=== PATIENT | male | born 1960 | race Caucasian/White ===

== ENCOUNTER 2024-06-12 18:12 | Emergency (ER) | payer BC, SELFPAY ==
--- OUTSIDE RECORDS SUMMARY | 2024-06-12 18:15 | XMS_ITS | Encounter Summary ---
Author Organization [facility] Address [address] [place] [address] Care Team Providers Care Automation Design Engineer Name Role Phone Lula Ruiz M.D. Primary Care Provider + Reason for Visit * Reason Comments HERNIA Encounter Details Date Type Department Care Team ([facility] st Contact Info) Description 06/08/2024 2:34 PM ACCOUNTING PROFESSIONAL - 06/08/2024 11:59 PM ACCOUNTING PROFESSIONAL Emergency [facility] [address] [place] [id number] Hernia Inguinal (Primary Dx) Discharge Disposition: Home or Self Care Social History Tobacco Use Types Packs/Day Years Used Date Smoking Tobacco: Every Day Cigarettes 0.8 25 Passive Smoke Exposure: Current Smokeless Tobacco: Never Alcohol Use Standard Drinks/Week Comments Yes 30 (1 standard drink = 0.6 oz pu re alcohol) Daily caffeine [facility] Utilities Answer Date Recorded In the past 12 months has [facility] [employer], oil, or water [employer] threatened to shut off services in your home? No 07/22/2023 Humiliation, Afraid, Rape, and Kick questionnair e Answer Date Recorded Within the last year, have y ou been afraid of your partner or ex-partner? No 07/13/2022 Within the last year, have y ou been humiliated or emotionally abused in other ways by your partner or ex-partner? No Within the last year, have y ou been kicked, hit, slapped, or otherwise physically hurt by your partner or ex-partner? No 07/13/2022 Within the last year, have y ou been raped or forced to have any kind of sexual activity by your partner or ex-partner? No 07/13/2022 Social Connection and Isolation Panel [NHANES] A nswer Date Recorded In a typical week, how many times do you talk on the phone with family, friends, or neighbors? Once a week 07/13/19 How often do you get togethe r with friends or relatives? Once a week 07/13/2022 How often do you attend chur or caodaism services? Never 07/13/2022 Do you belong to any clubs o r organizations such as taoist groups, unions, fraternal or athletic groups, or school groups? No 07/13/2022 How often do you attend meet ings of the clubs or organizations you belong to? Never 07/13/2022 Are you , , di vorced, , never , or living with a partner? Living with partner 07/13/2022 AUDIT-C Answer Date Recorded Q1: How often do you have a drink containing alc ohol? 2-4 times a month 07/13/2022 Q2: How many drinks containi ng alcohol do you have on a typical day when you are drinking? 1 or 2 07/13/2022 Q3: How often do you have si x or more drinks on one occasion? Never 07/13/2022 Overall Financial Resource Strain (CARDIA) Answe r Date Recorded How hard is it for you to pa y for the very basics like food, housing, medical care, and heating? Not hard at all 07/13/2022 PHQ-2 Answer Date Recorded PHQ-2 Score 2 05/25/2024 [facility] - Occupational Stress Questionnaire Answer Date Recorded Do you feel stress - tense, restless, nervous, or anxious, or unable to sleep at night because your mind is troubled all the time - these days? Only a little 07/13/2022 Exercise Vital Sign Answer Date Recorde d On average, how many days pe r week do you engage in moderate to strenuous exercise (like a brisk walk)? 0 days 07/22/2023 On average, how many minutes do you engage in exercise at this level? 0 min 07/22/2023 Hunger Vital Sign Answer Date Recorded Within the past 12 months, y ou worried that your food would run out before you got the money to buy more. Never true 07/22/19 24 Within the past 12 months, t he food you bought just didn't last and you didn't have money to get more. Never true 07/22/2023 PRAPARE - Transportation Answer Date Re corded In the past 12 months, has l ack of transportation kept you from medical appointments or from getting medications? No 09/2023 In the past 12 months, has l ack of transportation kept you from meetings, work, or from getting things needed for daily living? No 07/22/2023 Depression Answer Date Recor ded PHQ-9 Total Score (max 27) 9 07/18 Nutrition Answer Date Recorded On average, how many serving s of fruits and vegetables do you eat per day (serving size is equal to 1 cup or approximately the size of a tennis ball)? 0-2 07/22/2023 Dental Answer Date Recorded Dental: Regular Dentist Yes 07/22/19 Employment Answer Date Recorded Employment status Employed but not working due t o illness or injury 07/22/2023 Housing Stability Answer Date Recorded What is your living situation today? I have a [facility] place to live 07/22/2023 Education Answer Date Recorded What is the highest level of school you have completed or the highest degree you have received? 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 allopurinoL (Zyloprim) 100 mg tabletIndication s:Gout TAKE 1 TABLET(100 MG) BY MOUTH DAILY 90 tablet 3 04/29/2024 colchicine (Colcrys) 0.6 mg tabletIndication s:Pain Thumb Right Take 2 tablets (1.2 mg) once, then in 1 hour take 1 tablet (0.6 mg). 3 tablet 05/04/2024 indapamide (LozoL) 2.5 mg tablet TAKE 1 TABLET(2.5 MG) BY MOUTH DAILY 90 tablet 04/01/2024 indomethacin (Indocin) 50 mg capsuleIndicatio ns:Pain Thumb Right TAKE 1 CAPSULE(50 MG) BY MOUTH TWICE DAILY WITH MEALS 60 capsule 06/03/2024 lisinopriL (PRINIVIL,ZESTRI L) 20 mg tablet TAKE 1 TABLET(20 MG) BY MOUTH DAILY 90 tablet 3 10/21/2023 nicotine (Nicoderm CQ) 14 mg/24 hr patchIndications :Abuse Tobacco Smoking Place 1 patch on the skin daily. Apply 28 mg (1 x 21 mg patch and 1 x 7 mg patch) daily for 4-6 weeks, then taper in 7-14 mg steps every 2-6 weeks until off. Pharmacy - Place on file 14 patch 5 03/23/2024 nicotine (Nicoderm CQ) 21 mg/24 hr patchIndications :Abuse Tobacco Smoking Place 1 patch on the skin daily. Apply 28 mg (1 x 21 mg patch and 1 x 7 mg patch) daily for 4-6 weeks, then taper in 7-14 mg steps every 2-6 weeks until off. 14 patch 5 03/23/2024 nicotine (Nicoderm CQ) 7 mg/24 hr patchIndications :Abuse Tobacco Smoking Place 1 patch on the skin daily. Apply 28 mg (1 x 21 mg patch and 1 x 7 mg patch) daily for 4-6 weeks, then taper in 7-14 mg steps every 2-6 weeks until off. 14 patch 5 03/23/2024 NIFEdipine (ADALAT CC) 30 mg ER tablet Take 1 tablet (30 mg total) by mouth daily. 90 tablet 3 07/24/2023 rosuvastatin (Crestor) 10 mg tablet Take 1 tablet (10 mg total) by mouth at bedtime. 90 tablet 3 03/02/2024 tamsulosin (Flomax) 0.4 mg 24 hr capsule TAKE 1 CAPSULE(0.4 MG) BY MOUTH TWICE DAILY 180 capsule 3 06/12/2024 tamsulosin (Flomax) 0.4 mg 24 hr capsule Take 1 capsule (0.4 mg total) by mouth 2 (two) times a day. 60 capsule 11 06/08/2024 06/12/2024 documented as of this encounter Plan of Treatment Upcoming Encounters Date Type Department Care Team (Late st Contact Info) Description 06/14/2024 9:30 AM ACCOUNTING PROFESSIONAL Comprehensive Visit Department of Orthopedic Surgery in [place], [place] [address] [place] [address] Jake Rahman M.B.B.S. [address] [place] [address] 06/21/2024 9:15 AM ACCOUNTING PROFESSIONAL Procedure visit Department of Urology in [place], [place] [address], [place] [address] Jack Galvez M.D. [address] [place] [address] documented as of this encounter Procedures Procedure Name Priority Date/Time Associated Diagnosis Comments DX CHEST AP OR PA AND LATERAL 2 VIEWS RAD - Semiurgent (Fast; most ED patients; some inpatients) 06/08/2024 5:[address] ABDOMEN PELVIS WITH IV CONTRAST RAD - Semiurgent (Fast; most ED patients; some inpatients) 06/08/2024 5:23 PM ACCOUNTING PROFESSIONAL documented in this encounter Results * DX Chest AP or PA and Lateral 2 Views (06/08/2024 5:24 PM ACCOUNTING PROFESSIONAL) Anatomical Region Laterality Modality Chest, Thoracic RST LOS, Tho racic ARZ LOS, Thoracic FLA LOS N/A Digital Radiography Impressions 06/08/2024 5:49 PM ACCOUNTING PROFESSIONAL Comparison 03/13/2023. Normal heart size and cardiomediastinal silhouette. No focal consolidation, pleural effusions, or appreciable pneumothorax. Small nodular opacity within the right mid lung, unchanged since 06/05/2021 and may represent nipple shadow versus a small pulmonary nodule (likely benign given stability over time). Narrative 06/08/2024 5:49 PM ACCOUNTING PROFESSIONAL EXAM: DX CHEST AP OR PA AND LATERAL 2 VIEWS Procedure Note Andrew Clay M.D. - 06/08/2024 EXAM: DX CHEST AP OR PA AND LATERAL 2 VIEWS IMPRESSION: Comparison 03/13/2023. Normal heart size and cardiomediastinal silhouette. No focalconsolidation, pleural effusions, or appreciable pneumothorax. Smallnodular opacity within the right mid lung, unchanged since 06/05/2021 andmay represent nipple shadow versus a small pulmonary nodule (likely benign given stability over time). us Radha River C.N.P. IMG DIAGNOSTIC IMAGI NG PROCEDURES Final Result * CT Abdomen Pelvis with IV Contrast (06/08/2024 5:23 PM ACCOUNTING PROFESSIONAL) Anatomical Region Laterality Modality Abdomen, Pelvis, Abdominal R ST LOS, Abdominal ARZ LOS, Abdominal FLA LOS N/A Computed Tomography 06/08/2024 5:21 PM ACCOUNTING PROFESSIONAL Impressions 06/08/2024 5:47 PM ACCOUNTING PROFESSIONAL 1. No ventral abdominal wall or significant inguinal hernias. 2. Mild nonspecific urinary bladder wall thickening versus underdistention, potentially on the basis of chronic outlet obstruction given prostatomegaly measuring 5.4 cm transverse. 3. Possible mild nonspecific enteritis. Narrative 06/08/2024 5:47 PM ACCOUNTING PROFESSIONAL EXAM: CT ABDOMEN PELVIS WITH IV CONTRAST COMPARISON: 06/24/2022, 05/03/2022, 02/20/2022 CT abdomen/pelvis FINDINGS: LUNG BASES: Unremarkable. LIVER, GALLBLADDER, BILIARY TREE: Redemonstrated are innumerable small hepatic hypodensities, likely cysts and/or hemangiomas. Wedge-shaped area of hyperenhancement within the right hepatic lobe, likely perfusional. Gallbladder is unremarkable. No intrahepatic or extra hepatic biliary ductal dilation. SPLEEN: Unremarkable. PANCREAS: Unremarkable. ADRENAL GLANDS: Unremarkable. KIDNEYS, URETERS, BLADDER: Multiple small bilateral renal hypodensities the largest of which are likely cysts while others are too small to further characterize. No hydronephrosis or urolithiasis. Mild nonspecific urinary bladder wall thickening versus underdistention, potentially on the basis of chronic outlet obstruction given prostatomegaly measuring 5.4 cm transverse. PELVIC CONTENTS: No significant inguinal hernia. GI TRACT: No bowel obstruction. Surgical changes right hemicolectomy. Fluid within nondilated loops of small bowel with a few areas of mild wall thickening versus underdistention, correlate for mild nonspecific enteritis. MESENTERY, RETROPERITONEUM: No pathologically enlarged abdominopelvic lymph nodes. No ascites. VASCULAR: ASVD of the nonaneurysmal abdominal aorta with patent proximal major visceral branches. Portal venous system is patent. BODY WALL SOFT TISSUES: No ventral abdominal wall hernias. BONES: No acute or aggressive appearing osseous abnormalities. Procedure Note Andrew Clay M.D. - 06/08/2024 EXAM: CT ABDOMEN PELVIS WITH IV CONTRAST COMPARISON: 06/24/2022, 05/03/2022, 02/20/2022 CT abdomen/pelvis FINDINGS: LUNG BASES: Unremarkable. LIVER, GALLBLADDER, BILIARY TREE: Redemonstrated are innumerable smallhepatic hypodensities, likely cysts and/or hemangiomas. Wedge-shaped areaof hyperenhancement within the right hepatic lobe, likely perfusional.Gallbladder is unremarkable. No intrahepatic or extra hepatic biliary ductal dilation. SPLEEN: Unremarkable. PANCREAS: Unremarkable. ADRENAL GLANDS: Unremarkable. KIDNEYS, URETERS, BLADDER: Multiple small bilateral renal hypodensitiesthe largest of which are likely cysts while others are too small tofurther characterize. No hydronephrosis or urolithiasis. Mild nonspecificurinary bladder wall thickening versus underdistention, potentially on the basis of chronic outlet obstructiongiven prostatomegaly measuring 5.4 cm transverse. PELVIC CONTENTS: No significant inguinal hernia. GI TRACT: No bowel obstruction. Surgical changes right hemicolectomy.Fluid within nondilated loops of small bowel with a few areas of mild wallthickening versus underdistention, correlate for mild nonspecificenteritis. MESENTERY, RETROPERITONEUM: No pathologically enlarged abdominopelviclymph nodes. No ascites. VASCULAR: ASVD of the nonaneurysmal abdominal aorta with patent proximalmajor visceral branches. Portal venous system is patent. BODY WALL SOFT TISSUES: No ventral abdominal wall hernias. BONES: No acute or aggressive appearing osseous abnormalities. IMPRESSION: 1. No ventral abdominal wall or significant inguinal hernias. 2. Mild nonspecific urinary bladder wall thickening versusunderdistention, potentially on the basis of chronic outlet obstructiongiven prostatomegaly measuring 5.4 cm transverse. 3. Possible mild nonspecific enteritis. Radha River C.N.P. IMCindy CT PROCEDURES Fi nal Result documented in this encounter Visit Diagnoses Diagnosis Hernia Inguinal- Primary documented in this encounter Administered Medications Inactive Administered Medications - up to 3 most recent administrations Medication Order MAR Action Action Date Dose Rate Site iohexoL 300 mg iodine/mL solution 150 mL (Omnipaque) 150 mL, intravenous, Once in imaging, contrast, Starting on Fri06/08/24 at 1720, For 1 dose, If administered oral then dilute in 900 mL water Given 06/08/2024 5:14 PM ACCOUNTING PROFESSIONAL 100 mL Right Upper Arm sodium chloride 0.9 % flush 100 mL 100 mL, intravenous, Once, On Fri06/08/24 at 1730, For 1 dose Given 06/08/2024 5:14 PM ACCOUNTING PROFESSIONAL 75 mL Right Upper Arm sodium chloride 0.9 % injection 10 mL 10 mL, intravenous, As needed, line care, Starting on Fri06/08/24 at 1721 Given 06/08/2024 5:10 PM ACCOUNTING PROFESSIONAL 10 mL Right Upper Arm documented in this encounter Active and Recently Administered Medications Times are shown in ACCOUNTING PROFESSIONAL. Scheduled Medication Order 06/06/2024 06/07/2024 06/08/2024 sodium chloride 0.9 % flush 100 mL (COMPLETED) 100 mL, intravenous, Once, On Fri06/08/24 at 1730, For 1 dose 171 (Given - Provid er: Kalpana Simpson(R)(CT), R.T.(R)) PRN Medication Order 06/06/2024 06/07/2024 06/08/2024 iohexoL 300 mg iodine/mL solution 150 mL (Omnipaque) (COMPLETED) 150 mL, intravenous, Once in imaging, contrast, Starting on Fri06/08/24 at 1720, For 1 dose, If administered oral then dilute in 900 mL water 171 (Given - Provid er: Valdez SimpsonTTrent(R)(CT), R.T.(R)) sodium chloride 0.9 % injection 10 mL (CANCELED) 10 mL, intravenous, As needed, line care, Starting on Fri06/08/24 at 1721 1710 (Given - Provid er: Kalpana Simpson(R)(CT), Kalpana(R)) documented in this encounter Additional Health Concerns Assessment Noted Time PHQ-9 Depression Total Score: 9 07/19/19 23 11:57 AM ACCOUNTING PROFESSIONAL documented as of this encounter Care Teams Automation Design Engineer Relationship Specialty Start Date End Date Lula Ruiz M.D. [address] [phone] PCP - General 10/31/23 documented as of this encounter
--- OUTSIDE RECORDS SUMMARY | 2024-06-12 18:15 | XMS_ITS ---
Author Organization [facility] Address [address] [place] [id number] Care Team Providers Care Mailroom Supervisor Name Role Phone Lula Ruiz M.D. Primary Care Provider + Active Problems * This document contains information received from the source organization and may not represent a complete record from that organization. Problem Noted Date Diagnosed Date Primary Osteoarthritis Wrist Left 06/17/2023 Tumor Warthin's 08/20/2022 Overview (08/20/2022): Added automatically from request for surgery [id number] Pain Foot Right 02/22/2022 Gout 02/22/2022 Assessment & Plan (03/23/2024 4:25 PM DOPE POURER): Uric acid slightly above goal, however he has not had any gout flares since starting medication. Therefore decided not to increase his allopurinol today. Continue on 100 mg daily. 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 Blood pressure overall is well controlled. Continue on lisinopril 20 mg daily and Lozol 2.5 mg daily. Hyperlipidemia Assessment & Plan (03/23/2024 4:26 PM DOPE POURER): Cholesterol levels well controlled. LDL at 79. Continue on rosuvastatin 10 mg daily. Chronic Obstructive Pulmonary Disease Abuse Tobacco Smoking Assessment & Plan (03/23/2024 4:28 PM DOPE POURER): Patient would like to try the nicotine patches again. Will send prescriptions for him to slowly taper due to long smoking history. Current Treatment and Therapy Plans No current plan information found. Past Treatment and Therapy Plans No past plan information found. Lifetime Dose Tracking * Chemical Lifetime Dose Automatic Entry Manual Entr y Radiation 29.79 mGy 29.79 mGy 0 mGy Fluoro Time 1.004 minutes 1.004 minutes 0 minutes Resolved Problems Problem Noted Date Diagnosed Date Resolved Date Follow Up Examination Postoperative Visit 09/17/2022 03/06/2023 Callus Fenton 07/19/2021 08/21/2022 Need Vaccine Immunization Pneumococcal 07/19/2021 03/18/2022 Peritonitis Unspecified 06/22/2020 1005/2021 Sepsis 06/13/2020 03/18/2022 Pain Postoperative 06/02/2020 Preoperative Exam 05/31/2020 03/18/2022 Malignant Neoplasm Of Colon 05/30/2020 07/03/2020 Overview (05/30/2020): Added automatically from request for surgery [id number]
--- OUTSIDE RECORDS SUMMARY | 2024-06-12 18:15 | XMS_ITS | Clinical Summary ---
[facility] Address [address] [place] [address] Care Team Providers Care Barrel Washer Name Role Phone Lula Ruiz M.D. Primary Care Provider + Source Comments Patient records contain information from all sites at [facility]. For routine questions regarding patient records, call [phone] during business hours, M-F 8:00 AM - 5:00 PM Central Time. Record requests for emergency care only can be directed to [phone] at any time.[facility] Allergies No known active allergies Medications * This document contains information received from the source organization and may not represent a complete record from that organization. acetaminophen (TYLENOL) 500 mg tablet Take 500 mg by mouth every 6 (six) hours as needed for pain. Active NIFEdipine (ADALAT CC) 30 mg ER tablet Take 1 tablet (30 mg total) by mouth daily. 90 tablet 3 07/24/19 24 Active lisinopriL (PRINIVIL,ZEST RIL) 20 mg tablet TAKE 1 TABLET(20 MG) BY MOUTH DAILY 90 tablet 3 10/21/19 24 Active rosuvastatin (Crestor) 10 mg tablet Take 1 tablet (10 mg total) by mouth at bedtime. 90 tablet 3 03/02/20 24 Active nicotine (Nicoderm CQ) 7 mg/24 hr patchIndicatio ns:Abuse Tobacco Smoking Place 1 patch on the skin daily. Apply 28 mg (1 x 21 mg patch and 1 x 7 mg patch) daily for 4-6 weeks, then taper in 7-14 mg steps every 2-6 weeks until off. 14 patch 5 03/23/20 24 Active nicotine (Nicoderm CQ) 14 mg/24 hr patchIndicatio ns:Abuse Tobacco Smoking Place 1 patch on the skin daily. Apply 28 mg (1 x 21 mg patch and 1 x 7 mg patch) daily for 4-6 weeks, then taper in 7-14 mg steps every 2-6 weeks until off. Pharmacy - Place on file 14 patch 5 03/23/20 24 Active nicotine (Nicoderm CQ) 21 mg/24 hr patchIndicatio ns:Abuse Tobacco Smoking Place 1 patch on the skin daily. Apply 28 mg (1 x 21 mg patch and 1 x 7 mg patch) daily for 4-6 weeks, then taper in 7-14 mg steps every 2-6 weeks until off. 14 patch 5 03/23/20 24 Active indapamide (LozoL) 2.5 mg tablet TAKE 1 TABLET(2.5 MG) BY MOUTH DAILY 90 tablet 04/01/20 24 Active allopurinoL (Zyloprim) 100 mg tabletIndicati ons:Gout TAKE 1 TABLET(100 MG) BY MOUTH DAILY 90 tablet 3 04/29/20 24 Active colchicine (Colcrys) 0.6 mg tabletIndicati ons:Pain Thumb Right Take 2 tablets (1.2 mg) once, then in 1 hour take 1 tablet (0.6 mg). 3 tablet 05/04/20 24 Active indomethacin (Indocin) 50 mg capsuleIndicat ions:Pain Thumb Right TAKE 1 CAPSULE(50 MG) BY MOUTH TWICE DAILY WITH MEALS 60 capsule 06/03/19 25 Active tamsulosin (Flomax) 0.4 mg 24 hr capsule TAKE 1 CAPSULE(0.4 MG) BY MOUTH TWICE DAILY 180 capsule 3 06/12/19 25 Active gabapentin (Neurontin) 300 mg capsuleIndicat ions:Pain Thumb Right Take 1 capsule (300 mg total) by mouth 2 (two) times a day. 90 capsule 1 03/23/20 24 025 Discontinued(Ex ternal Provider Cancel) diclofenac sodium (Voltaren) 75 mg EC tabletIndicati ons:Pain Thumb Right TAKE 1 TABLET(75 MG) BY MOUTH TWICE DAILY NEEDED FOR PAIN 180 tablet 04/06/20 24 025 Discontinued(Al ternate therapy) indomethacin (Indocin) 50 mg capsuleIndicat ions:Pain Thumb Right Take 1 capsule (50 mg total) by mouth 2 (two) times a day with meals. 60 capsule 05/04/20 24 025 Discontinued naproxen (Naprosyn) 500 mg tabletIndicati ons:Pain Thumb Right TAKE 1 TABLET(500 MG) BY MOUTH TWICE DAILY WITH MEALS 60 tablet 05/13/20 24 025 Discontinued(Ex ternal Provider Cancel) tamsulosin (Flomax) 0.4 mg 24 hr capsule Take 1 capsule (0.4 mg total) by mouth daily. 90 capsule 3 05/31/19 25 025 Discontinued(Do se adjustment) tamsulosin (Flomax) 0.4 mg 24 hr capsule Take 1 capsule (0.4 mg total) by mouth 2 (two) times a day. 180 capsule 05/31/19 25 025 Discontinued(Re order) tamsulosin (Flomax) 0.4 mg 24 hr capsule Take 1 capsule (0.4 mg total) by mouth 2 (two) times a day. 60 capsule 11 06/08/19 25 025 Discontinued Active Problems Problem Noted Date Diagnosed Date Primary Osteoarthritis Wrist Left 06/17/2023 Tumor Warthin's 08/20/2022 Overview (08/20/2022): Added automatically from request for surgery [id number] Pain Foot Right 02/22/2022 Gout 02/22/2022 Assessment & Plan (03/23/2024 4:25 PM COMMUNITY DEVELOPMENT OFFICER): Uric acid slightly above goal, however he [...] 02/02/2019 Assessment & Plan (03/23/2024 4:29 PM COMMUNITY DEVELOPMENT OFFICER): Reviewed labs today. Blood pressure overall is well controlled. Continue on lisinopril 20 mg daily and Lozol 2.5 mg daily. Hyperlipidemia Assessment & Plan (03/23/2024 4:26 PM COMMUNITY DEVELOPMENT OFFICER): Cholesterol levels well controlled. LDL at 79. Continue on rosuvastatin 10 mg daily. Chronic Obstructive Pulmonary Disease Abuse Tobacco Smoking Assessment & Plan (03/23/2024 4:28 PM COMMUNITY DEVELOPMENT OFFICER): Patient would like to try the nicotine patches again. Will send prescriptions for him to slowly taper due to long smoking history. Resolved Problems Problem Noted Date Diagnosed Date Resolved Date Follow Up Examination Postoperative Visit 09/17/2022 03/06/2023 Callus Stamping Ground 07/19/2021 08/21/2022 Need Vaccine Immunization Pneumococcal 07/19/2021 03/18/2022 Peritonitis Unspecified 06/22/202002/18 Sepsis 06/13/2020 03/18/2022 Pain Postoperative 06/02/2020 Preoperative Exam 05/31/2020 03/18/2022 Malignant Neoplasm Of Colon 05/30/2020 07/03/2020 Overview (05/30/2020): Added automatically from request for surgery [id number] Encounters Date Type Department Care Team Description 06/09/2024 Clinical Communication Department of Family Medicine, [facility], in [place], [place] [address] [place] [phone] Cristel Price 06/08/2024 2:34 PM COMMUNITY DEVELOPMENT OFFICER - 06/08/2024 11:59 PM COMMUNITY DEVELOPMENT OFFICER Emergency [facility] [address] [place] [phone] Hernia Inguinal (Primary Dx) Discharge Disposition: Home or Self Care 06/08/2024 Refill Department of Family Medicine, [facility], in [address] [address] Lula Ruiz M.D. Med Refill 06/03/2024 Refill Department of [facility], [facility], in [address] [address] Celeste Romero APRN, C.N.P., D.N.P. Med Refill 06/01/2024 Refill Department of [facility], [facility], in [address] [address] Lula Ruiz M.D. Med Refill 05/31/2024 9:30 AM COMMUNITY DEVELOPMENT OFFICER Office Visit Department of [facility], [facility], in [address] [address] Trish Cardoso APRN, C.N.P. Preoperative Exam (Primary Dx) 05/31/2024 8:45 AM COMMUNITY DEVELOPMENT OFFICER Office Visit Department of Urology in [address] [address] Jack Galvez M.D. 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 Med Refill 04/28/2024 Refill Department of Family Medicine, [facility], in [address] [address] Dottie Pavon M.D. Med Refill 04/13/2024 4:19 PM COMMUNITY DEVELOPMENT OFFICER - 04/13/2024 11:59 PM COMMUNITY DEVELOPMENT OFFICER Hospital Encounter Department of Radiology in [address] [address] Celeste Romero APRN C.N.PTrent, D.N.P. Pain Thumb Right Discharge Disposition: Home or Self Care 04/07/2024 Refill Department of Family Medicine, [facility], in [address] [address] Lula Ruiz M.D. Med Refill 04/06/2024 Refill Department of Family Medicine, [facility], in [address] [address] Celeste Romero APRN C.N.P., D.N.P. Med Refill 03/31/2024 Refill Department of Family Medicine, [facility], in [address] [place] [address] Dottie Pavon M.D. Med Refill 03/24/2024 Refill Department of Family Medicine, [facility], in [address] [address] Lula Ruiz M.D. Med Refill 03/23/2024 3:30 PM COMMUNITY DEVELOPMENT OFFICER Comprehensive Visit Department of Family Medicine, [facility], in [address] [address] Celeste Romero APRN, C.N.P., D.N.P. Pain Thumb Right (Primary Dx); Gout; Abuse Tobacco Smoking; Malnutrition Severe Protein-Calorie (HCC); Hyperlipidemia; Hypertension Essential Primary 03/21/2024 12:47 PM COMMUNITY DEVELOPMENT OFFICER - 03/21/2024 11:59 PM COMMUNITY DEVELOPMENT OFFICER Hospital Encounter Department of Laboratory Medicine in [place], [place] [address] [place] [address] Lula Ruiz M.D. Hypertension Essential Primary; Malnutrition Severe Protein-Calorie (HCC); Gout; Hyperlipidemia; Screening Examination Diabetes Mellitus Discharge Disposition: Home or Self Care from Last 3 Months Immunizations Immunization Administration Dates Next Due RZV (SHINGRIX) 04/09/2020,01/06/2020 SARS-COV-2 (COVID-19) - MODERNA(Discontinued) 04/11/2021,08/28/2020,07/27/2020 Td, (Adult) Unspecified 10/29/2014 influenza vaccine quad (FLUZ ONE/FLUARIX) (6 months and older)(PF) 04/11/2021,06/02/2020 Family History Medical History Relation Name Comments No Known Problems Brother No Known Problems Father Lung cancer Maternal Grandfather Ed mikeaes Hypertension Mother Kayleen Simmons No Known Problems Sister 1 Breast cancer Sister 2 Kinjal Johnson Relation Name Status Comments Brother Alive Father Alive Maternal Grandfather Ed yahraes Alive Mother Kayleen Simmons Alive Sister 1 Alive Sister 2 Kinjal Johnson Alive Social History Tobacco Use Types Packs/Day Years Used Date Smoking Tobacco: Every Day Cigarettes 0.8 25 Passive Smoke Exposure: Current Smokeless Tobacco: Never Tobacco Cessation:Ready to Q uit: Not Asked; Counseling Given: Not Answered Alcohol Use Standard Drinks/Week Comments Yes 30 (1 standard drink = 0.6 oz pu re alcohol) Daily caffeine [facility] Utilities Answer Date Recorded In the past 12 months has [facility] [employer], or water [employer] threatened to shut off services in your [...] 07/13/2022 How often do you attend chur ch or cheondoism services? Never 07/13/2022 Do you belong to any clubs o r organizations such as mormonism groups, unions, fraternal or athletic groups, or [...] Answer Date Recorded PHQ-2 Score 2 05/25/2024 [facility] - Occupational [...] money to buy more. Never true 07/22/19 Within the past 12 months, t he [...] your living situation today? [facility] a [facility] live 07/22/2023 Education Answer [...] file Not on file Not on file Last Filed Vital Signs Vital Sign Reading Time Taken Comments Blood Pressure 102/65 05/31/2024 9:07 AM COMMUNITY DEVELOPMENT OFFICER Pulse 80 05/31/2024 9:07 AM COMMUNITY DEVELOPMENT OFFICER Temperature 37.3 C (99.1 F) 05/31/2024 9:07 AM COMMUNITY DEVELOPMENT OFFICER Respiratory Rate 26 05/24/2023 10:46 PM COMMUNITY DEVELOPMENT OFFICER Oxygen Saturation 100% 05/25/2023 12:15 AM COMMUNITY DEVELOPMENT OFFICER Inhaled Oxygen Concentration - - Weight 65.6 kg (144 lb 10 oz) 05/31/2024 9:07 AM COMMUNITY DEVELOPMENT OFFICER Height 177 cm (5' 9.69) 05/31/2024 9:07 AM COMMUNITY DEVELOPMENT OFFICER Body Mass Index 20.94 05/31/2024 9:07 AM COMMUNITY DEVELOPMENT OFFICER Plan of Treatment Upcoming Encounters Date Type Department Care Team (Late st Contact Info) Description 06/14/2024 9:30 AM COMMUNITY DEVELOPMENT OFFICER Comprehensive Visit Department of Orthopedic Surgery in [place], [place] [address] [place] [address] Jake Rahman M.B.B.S. [address] [place] [address] 06/21/2024 9:15 AM COMMUNITY DEVELOPMENT OFFICER Procedure visit Department of Urology in [place], [place] [address] [address] Jack Galvez M.D. [address], [place] [address] Health Maintenance Due Date Last Done Comments CT Colonography 1960 Cologuard 1960 Pneumococcal vaccine (50+ years) (1 of 2 - PCV) 1979 DTaP,Tdap,and Td Vaccines (1 - Tdap) 10/30/2014 10/29/2014 RSV vaccine - (32-36 weeks) or 60+ years (1 - Risk 60-74 years 1-dose series) 2020 COVID-19 Vaccine ( - 2023- season) 2024 04/11/2021, 08/28/2020, 07/27/2020 Influenza Vaccine (#1) 2024 04/11/2021, 2020 Visit: Chronic Disease, age 18+ 03/23/2025 03/23/2024, 03/20/2022 Colonoscopy 03/26/2025 03/26/2022, 11/0 12/2021, 01/20/2019, Additional history exists Colorectal Cancer Surveillance 03/26/2025 Office Visit for Blood Pressure Check / Re-check 05/31/2025 05/31/2024 Creatinine Level (Kidney Function Test) 06/08/2025 06/08/2024, 03/21/2024, 06/09/2023, Additional history exists Potassium Level 06/08/2025 06/08/2024, 07/2023, 06/09/2023, Additional history exists Sodium Level 06/08/2025 06/08/2024, 07/2023, 06/09/2023, Additional history exists Fasting Glucose for Diabetes Screening 06/08/2027 06/08/2024, 03/21/2024, 03/21/2024, Additional history exists Lipid (Cholesterol) Screening 03/21/2029 03/21/2024, 03/13/2023, 03/20/2022, Additional history exists Hepatitis C Screening Completed 12/31/2018 Zoster Vaccines Completed 04/09/2020, 01/06/2020 Depression Screening (Annual PHQ-2) Completed 05/31/2024, 05/25/2024 IPV Vaccines Aged Out No longer eligi ble based on patient's age to complete this topic Medical Devices Implanted Type Area Horse Identifier Device Identifier Shelf Expiration Date Model / Serial / Lot Clp [facility] - [id number] Implanted:Qty : 1 on 08/29/2022 by Ángel Pack M.D. at [facility] Hardware e.g. pins/screws/ rods Left: Neck Ethicon [id number] / / Mitchell [employer]hn Seprafilm 5x6 - [id number] Implanted:Qty : 1 on 06/01/2020 by Narayan Phan M.D. at [facility] Mesh or Patch Right: Abdomen Lewis 10/21/2022 [id number] / / [id number] Mitchell [employer] Seprafilm 5x6 - [id number] Implanted:Qty : 1 on 06/04/2020 by Estelle Berger M.D. at [facility] Mesh or Patch Lewis 11/01/2022 [id number] / / [id number] Procedures Procedure Name Priority Date/Time Associated Diagnosis Comments DX CHEST AP OR PA AND LATERAL 2 VIEWS RAD - Semiurgent (Fast; most ED patients; some inpatients) 06/08/2024 5:24 PM COMMUNITY DEVELOPMENT OFFICER CT ABDOMEN PELVIS WITH IV CONTRAST RAD - Semiurgent (Fast; most ED patients; some inpatients) 06/08/2024 5:23 PM COMMUNITY DEVELOPMENT OFFICER DX THUMB RIGHT RAD - Routine (most inpatients and all outpatients) 04/13/2024 4:41 PM COMMUNITY DEVELOPMENT OFFICER Pain Thumb Right HEMOGLOBIN A1C, B Routine 03/21/2024 12:58 PM COMMUNITY DEVELOPMENT OFFICER Screening Examination Diabetes Mellitus LIPID PANEL, S Routine 03/21/2024 12:58 PM COMMUNITY DEVELOPMENT OFFICER Hyperlipidemia URIC ACID, S/P Routine 03/21/2024 12:58 PM COMMUNITY DEVELOPMENT OFFICER Gout COMPREHENSIVE METABOLIC PANEL, S/P Routine 03/21/2024 12:58 PM COMMUNITY DEVELOPMENT OFFICER Hypertension Essential Primary Malnutrition Severe Protein-Calorie (HCC) COLONOSCOPY Routine 03/26/2022 8:31 AM COMMUNITY DEVELOPMENT OFFICER Blood In Stool HCV AB SCRN W/REFLEX TO HCV PCR, S Routine 12/31/2018 5:21 PM CDT Screening Test Laboratory from Last 3 Months or Most Recently Relevant to Health Maintenance Results * DX Chest AP or PA and Lateral 2 Views (06/08/2024 5:24 PM COMMUNITY DEVELOPMENT OFFICER) Anatomical Region Laterality Modality Chest, Thoracic RST LOS, Tho racic ARZ LOS, Thoracic FLA LOS N/A Digital Radiography Impressions 06/08/2024 5:49 PM COMMUNITY DEVELOPMENT OFFICER Comparison 03/13/2023. Normal heart size and cardiomediastinal silhouette. No focal consolidation, pleural effusions, or appreciable pneumothorax. Small nodular opacity within the right mid lung, unchanged since 06/05/2021 and may represent nipple shadow versus a small pulmonary nodule (likely benign given stability over time). Narrative 06/08/2024 5:49 PM COMMUNITY DEVELOPMENT OFFICER EXAM: DX CHEST AP OR PA AND [...] given stability over time). us Radha River C.N.PTrent IMG DIAGNOSTIC IMAGI NG PROCEDURES Final Result * CT Abdomen Pelvis with IV Contrast (06/08/2024 5:23 PM COMMUNITY DEVELOPMENT OFFICER) Anatomical Region Laterality Modality Abdomen, Pelvis, Abdominal R ST LOS, Abdominal ARZ LOS, Abdominal FLA LOS N/A Computed Tomography 06/08/2024 5:21 PM COMMUNITY DEVELOPMENT OFFICER Impressions 06/08/2024 5:47 PM COMMUNITY DEVELOPMENT OFFICER 1. No ventral abdominal wall or significant inguinal hernias. 2. Mild nonspecific urinary bladder wall thickening versus underdistention, potentially on the basis of chronic outlet obstruction given prostatomegaly measuring 5.4 cm transverse. 3. Possible mild nonspecific enteritis. Narrative 06/08/2024 5:47 PM COMMUNITY DEVELOPMENT OFFICER EXAM: CT ABDOMEN PELVIS WITH IV CONTRAST [...] Possible mild nonspecific enteritis. Radha River C.N.P. IMG CT PROCEDURES Fi nal Result * DX Thumb Right (04/13/2024 4:41 PM COMMUNITY DEVELOPMENT OFFICER) Anatomical Region Laterality Modality Upper Extremity, Fingers, Mu sculoskeletal RST LOS, Musculoskeletal ARZ LOS, Muskuloskeletal FLA LOS Right Digit al Radiography Impressions 04/13/2024 4:58 PM COMMUNITY DEVELOPMENT OFFICER Right thumb: Moderate chronic degenerative changes of the first CMC joint. Mild degenerative changes in the IP joint. Negative for acute fracture or dislocation. No cortical erosions. No radiopaque foreign bodies. Comparison, 03/13/2023. Narrative 04/13/2024 4:58 PM COMMUNITY DEVELOPMENT OFFICER EXAM: DX THUMB RIGHT Procedure Note Arslan Orozco M.B., Larry, MTed. - 04/13/2024 EXAM: DX THUMB RIGHT IMPRESSION: Right thumb: Moderate chronic degenerative changes of the first CMC joint.Mild degenerative changes in the IP joint. Negative for acute fracture ordislocation. No cortical erosions. No radiopaque foreign bodies.Comparison, 03/13/2023. Celetse Romero APRN, C.N.P., D.N.P. IMG DIAGNO STIC IMAGING PROCEDURES Final Result * Lipid Panel (03/21/2024 12:58 PM COMMUNITY DEVELOPMENT OFFICER) Pathologist [facility] Triglycerides 102 mg/dL 03/22/2024 8:39 AM COMMUNITY DEVELOPMENT OFFICER OWAT Comment: ----REFERENCE VALUE---- Normal: <150 mg/dL Borderline High: 150-199 mg/dL High: 200-499 mg/dL Very High: > or =500 mg/dL Cholesterol, Total 155 mg/dL 2023 8:39 AM COMMUNITY DEVELOPMENT OFFICER OWAT Comment: ----REFERENCE VALUE---- Desirable: < 200 mg/dL Borderline High: 200 - 239 mg/dL High: > or = 240 mg/dL Cholesterol, LDL, Calculated 79 mg/dL 03/22/2024 8:39 AM COMMUNITY DEVELOPMENT OFFICER OWAT Comment: ----REFERENCE VALUE---- Desirable: <100 mg/dL Above Desirable: 100-129 mg/dL Borderline High: 130-159 mg/dL High: 160-189 mg/dL Very High: >=190 mg/dL ----ADDITIONAL INFORMATION---- LDL cholesterol calculated using the Schmidt/NIH equation. Cholesterol, HDL 57 >=40 mg/dL 03/22/20 8:39 AM COMMUNITY DEVELOPMENT OFFICER OWAT Cholesterol, Non-HDL, Calculated 98 mg/dL 03/22/2024 8:39 AM COMMUNITY DEVELOPMENT OFFICER OWAT Comment: ----REFERENCE VALUE---- Desirable: <130 mg/dL Above Desirable: 130-159 mg/dL Borderline High: 160-189 mg/dL High: 190-219 mg/dL Very High: > or =220 mg/dL Fasting (8 HR or more) Yes 03/21/2024 12:58 PM COMMUNITY DEVELOPMENT OFFICER OWAT Blood (Blood, Venous) 03/21/2024 12:58 PM COMMUNITY DEVELOPMENT OFFICER 03/21/2024 1:29 PM COMMUNITY DEVELOPMENT OFFICER us Lula Ruiz M.D. LAB BLOOD ADD-ON Final R esult Performing Organization Address City/[facility]/ZIP Co de Phone Number [facility] [address] [place] [phone], [facility] [place] [address] [place] [phone] * Uric Acid (03/21/2024 12:58 PM COMMUNITY DEVELOPMENT OFFICER) Uric Acid, P 6.1 3.7 - 8.0 mg/dL 03/21/2024 7:25 PM COMMUNITY DEVELOPMENT OFFICER AUST Blood (Blood, Venous) 03/21/2024 12:58 PM COMMUNITY DEVELOPMENT OFFICER 03/21/2024 7:12 PM COMMUNITY DEVELOPMENT OFFICER us Lula Ruiz M.D. LAB BLOOD ADD-ON Final R esult [facility] [address] [place] [address], [facility] [address] [place] [address] * Hemoglobin A1c (03/21/2024 12:58 PM COMMUNITY DEVELOPMENT OFFICER) Hemoglobin A1c, B 5.5 4.2 - 5.6 % 03/22/2024 8:43 AM COMMUNITY DEVELOPMENT OFFICER OWAT Blood (Blood, Venous) 03/21/2024 12:58 PM COMMUNITY DEVELOPMENT OFFICER 03/21/2024 1:29 PM COMMUNITY DEVELOPMENT OFFICER us Lula Ruiz M.D. LAB BLOOD ADD-ON Final R esult [facility] [address] [place] [address], [facility] [place] [address] [place] [address] * (ABNORMAL) Comprehensive Metabolic Panel (03/21/2024 12:58 PM COMMUNITY DEVELOPMENT OFFICER) Potassium, P 3.9 3.6 - 5.2 mmol/L 03/22/2024 8:39 AM COMMUNITY DEVELOPMENT OFFICER OWAT Sodium, P 137 135 - 145 mmol/L 03/22/2024 8:39 AM COMMUNITY DEVELOPMENT OFFICER OWAT Chloride, P 96(L) 98 - 107 mmol/L 03/22/2024 8:39 AM COMMUNITY DEVELOPMENT OFFICER OWAT Bicarbonate, P 28 22 - 29 mmol/L 03/22/2024 8:39 AM COMMUNITY DEVELOPMENT OFFICER OWAT Anion Gap, P 13 7 - 15 03/22/2024 8:39 AM COMMUNITY DEVELOPMENT OFFICER OWAT BUN (Blood Urea Nitrogen), P 11 8 - 24 mg/dL 03/22/2024 8:39 AM COMMUNITY DEVELOPMENT OFFICER OWAT Creatinine 0.83 0.74 - 1.35 mg/dL 03/22/2024 8:39 AM COMMUNITY DEVELOPMENT OFFICER OWAT Estimated GFR (eGFR) >90 >=60 mL/min/BS A 03/22/2024 8:39 AM COMMUNITY DEVELOPMENT OFFICER OWAT Comment: Estimated GFR calculated using the 2020 CKD_EPI creatinine equation. Calcium, Total, P 9.6 8.8 - 10.2 mg/dL 03/22/2024 8:39 AM COMMUNITY DEVELOPMENT OFFICER OWAT Glucose, P 89 70 - 140 mg/dL 03/22/2024 8:39 AM COMMUNITY DEVELOPMENT OFFICER [employer]AT Protein, Total, P 7.5 6.3 - 7.9 g/dL 03/22/2024 8:39 AM COMMUNITY DEVELOPMENT OFFICER OWAT Albumin, P 4.7 3.5 - 5.0 g/dL 03/22/2024 8:39 AM COMMUNITY DEVELOPMENT OFFICER OWAT Aspartate Aminotransferase (AST), P 28 8 - 48 U/L 03/22/2024 8:39 AM COMMUNITY DEVELOPMENT OFFICER OWAT Alkaline Phosphatase, P 118 40 - 129 U/L 03/22/2024 8:39 AM COMMUNITY DEVELOPMENT OFFICER OWAT Alanine Aminotransferase (ALT), P 22 7 - 55 U/L 03/22/2024 8:39 AM COMMUNITY DEVELOPMENT OFFICER OWAT Bilirubin, Total, P 0.4 0.0 - 1.2 mg/dL 03/22/2024 8:39 AM COMMUNITY DEVELOPMENT OFFICER OWAT Blood (Blood, Venous) 03/21/2024 12:58 PM COMMUNITY DEVELOPMENT OFFICER 03/21/2024 1:29 PM COMMUNITY DEVELOPMENT OFFICER us Lula Ruiz M.D. LAB BLOOD ADD-ON Final R esult [facility] [address] [place] [address], [place] [facility] [place] [address] [place] [address] * HCV Ab Scrn w/Reflex to HCV PCR, Serum (12/31/2018 5:21 PM CDT) HCV Ab Screen, S Negative Negative 01/01/2019 8:23 AM CDT Comment:[id number] rat io is <1.00. Blood (Blood, Venous) 12/31/2018 5:21 PM CDT 01/01/2019 7:00 AM CDT us Luke Baca M.D. LAB MICROBIOLOGY - BLOOD ORDERA BLES Final Result [facility] [address] [place] [address] from Last 3 Months or Most Recently Relevant to Health Maintenance Insurance [employer] [place] [address] [id number] Advance Directives For more information, please contact: [phone] * Full Code (Latest Code Status on File) Date Activated Date Inactivated Comments 08/29/2022 12:09 PM 08/29/2022 5:58 PM Question Answer Comments Full Code: Not Discussed Due to: Patient not available * Full Code Date Activated Date Inactivated Comments 06/01/2020 12:52 PM 06/19/2020 11:06 PM Question Answer Comments Full Code: Discussed * Full Code Date Activated Date Inactivated Comments 06/01/2020 6:22 AM 06/01/2020 12:52 PM Question Answer Comments Full Code: Discussed Care Teams Barrel Washer Relationship Specialty Start Date End Date Lula Ruiz M.D. [address] [place] [phone] PCP - General 10/31/23
--- OUTSIDE RECORDS SUMMARY | 2024-06-12 18:15 | XMS_ITS | Referral Summary ---
Author Organization [facility] Address [address] [place] [address] Care Team Providers Care Cattle Rancher Name Role Phone Lula Ruiz M.D. Primary Care Provider + Source Comments Patient records contain information from all sites at [facility]. For routine questions regarding patient records, call [phone] during business hours, M-F 8:00 AM - 5:00 PM Central Time. Record requests for emergency care only can be directed to [phone] at any time.[facility] Encounters Date Type Department Care Team Description 06/09/2024 Clinical Communication Department of Family Medicine, [facility], in [place], [place] [address] [phone] Cristel Price 06/08/2024 Refill Department of Family Medicine, [facility], in [place], [place] [address] [phone] Lula Ruiz M.D. Med Refill 06/08/2024 2:34 PM SLITTER CREASER SLOTTER OPERATOR - 06/08/2024 11:59 PM SLITTER CREASER SLOTTER OPERATOR Emergency [facility] [address] [place] [phone] Hernia Inguinal (Primary Dx) Discharge Disposition: Home or Self Care 06/03/2024 Refill Department of Family Medicine, [facility], in [place], [place] [address] [phone] Celeste Romero APRN C.N.P., D.N.P. Med Refill 06/01/2024 Refill Department of Family Medicine, [facility], in [address] [phone] Lula Ruiz M.D. Med Refill 05/31/2024 8:45 AM SLITTER CREASER SLOTTER OPERATOR Office Visit Department of Urology in [address] [phone] Jack Galvez M.D. 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 Preoperative Exam (Primary Dx) 05/11/2024 Refill Department of Family Medicine, [facility], in [address] [phone] Celeste Romero APRN C.N.P., D.N.P. Med Refill 04/28/2024 Refill Department of Family [facility], [facility], in [address] [phone] Dottie Pavon M.D. Med Refill 04/13/2024 4:19 PM SLITTER CREASER SLOTTER OPERATOR - 04/13/2024 11:59 PM SLITTER CREASER SLOTTER OPERATOR Hospital Encounter Department of Radiology in [address] [phone] Celeste Romero APRN, C.N.P., D.N.P. Pain Thumb Right Discharge Disposition: Home or Self Care 04/07/2024 Refill Department of Family Medicine, [facility], in [address] [phone] Lula Ruiz M.D. Med Refill 04/06/2024 Refill Department of Family Medicine, [facility], in [address] [phone] Celeste Romero APRN C.N.PTrent, D.N.P. Med Refill 03/31/2024 Refill Department of Family Medicine, [facility], in [address] [phone] Dottie Pavon M.D. Med Refill 03/24/2024 Refill Department of Family [facility], [facility], in [address] [phone] Lula Ruiz M.D. Med Refill 03/23/2024 3:30 PM SLITTER CREASER SLOTTER OPERATOR Comprehensive Visit Department of [facility], [facility], in [address] [phone] Celeste Romero APRN, C.N.P., D.N.P. Pain Thumb Right (Primary Dx); Gout; Abuse Tobacco Smoking; Malnutrition Severe Protein-Calorie (HCC); Hyperlipidemia; Hypertension Essential Primary 03/21/2024 12:47 PM SLITTER CREASER SLOTTER OPERATOR - 03/21/2024 11:59 PM SLITTER CREASER SLOTTER OPERATOR Hospital Encounter Department of Laboratory Medicine in [address] [phone] Lula Ruiz M.D. Hypertension Essential Primary; Malnutrition Severe Protein-Calorie (HCC); Gout; Hyperlipidemia; Screening Examination Diabetes Mellitus Discharge Disposition: Home or Self Care from Last 3 Months Allergies No known active allergies Medications * [...] by mouth daily. 90 capsule 3 05/31/19 025 Discontinued(Do se adjustment) tamsulosin (Flomax) 0.4 [...] (08/20/2022): Added automatically from request for surgery [id number] Pain Foot Right 02/22/2022 Gout 02/22/2022 Assessment & Plan (03/23/2024 4:25 PM SLITTER CREASER SLOTTER OPERATOR): Uric acid slightly above goal, however he [...] 02/02/2019 Assessment & Plan (03/23/2024 4:29 PM SLITTER CREASER SLOTTER OPERATOR): Reviewed labs today. Blood pressure overall is well controlled. Continue on lisinopril 20 mg daily and Lozol 2.5 mg daily. Hyperlipidemia Assessment & Plan (03/23/2024 4:26 PM SLITTER CREASER SLOTTER OPERATOR): Cholesterol levels well controlled. LDL at 79. Continue on rosuvastatin 10 mg daily. Chronic Obstructive Pulmonary Disease Abuse Tobacco Smoking Assessment & Plan (03/23/2024 4:28 PM SLITTER CREASER SLOTTER OPERATOR): Patient would like to try the nicotine patches again. Will send prescriptions for him to slowly taper due to long smoking history. Resolved Problems Problem Noted Date Diagnosed Date Resolved Date Follow Up Examination Postoperative Visit 09/17/2022 03/06/2023 Callus [place] 07/19/2021 08/21/2022 Need Vaccine Immunization Pneumococcal 07/19/2021 03/18/2022 Peritonitis Unspecified 06/22/2020 103 05/2021 Sepsis 06/13/2020 03/18/2022 Pain Postoperative 06/02/2020 3 Preoperative Exam 05/31/2020 03/18/2022 Malignant Neoplasm Of Colon 05/30/2020 07/03/2020 Overview (05/30/2020): Added automatically from request for surgery [id number] Immunizations Immunization Administration Dates Next Due RZV (SHINGRIX) 04/09/2020,01/06/2020 SARS-COV-2 (COVID-19) - MODERNA(Discontinued) 04/11/2021,08/28/2020,07/27/2020 Td, (Adult) Unspecified 10/29/2014 influenza vaccine quad (FLUZ ONE/FLUARIX) (6 months and older)(PF) 04/11/2021,06/02/2020 Social History Tobacco Use Types Packs/Day Years Used Date Smoking Tobacco: Every Day Cigarettes 0.8 25 Passive Smoke Exposure: Current Smokeless Tobacco: Never Tobacco Cessation:Ready to Q uit: Not Asked; Counseling Given: Not Answered Alcohol Use Standard Drinks/Week Comments Yes 30 (1 standard drink = 0.6 oz pu re alcohol) Daily caffeine [employer] Utilities Answer Date Recorded In the past 12 months has e [employer], gas, oil, or water [employer] threatened to shut off services in your [...] friends, or neighbors? Once a week 07/13/19 23 How often do you get togethe r with friends or relatives? Once a week 07/13/2022 How often do you attend chur ch or rastafari services? Never 07/13/2022 Do you belong to any clubs o r organizations such as quaker groups, unions, fraternal or athletic groups, or [...] Answer Date Recorded PHQ-2 Score 2 05/25/2024 [facility] of Occupat ional [facility] - Occupational Stress Questionnaire Answer Date Recorded [...] your living situation today? I have a [facility] place to live 07/22/2023 Education Answer [...] Comments Blood Pressure 102/65 05/31/2024 9:07 AM SLITTER CREASER SLOTTER OPERATOR Pulse 80 05/31/2024 9:07 AM SLITTER CREASER SLOTTER OPERATOR Temperature 37.3 C (99.1 F) 05/31/2024 9:07 AM SLITTER CREASER SLOTTER OPERATOR Respiratory Rate 26 05/24/2023 10:46 PM SLITTER CREASER SLOTTER OPERATOR Oxygen Saturation 100% 05/25/2023 12:15 AM SLITTER CREASER SLOTTER OPERATOR Inhaled Oxygen Concentration - - Weight 65.6 kg (144 lb 10 oz) 05/31/2024 9:07 AM SLITTER CREASER SLOTTER OPERATOR Height 177 cm (5' 9.69) 05/31/2024 9:07 AM SLITTER CREASER SLOTTER OPERATOR Body Mass Index 20.94 05/31/2024 9:07 AM SLITTER CREASER SLOTTER OPERATOR Plan of Treatment Upcoming Encounters Date Type Department Care Team (Late st Contact Info) Description 06/14/2024 9:30 AM SLITTER CREASER SLOTTER OPERATOR Comprehensive Visit Department of Orthopedic Surgery in [place], [place] [address] [place] [phone] Jake Rahman M.B.BTrentS. [address] [place] [phone] 06/21/2024 9:15 AM SLITTER CREASER SLOTTER OPERATOR Procedure visit Department of Urology in [place], [place] [address] [place] [address] Jack Galvez M.D. [address] [place] [phone] Medical Devices Implanted Type Area Airborne And Air Delivery Specialist Device Identifier Shelf Expiration Date Model / Serial / Lot Aug Lgs Intnl 9.0 - [id number] Implanted:Qty : 1 on 08/29/2022 by Ángel Pack M.D. at [facility] Hardware e.g. pins/screws/ rods Left: Neck Ethicon [id number] / / Mitchell [employer]hn Seprafilm 5x6 - [id number] Implanted:Qty : 1 on 06/01/2020 by Narayan Phan M.D. at [facility] Mesh or Patch Right: Abdomen Lewis 10/21/2022 [id number] / / [id number] Mitchell [employer] Seprafilm 5x6 - [id number] Implanted:Qty : 1 on 06/04/2020 by Estelle Berger M.D. at [facility] Mesh or Patch Lewis 11/01/2022 [id number] / / [id number] Procedures Procedure Name Priority Date/Time Associated Diagnosis Comments DX CHEST AP OR PA AND LATERAL 2 VIEWS RAD - Semiurgent (Fast; most ED patients; some inpatients) 06/08/2024 5:24 PM SLITTER CREASER SLOTTER OPERATOR CT ABDOMEN PELVIS WITH IV CONTRAST RAD - Semiurgent (Fast; most ED patients; some inpatients) 06/08/2024 5:23 PM SLITTER CREASER SLOTTER OPERATOR DX THUMB RIGHT RAD - Routine (most inpatients and all outpatients) 04/13/2024 4:41 PM SLITTER CREASER SLOTTER OPERATOR Pain Thumb Right HEMOGLOBIN A1C, B Routine 03/21/2024 12:58 PM SLITTER CREASER SLOTTER OPERATOR Screening Examination Diabetes Mellitus LIPID PANEL, S Routine 03/21/2024 12:58 PM SLITTER CREASER SLOTTER OPERATOR Hyperlipidemia URIC ACID, S/P Routine 03/21/2024 12:58 PM SLITTER CREASER SLOTTER OPERATOR Gout COMPREHENSIVE METABOLIC PANEL, S/P Routine 03/21/2024 12:58 PM SLITTER CREASER SLOTTER OPERATOR Hypertension Essential Primary Malnutrition Severe Protein-Calorie (HCC) COLONOSCOPY Routine 03/26/2022 8:31 AM SLITTER CREASER SLOTTER OPERATOR Blood In Stool HCV AB SCRN W/REFLEX TO HCV PCR, S Routine 12/31/2018 5:21 PM CDT Screening Test Laboratory from Last 3 Months or Most Recently Relevant to Health Maintenance Results * DX Chest AP or PA and Lateral 2 Views (06/08/2024 5:24 PM SLITTER CREASER SLOTTER OPERATOR) Anatomical Region Laterality Modality Chest, Thoracic RST LOS, Tho racic ARZ LOS, Thoracic FLA LOS N/A Digital Radiography Impressions 06/08/2024 5:49 PM SLITTER CREASER SLOTTER OPERATOR Comparison 03/13/2023. Normal heart size and cardiomediastinal silhouette. No focal consolidation, pleural effusions, or appreciable pneumothorax. Small nodular opacity within the right mid lung, unchanged since 06/05/2021 and may represent nipple shadow versus a small pulmonary nodule (likely benign given stability over time). Narrative 06/08/2024 5:49 PM SLITTER CREASER SLOTTER OPERATOR EXAM: DX CHEST AP OR PA AND [...] nodule (likely benign given stability over time). Radha River C.N.P. IMG DIAGNOSTIC IMAGI NG PROCEDURES Final Result * CT Abdomen Pelvis with IV Contrast (06/08/2024 5:23 PM SLITTER CREASER SLOTTER OPERATOR) Anatomical Region Laterality Modality Abdomen, Pelvis, Abdominal R ST LOS, Abdominal ARZ LOS, Abdominal FLA LOS N/A Computed Tomography 06/08/2024 5:21 PM SLITTER CREASER SLOTTER OPERATOR Impressions 06/08/2024 5:47 PM SLITTER CREASER SLOTTER OPERATOR 1. No ventral abdominal wall or significant inguinal hernias. 2. Mild nonspecific urinary bladder wall thickening versus underdistention, potentially on the basis of chronic outlet obstruction given prostatomegaly measuring 5.4 cm transverse. 3. Possible mild nonspecific enteritis. Narrative 06/08/2024 5:47 PM SLITTER CREASER SLOTTER OPERATOR EXAM: CT ABDOMEN PELVIS WITH IV CONTRAST [...] cm transverse. 3. Possible mild nonspecific enteritis. us Radha River C.NErnesto IMG CT PROCEDURES Fi nal Result * DX Thumb Right (04/13/2024 4:41 PM SLITTER CREASER SLOTTER OPERATOR) Anatomical Region Laterality Modality Upper Extremity, Fingers, Mu sculoskeletal RST LOS, Musculoskeletal ARZ LOS, Muskuloskeletal FLA LOS Right Digit al Radiography Impressions 04/13/2024 4:58 PM SLITTER CREASER SLOTTER OPERATOR Right thumb: Moderate chronic degenerative changes of the first CMC joint. Mild degenerative changes in the IP joint. Negative for acute fracture or dislocation. No cortical erosions. No radiopaque foreign bodies. Comparison, 03/13/2023. Narrative 04/13/2024 4:58 PM SLITTER CREASER SLOTTER OPERATOR EXAM: DX THUMB RIGHT Procedure Note Arslan Orozco M.B., Larry, MTed. - 04/13/2024 EXAM: DX THUMB RIGHT IMPRESSION: Right thumb: Moderate chronic degenerative changes of the first CMC joint.Mild degenerative changes in the IP joint. Negative for acute fracture ordislocation. No cortical erosions. No radiopaque foreign bodies.Comparison, 03/13/2023. Celsete Romero APRN, C.N.P., D.N.P. IMG DIAGNO STIC IMAGING PROCEDURES Final Result * Lipid Panel (03/21/2024 12:58 PM SLITTER CREASER SLOTTER OPERATOR) Triglycerides 102 mg/dL 03/22/2024 8:39 AM SLITTER CREASER SLOTTER OPERATOR OWAT Comment: ----REFERENCE VALUE---- Normal: <150 mg/dL Borderline High: 150-199 mg/dL High: 200-499 mg/dL Very High: > or =500 mg/dL Cholesterol, Total 155 mg/dL 2023 8:39 AM SLITTER CREASER SLOTTER OPERATOR OWAT Comment: ----REFERENCE VALUE---- Desirable: < 200 mg/dL Borderline High: 200 - 239 mg/dL High: > or = 240 mg/dL Cholesterol, LDL, Calculated 79 mg/dL 03/22/2024 8:39 AM SLITTER CREASER SLOTTER OPERATOR OWAT Comment: ----REFERENCE VALUE---- Desirable: <100 mg/dL Above Desirable: 100-129 mg/dL Borderline High: 130-159 mg/dL High: 160-189 mg/dL Very High: >=190 mg/dL ----ADDITIONAL INFORMATION---- LDL cholesterol calculated using the Schmidt/NIH equation. Cholesterol, HDL 57 >=40 mg/dL 03/22/20 8:39 AM SLITTER CREASER SLOTTER OPERATOR OWAT Cholesterol, Non-HDL, Calculated 98 mg/dL 03/22/2024 8:39 AM SLITTER CREASER SLOTTER OPERATOR OWAT Comment: ----REFERENCE VALUE---- Desirable: <130 mg/dL Above Desirable: 130-159 mg/dL Borderline High: 160-189 mg/dL High: 190-219 mg/dL Very High: > or =220 mg/dL Fasting (8 HR or more) Yes 03/21/2024 12:58 PM SLITTER CREASER SLOTTER OPERATOR OWAT Blood (Blood, Venous) 03/21/2024 12:58 PM SLITTER CREASER SLOTTER OPERATOR 03/21/2024 1:29 PM SLITTER CREASER SLOTTER OPERATOR us Lula Ruiz M.D. LAB BLOOD ADD-ON Final R esult Performing Organization Address City/[facility]/ZIP Co de Phone Number [facility] [address] [place] [address], [place] OWAT [facility] in [place] [address] [place] [address] * Uric Acid (03/21/2024 12:58 PM SLITTER CREASER SLOTTER OPERATOR) Pathologist [facility] Uric Acid, P 6.1 3.7 - 8.0 mg/dL 03/21/2024 7:25 PM SLITTER CREASER SLOTTER OPERATOR AUST Blood (Blood, Venous) 03/21/2024 12:58 PM SLITTER CREASER SLOTTER OPERATOR 03/21/2024 7:12 PM SLITTER CREASER SLOTTER OPERATOR us Lula Ruiz M.D. LAB BLOOD ADD-ON Final R esult [facility] [address] [place] [address], [place] AUST [facility] - [facility] [address] [place] [address] * Hemoglobin A1c (03/21/2024 12:58 PM SLITTER CREASER SLOTTER OPERATOR) Pathologist [facility] Hemoglobin A1c, B 5.5 4.2 - 5.6 % 03/22/2024 8:43 AM SLITTER CREASER SLOTTER OPERATOR OWAT Blood (Blood, Venous) 03/21/2024 12:58 PM SLITTER CREASER SLOTTER OPERATOR 03/21/2024 1:29 PM SLITTER CREASER SLOTTER OPERATOR us Lula Ruiz M.D. LAB BLOOD ADD-ON Final R esult [facility] [address] [place] [address], [place] OWAT [facility] [place] [address] [place] [address] * (ABNORMAL) Comprehensive Metabolic Panel (03/21/2024 12:58 PM SLITTER CREASER SLOTTER OPERATOR) Potassium, P 3.9 3.6 - 5.2 mmol/L 03/22/2024 8:39 AM SLITTER CREASER SLOTTER OPERATOR OWAT Sodium, P 137 135 - 145 mmol/L 03/22/2024 8:39 AM SLITTER CREASER SLOTTER OPERATOR OWAT Chloride, P 96(L) 98 - 107 mmol/L 03/22/2024 8:39 AM SLITTER CREASER SLOTTER OPERATOR OWAT Bicarbonate, P 28 22 - 29 mmol/L 03/22/2024 8:39 AM SLITTER CREASER SLOTTER OPERATOR OWAT Anion Gap, P 13 7 - 15 03/22/2024 8:39 AM SLITTER CREASER SLOTTER OPERATOR OWAT BUN (Blood Urea Nitrogen), P 11 8 - 24 mg/dL 03/22/2024 8:39 AM SLITTER CREASER SLOTTER OPERATOR OWAT Creatinine 0.83 0.74 - 1.35 mg/dL 03/22/2024 8:39 AM SLITTER CREASER SLOTTER OPERATOR OWAT Estimated GFR (eGFR) >90 >=60 mL/min/BS A 03/22/2024 8:39 AM SLITTER CREASER SLOTTER OPERATOR OWAT Comment: Estimated GFR calculated using the 2020 CKD_EPI creatinine equation. Calcium, Total, P 9.6 8.8 - 10.2 mg/dL 03/22/2024 8:39 AM SLITTER CREASER SLOTTER OPERATOR OWAT Glucose, P 89 70 - 140 mg/dL 03/22/2024 8:39 AM SLITTER CREASER SLOTTER OPERATOR OWAT Protein, Total, P 7.5 6.3 - 7.9 g/dL 03/22/2024 8:39 AM SLITTER CREASER SLOTTER OPERATOR OWAT Albumin, P 4.7 3.5 - 5.0 g/dL 03/22/2024 8:39 AM SLITTER CREASER SLOTTER OPERATOR OWAT Aspartate Aminotransferase (AST), P 28 8 - 48 U/L 03/22/2024 8:39 AM SLITTER CREASER SLOTTER OPERATOR OWAT Alkaline Phosphatase, P 118 40 - 129 U/L 03/22/2024 8:39 AM SLITTER CREASER SLOTTER OPERATOR OWAT Alanine Aminotransferase (ALT), P 22 7 - 55 U/L 03/22/2024 8:39 AM SLITTER CREASER SLOTTER OPERATOR OWAT Bilirubin, Total, P 0.4 0.0 - 1.2 mg/dL 03/22/2024 8:39 AM SLITTER CREASER SLOTTER OPERATOR OWAT Blood (Blood, Venous) 03/21/2024 12:58 PM SLITTER CREASER SLOTTER OPERATOR 03/21/2024 1:29 PM SLITTER CREASER SLOTTER OPERATOR us Lula Ruiz M.D. LAB BLOOD ADD-ON Final R esult Performing Organization Address City/[facility]/ZIP Co de Phone Number [facility] [address] [place] [address], [facility] OWAT [facility] [place] [address] [place] [address] * HCV Ab Scrn w/Reflex to HCV PCR, Serum (12/31/2018 5:21 PM CDT) HCV Ab Screen, S Negative Negative 01/01/2019 8:23 AM CDT Comment:Egimwu-bi-tvverm rat io is <1.00. Blood (Blood, Venous) 12/31/2018 5:21 PM CDT 01/01/2019 7:00 AM CDT us Luke Baca M.D. LAB MICROBIOLOGY - BLOOD ORDERA BLES Final Result [facility] [address] [place] [address] from Last 3 Months or Most Recently Relevant to Health Maintenance Insurance [facility] BLUE SHIELD Advance Directives For more information, please contact: [phone] * Full Code (Latest Code Status on [...] Answer Comments Full Code: Discussed Care Teams Cattle Rancher Relationship Specialty Start Date End Date Lula Ruiz M.D. [address] [place] [phone] PCP - General 10/31/23
--- OUTSIDE RECORDS SUMMARY | 2024-06-12 18:15 | XMS_ITS | Encounter Summary ---
Author Organization [facility] Address [address] [place] [address] Care Team Providers Care Information Systems Director Name Role Phone Lula Ruiz M.D. Primary Care Provider + Encounter Details Date Type Department Care Team (Late st Contact Info) Description 06/09/2024 Clinical Communication Department of Family Medicine, [facility], in [place], [place] [address] [place] [phone] Cristel Price Social History Tobacco Use Types Packs/Day Years Used Date Smoking Tobacco: Every Day Cigarettes 0.8 25 Passive Smoke Exposure: Current Smokeless Tobacco: Never Alcohol Use Standard Drinks/Week Comments Yes 30 (1 standard drink = 0.6 oz pu re alcohol) Daily caffeine [facility] Utilities Answer Date Recorded In the past 12 months has [facility] [employer], [employer], oil, or water [employer] threatened to shut off services in your [...] often do you attend chur ch or yarsanism services? Never 07/13/2022 Do you belong to any clubs o r organizations such as oriental orthodox groups, unions, fraternal or athletic groups, or [...] Answer Date Recorded PHQ-2 Score 2 05/25/2024 [facility] of Occupat ional Health - Occupational Stress [...] your living situation today? I have a [facility] place to live 07/22/2023 Education Answer Date [...] on file documented as of this encounter Plan of Treatment Upcoming Encounters Date Type Department Care Team (Late st Contact Info) Description 06/14/2024 9:30 AM STATION CLEANING PORTER Comprehensive Visit Department of Orthopedic Surgery in [place], [place] [address] [place] [address] Jake Rahman M.B.B.S. [address] [place] [address] 06/21/2024 9:15 AM STATION CLEANING PORTER Procedure visit Department of Urology in [place], [place] [address] [place] [phone] Jack Galvez M.D. [address] [place] [address] documented as of this encounter Visit Diagnoses Not on filedocumented in this encounter Additional Health Concerns Assessment Noted Time PHQ-9 Depression Total Score: 9 07/19/19 23 11:57 AM STATION CLEANING PORTER documented as of this encounter Care Teams Information Systems Director Relationship Specialty Start Date End Date Lula Ruiz M.D. [address] [phone] PCP - General 10/31/23 documented as of this encounter
--- OUTSIDE RECORDS SUMMARY | 2024-06-12 18:15 | XMS_ITS | Encounter Summary ---
Author Organization [facility] Address [address] [place] [address] Care Team Providers Care Director [employer] Name Role Phone Lula Ruiz M.D. Primary Care Provider + Reason for Visit * Reason Comments Med Refill Encounter Details Date Type Department Care Team (Late st Contact Info) Description 06/08/2024 Refill Department of Family Medicine, [facility], in [place], [place] [address] [place] [phone] Lula Ruiz M.D. [address] [place] [phone] Med Refill Social History Tobacco Use Types Packs/Day Years Used Date Smoking Tobacco: Every Day Cigarettes 0.8 25 Passive Smoke Exposure: Current Smokeless Tobacco: Never Alcohol Use Standard Drinks/Week Comments Yes 30 (1 standard drink = 0.6 oz pu re alcohol) Daily caffeine [facility] Utilities Answer Date Recorded In the past 12 months has [facility] [employer], gas, oil, or water [employer] threatened to shut off services in your [...] often do you attend chur ch or spiritism services? Never 07/13/2022 Do you belong to any clubs o r organizations such as protestant groups, unions, fraternal or athletic groups, or [...] Answer Date Recorded PHQ-2 Score 2 05/25/2024 [facility] - Occupational Stress Questionnaire Answer Date [...] your living situation today? I have a [facility] place to live 07/22/2023 Education Answer Date [...] st Contact Info) Description 06/14/2024 9:30 AM CUSHION ASSEMBLER Comprehensive Visit Department of Orthopedic Surgery in [place], [place] [address] [place] [address] Jake Rahman M.B.B.S. [address] [place] [address] 06/21/2024 9:15 AM CUSHION ASSEMBLER Procedure visit Department of Urology in [place], [place] [address] [place] [phone] Jack Galvez M.D. [address] [place] [phone] documented as of this encounter Visit Diagnoses Not on filedocumented in this encounter Additional Health Concerns Assessment Noted Time PHQ-9 Depression Total Score: 9 07/19/19 23 11:57 AM CUSHION ASSEMBLER documented as of this encounter Care Teams Director [employer] Relationship Specialty Start Date End Date Lula Ruiz M.D. [address] [phone] PCP - General 10/31/23 documented as of this encounter
--- OUTSIDE RECORDS SUMMARY | 2024-06-12 18:15 | XMS_ITS ---
Author Organization [facility] Address [address] [place] [address] Care Team Providers Care Strap Cutting Machine Operator Name Role Phone Unavailable Unavailable Unavailable Surgery Details Not on file Complications Check Surgery Details section. Procedure Estimated Blood Loss Check Surgery Details section. Procedure Findings Check Surgery Details section. Procedure Specimens Taken Check Surgery Details section.
--- OUTSIDE RECORDS SUMMARY | 2024-06-12 18:15 | XMS_ITS | Clinical Summary ---
Author Organization [employer] [facility] Address [place], [place] [address] Care Team Providers Care Candy Waffle Assembler Name Role Phone Pcp, No Primary Care Provider Unavailabl e Allergies No known active allergies Medications lisinopril (PRINIVIL; ZESTRIL) 20 mg tablet Take 20 mg by mouth once daily. In the AM Active amLODIPine (NORVASC) 5 mg tablet Take 5 mg by mouth once daily. Active Multivits,Ca,Mine lymf-Kztl-LK 9 mg iron-400 mcg tablet Take 1 tablet by mouth. 1 Active albuterol HFA (PRO-AIR; VENTOLIN; PROVENTIL) 90 mcg/actuation inhalerIndication s:Chronic obstructive pulmonary disease, unspecified COPD type (HC) Inhale 2 Puffs by mouth 4 times daily if needed. 1 Each 1 Active acetaminophen (TYLENOL EXTRA STRGTH) 500 mg tablet Take 500 mg by mouth every 6 hours if needed. Active allopurinoL (ZYLOPRIM) 100 mg tablet Take 100 mg by mouth once daily. 3 Active atorvastatin (LIPITOR) 10 mg tablet Take 10 mg by mouth at bedtime. 4 Active diclofenac topical (VOLTAREN) 1 % gel Apply 2 g topically to affected area(s) 3 times daily if needed. 2 Active indapamide (LOZOL) 2.5 mg tablet Take 2.5 mg by mouth once daily. 3 Active nicotine 21 mg/24 hr (NICODERM; HABITROL) 21 mg/24 hr patch Apply 1 Patch on dry, clean, hairless skin. 2 Active ibuprofen (ADVIL; MOTRIN) 600 mg tabletIndications :CMC DJD(carpometacarp al degenerative joint disease), localized primary, left Take 1 Tablet (600 mg) by mouth every 6 hours if needed for Pain. Maximum of 3200 mg in 24 hours. 30 Tablet 4 Active Active Problems Problem Noted Date Diagnosed Date CMC DJD(carpometacarpal dege nerative joint disease), localized primary, left 06/17/2023 Diverticulitis of colon with perforation 021 Pulmonary emphysema 05/26/2020 Essential hypertension 05/26/2020 Person under investigation for COVID-19 05/26/19 21 History of colon polyps 05/26/2020 Overview (05/26/2020): Colonoscopy Jan 2019 Abnormal laboratory test 05/26/2020 Overview (05/26/2020): Elevated D Dimer Essential hypertension 02/02/2019 Encounters Date Type Department Care Team Description 06/11/2024 Travel 06/08/2024 3:22 PM OFFICE SUPPORT CLERK - 06/08/2024 6:[address] [facility] Emergency [facility] [address] [place] [address] Radha River, KIERA Inguinal hernia without obstruction or gangrene, recurrence not specified, unspecified laterality (Primary Dx); Cough, unspecified type Discharge Disposition: Home Self Care 06/08/2024 Travel from Last 3 Months Family History Medical History Relation Name Comments Good Health Brother Hypertension Father Hypertension Mother Good Health Sister Relation Name Status Comments Brother Father Mother Sister Social History Tobacco Use Types Packs/Day Years Used Date Smoking Tobacco: Every Day Cigarettes Smokeless Tobacco: Never Tobacco Cessation:Ready to Q uit: No; Counseling Given: Yes Comments:started at age 17 yrs Alcohol Use Standard Drinks/Week Comments Yes 4 (1 standard drink = 0.6 oz pur e alcohol) Sex and Gender Information Value Date Recorded Sex Assigned at Not on file Legal Sex Male 11:53 AM CDT Gender Identity Not on file Sexual Orientation Not on file Obstetrics History Last Filed Vital Signs Vital Sign Reading Time Taken Comments Blood Pressure 128/65 06/08/2024 3:15 PM OFFICE SUPPORT CLERK Pulse 64 06/08/2024 3:15 PM OFFICE SUPPORT CLERK Temperature 36.5 C (97.7 F) 06/08/2024 3:15 PM OFFICE SUPPORT CLERK Respiratory Rate 18 06/08/2024 3:15 PM OFFICE SUPPORT CLERK Oxygen Saturation 100% 06/08/2024 3:15 PM OFFICE SUPPORT CLERK Inhaled Oxygen Concentration - - Weight 64.9 kg (143 lb) 06/08/2024 3:11 PM OFFICE SUPPORT CLERK Height 175.3 cm (5' 9) 06/08/2024 3:11 PM OFFICE SUPPORT CLERK Body Mass Index 21.12 06/08/2024 3:11 PM OFFICE SUPPORT CLERK Plan of Treatment Upcoming Encounters Date Type Department Care Team (Late st Contact Info) Description 06/15/2024 9:30 AM OFFICE SUPPORT CLERK Office Visit [address] [phone] Maurisio Conner MD [address] [place], [place] [phone] Health Maintenance Due Date Last Done Comments Tdap 1971 Depression screening for age 12+ 1972 HIV for age 15-65 1975 BMI (ht and wt on same day) for age 18+ 1978 Hepatitis C screening for age 18-79 1978 Tetanus booster 1980 Lipids for age 45-75 2005 Pneumococcal series for age 50+ (1 of 1 - PCV) 2010 Zoster (shingles) series for age 50+ (1 of 2) 2010 COVID-19 vaccine series (2023- season) 2024 04/11/2021, 08/28/2020, 07/27/2020 Influenza for age 50-64 01/18/2024 Colonoscopy through age 75 01/20/2029 01/20/2019 RSV vaccine for adults or pr egnancy (1 - 1-dose 75+ series) 2035 Medical Devices Implanted Type Area Obstetric Assistant Device Identifier Shelf Expiration Date Model / Serial / Lot Ancr Sut Mini Tightrope Kit - [id number] Implanted:Qty: 1 on 06/19/2023 by Celio Alanis MD at [facility] Left: Wrist [employer] 03/18/2028 [id number] / / [id number] Procedures Procedure Name Priority Date/Time Associated Diagnosis Comments XR CHEST 2 VIEWS PA AND LATERAL STAT 06/08/2024 5:29 PM OFF[address] SU[address] CL[address] CT ABDOMEN PELVIS W STAT 06/08/2024 5 :24 PM OFFICE SUPPORT CLERK UA W/ SEDIMENT EXAM REFLEXED PER CRITERIA STAT 06/08/2024 4:38 PM OFFICE SUPPORT CLERK CBC WITH AUTO DIFFERENTIAL STAT 06/08/2024 4:18 PM OFFICE SUPPORT CLERK C-REACTIVE PROTEIN STAT 06/08/2024 4: 18 PM OFFICE SUPPORT CLERK BASIC METABOLIC PANEL STAT 06/08/2024 4:18 PM OFFICE SUPPORT CLERK CBC WITH AUTO DIFFERENTIAL STAT 06/08/2024 4:18 PM OFFICE SUPPORT CLERK LACTATE VENOUS STAT 06/08/2024 4:18 PM OFFICE SUPPORT CLERK COLONOSCOPY 01/20/2019 8:17 AM CDT from Last 3 Months or Most Recently Relevant to Health Maintenance Results * XR CHEST 2 VIEWS PA AND LATERAL (06/08/2024 5:29 PM OFFICE SUPPORT CLERK) Anatomical Region Laterality Modality CHEST, THORAX, Lung, HEART Digit al Radiography Radha River NP GENERAL IMAGING Fin al Result * CT Abdomen Pelvis w IV (Oral Contrast YES) (06/08/2024 5:24 PM OFFICE SUPPORT CLERK) Anatomical Region Laterality Modality Abdomen, Pelvis, AORTA, LIVER, SPLEEN Computed Tomography us Radha River BIGHT MAKER CT Fin al Result * UA W/ SEDIMENT EXAM REFLEXED PER CRITERIA (06/08/2024 4:38 PM OFFICE SUPPORT CLERK) COLOR Yellow Yellow Color 06/08/2024 4:[address] [facility] CLARITY Clear Clear Clarity 06/08/2024 4:[address] [facility] SPECIFIC GRAVITY,URINE 1.010 1.010, 1.015, 1.020, 1.025 06/08/2024 4:[address] [facility] PH,URINE 7.0 6.0, 7.0, 8.0, 5.5, 6.5, 7.5, 8.5 06/08/2024 4:[address] [facility] UROBILINOGEN,Q UALITATIVE Normal Normal EU/dl 06/08/2024 4:[address] [facility] PROTEIN, URINE Negative Negative mg/dL 06/08/2024 4:[address] [facility] GLUCOSE, URINE Negative Negative mg/dL 06/08/2024 4:[address] [facility] KETONES,URINE Negative Negative mg/dL 06/08/2024 4:[address] [facility] BILIRUBIN,URIN E Negative Negative 06/08/2024 4:[address] [facility] OCCULT BLOOD,URINE Negative Negative 06/08/2024 4:[address] [facility] NITRITE Negative Negative 06/08/2024 4:[address] [facility] LEUKOCYTE ESTERASE Negative Negative 06/08/2024 4:[address] [facility] Urine URINE SPECIMEN / Unknown Non-Blood / Unknown 06/08/2024 4:38 PM OFFICE SUPPORT CLERK 06/08/2024 4:[address] [facility] us Radha River BIGHT MAKER URINE Fin al Result [facility] [address] [phone] * CBC WITH AUTO DIFFERENTIAL (06/08/2024 4:[address] [facility]) WHITE BLOOD COUNT 9.5 4.5 - 11.0 thou/cu mm 06/08/2024 4:[address] [facility] RED BLOOD COUNT 4.40 4.30 - 5.90 mil/cu mm 06/08/2024 4:[address] [facility] HEMOGLOBIN 13.7 13.5 - 17.5 g/dL 06/08/2024 4:[address] [facility] HEMATOCRIT 40.3 37.0 - 53.0 % 06/08/2024 4:[address] [facility] MCV 92 80 - 100 fL 06/08/2024 4:[address] [facility] MCH 31.1 26.0 - 34.0 pg 06/08/2024 4:[address] [facility] MCHC 34.0 32.0 - 36.0 g/dL 06/08/2024 4:[address] [facility] RDW 14.4 11.5 - 15.5 % 06/08/2024 4:[address] [facility] PLATELET COUNT 319 140 - 440 thou/cu mm 06/08/2024 4:[address] [facility] MPV 9.2 6.5 - 11.0 fL 06/08/2024 4:[address] [facility] % NEUT 71.5 % 06/08/2024 4:[address] [facility] % LYMPH 18.6 % 06/08/2024 4:[address] [facility] % MONO 7.5 % 06/08/2024 4:[address] [facility] % EOS 2.1 % 06/08/2024 4:[address] [facility] % BASO 0.3 % 06/08/2024 4:[address] [facility] ABSOLUTE NEUTROPHILS 6.8 1.7 - 7.0 thou/cu mm 06/08/2024 4:[address] [facility] ABSOLUTE LYMPHOCYTES 1.8 0.9 - 2.9 thou/cu mm 06/08/2024 4:[address] [facility] ABSOLUTE MONOCYTES 0.7 <0.9 thou/cu mm 06/08/2024 4:[address] [facility] ABSOLUTE EOSINOPHILS 0.2 <0.5 thou/cu mm 06/08/2024 4:[address] [facility] ABSOLUTE BASOPHILS 0.0 <0.3 thou/cu mm 06/08/2024 4:24 PM OFFICE SUPPORT CLERK [facility] Blood BLOOD SPECIMEN / Unknown IV Start / Unknown 06/08/2024 4:18 PM OFFICE SUPPORT CLERK 06/08/2024 4:19 PM OFFICE SUPPORT CLERK us Radha River BIGHT MAKER HEMATOLOGY Fin al Result Performing Organization Address [facility] Co de Phone Number [facility] [address] [phone] * LACTATE VENOUS (06/08/2024 4:18 PM OFFICE SUPPORT CLERK) LACTATE,VENOUS 1.1 0.5 - 2.0 mmol/L 06/08/2024 4:42 PM OFFICE SUPPORT CLERK [facility] Blood BLOOD SPECIMEN / Unknown IV Start / Unknown 06/08/2024 4:18 PM OFFICE SUPPORT CLERK 06/08/2024 4:19 PM OFFICE SUPPORT CLERK us Radha River NP CHEMISTRY Fin al Result Performing Organization Address [facility] Co de Phone Number [facility] [address] [phone] * (ABNORMAL) C-REACTIVE PROTEIN (06/08/2024 4:18 PM OFFICE SUPPORT CLERK) C-REACTIVE PROTEIN 1.6(H) <0.5 mg/dL 06/08/2024 4:43 PM OFFICE SUPPORT CLERK [facility] Blood BLOOD SPECIMEN / Unknown IV Start / Unknown 06/08/2024 4:18 PM OFFICE SUPPORT CLERK 06/08/2024 4:19 PM OFFICE SUPPORT CLERK us Radha River NP CHEMISTRY Fin al Result Performing Organization Address [facility] Co de Phone Number [facility] [address] [phone] * (ABNORMAL) BASIC METABOLIC PANEL (06/08/2024 4:18 PM OFFICE SUPPORT CLERK) SODIUM 137 136 - 145 mmol/L 06/08/2024 4:43 PM OFFICE SUPPORT CLERK [facility] POTASSIUM 4.0 3.5 - 5.1 mmol/L 06/08/2024 4:[address] [facility] CHLORIDE 97(L) 98 - 107 mmol/L 06/08/2024 4:[address] [facility] CO2,TOTAL 29 22 - 29 mmol/L 06/08/2024 4:[address] [facility] ANION GAP 11 5 - 18 06/08/2024 4:[address] [facility] GLUCOSE 90 70 - 99 mg/dL 06/08/2024 4:[address] [facility] CALCIUM 9.2 8.8 - 10.4 mg/dL 06/08/2024 4:[address] [facility] Comment: Reference ranges for this test were updated on 03/23/2024 to reflect our healthy population more accurately. Reference range changes are not retroactively applied to results, but previous results using the same methodology can be interpreted in the context of the new reference range. BUN 8 8 - 23 mg/dL 06/08/2024 4:[address] [facility] CREATININE 0.76 0.70 - 1.20 mg/dL 06/08/2024 4:[address] [facility] BUN/CREAT RATIO 11 10 - 20 4:[address] [facility] eGFR >90 >90 mL/min/1.7 3m2 06/08/2024 4:[address] [facility] Comment:As of 2021, eG FR is calculated by the CKD-EPI creatinine equation without race adjustment. eGFR can be influenced by muscle mass, exercise, and diet. The reported eGFR is an estimation only and is only applicable if the renal function is stable. Blood BLOOD SPECIMEN / Unknown IV Start / Unknown 06/08/2024 4:18 PM OFFICE SUPPORT CLERK 06/08/2024 4:[address] [facility] us Radha River BIGHT MAKER CHEMISTRY Fin al Result [facility] [address] [phone] * COLONOSCOPY (01/20/2019 8:17 AM CDT) 01/20/2019 8:17 AM CDT Narrative Transcriptions Alejo Prado MD - 01/20/2019 9:12 AM CDT Patient Name: Vahid Young Procedure Date: 01/20/2019 Gender: Male Date of : 1960 Admit Type: Ambulatory Procedure: Colonoscopy Proceduralist: [facility], Trevon Wilcox, Medical Student (Dredge Pump Operator) Referring MD: Luke Baca Indications/Pre-Op Diagnosis: Weight loss Medications: Propofol per Anesthesia Procedure Description: The procedure, indications, potential complications, (bleeding, perforation, infection, adverse medication reaction, missed lesionsor polyps) and alternatives available were explained to the patient, who appeared to understand and indicated this. Opportunity for questionswas provided and informed consent obtained. The colonoscope was passed through the anus and advanced to theterminal ileum, with identification of the appendiceal orifice and IC valve.The colonoscopy was performed without difficulty. The patient toleratedthe procedure well. The quality of the bowel preparation was evaluatedusing the BBPS ([place] Bowel Preparation Scale) with scores of: Right Colon= 3, Transverse Colon = 3 and Left Colon = 3 (entire mucosa seen wellwith no residual staining, small fragments of stool or opaque liquid). The total BBPS score equals 9. Complications: No immediate complications. Estimated Blood Loss & Specimen: Estimated blood loss: none. Specimen collected: Yes and sent to Laboratory Findings: The perianal and digital rectal examinations were normal. A 12 mm polyp was found in the cecum. The polyp was sessile. Thepolyp was removed with a cold snare. Resection and retrieval were complete.To prevent bleeding post-intervention, one hemostatic clip wassuccessfully placed. A medium polyp was found in the entire colon. The polyp was sessile.The polyp was removed with a cold snare. Resection and retrieval were complete. A few sessile polyps were found in the entire colon. The polyps were small in size. These polyps were removed with a cold biopsy forceps. Resection and retrieval were complete. The terminal ileum appeared normal. Impressions/Post-Op Diagnosis: - One 12 mm polyp in the cecum, removed with a cold snare. Resectedand retrieved. Clip was placed. - One medium polyp in the entire colon, removed with a cold snare. Resected and retrieved. - A few small polyps in the entire colon, removed with a cold biopsy forceps. Resected and retrieved. - The examined portion of the ileum was normal. Recommendation: - Telephone my office for pathology results in 1 week. Moderate Sedation: Moderate (conscious) sedation was personally administered by an anesthesia professional. The following parameters were monitored:oxygen saturation, heart rate, blood pressure, and response to care. Melvin Prado, 01/20/2019 9:12:11 AM This report has been signed electronically. Note Initiated On: 01/20/2019 8:17 AM Procedure Code(s): --- Professional --- 23374, Colonoscopy, flexible; with removal of tumor(s), polyp(s), or other lesion(s) by snare technique 10628, 59, Colonoscopy, flexible; with biopsy, single or multiple CPT copyright 2018 [employer]. All rights reserved. The codes documented in this report are preliminary and upon cam maker reviewmay be revised to meet current compliance requirements. Alejo Prado MD PROCEDURE ORD Final Resul t from Last 3 Months or Most Recently Relevant to Health Maintenance Insurance [facility] Advance Directives * Full Code (Latest Code Status on File) Date Activated Date Inactivated Comments 06/19/2023 6:03 AM 06/19/2023 12:39 PM Question Answer Comments Code Status Discussion: Not Discussed * Full Code Date Activated Date Inactivated Comments 07/10/2020 8:44 AM 07/10/2020 8:28 PM Question Answer Comments Code Status Discussion: Not Discussed * Full Code Date Activated Date Inactivated Comments 05/26/2020 8:05 PM 05/28/2020 1:37 PM Question Answer Comments Code Status Discussion: Not Discussed * Full Code Date Activated Date Inactivated Comments 01/20/2019 6:45 AM 01/20/2019 12:14 PM Care Teams Candy Waffle Assembler Relationship Specialty Start Date End Date Pcp, No . PCP - General 06/08/24
--- OUTSIDE RECORDS SUMMARY | 2024-06-12 18:16 | XMS_ITS | Encounter Summary ---
Author Organization [facility] Address [address] [place] [id number] Care Team Providers Care Dental Prosthetist Name Role Phone Lula Ruiz M.D. Primary Care Provider + Reason for Visit * Reason Comments Med Refill Encounter Details Date Type Department Care Team (Late st Contact Info) Description 06/03/2024 Refill Department of Family Medicine, [facility], in [place], [place] [address] [phone] Celeste Romero APRN, C.N.P., D.N.P. [address] [phone] Med Refill Social History Tobacco Use Types Packs/Day Years Used Date Smoking Tobacco: Every Day Cigarettes 0.8 25 Passive Smoke Exposure: Current Smokeless Tobacco: Never Alcohol Use Standard Drinks/Week Comments Yes 2 (1 standard drink = 0.6 oz pur e alcohol) Daily caffeine [facility] Utilities Answer Date Recorded In the past 12 months has [employer], gas, oil, or water company threatened to shut off services in your [...] often do you attend chur ch or christian services? Never 07/13/2022 Do you belong to any clubs o r organizations such as yazdanism groups, unions, fraternal or athletic groups, or [...] Answer Date Recorded PHQ-2 Score 2 05/25/2024 [facility] [place] of Occupat ional Health - Occupational Stress [...] your living situation today? I have a [facility] place to live 07/22/2023 Education Answer [...] st Contact Info) Description 06/14/2024 9:30 AM GREENHOUSE SPECIALIST Comprehensive Visit Department of Orthopedic Surgery in [place], [place] [address] [place] [address] Jake Rahman M.B.BTrentS. [address] [place] [address] 06/21/2024 9:15 AM GREENHOUSE SPECIALIST Procedure visit Department of Urology in [place], [place] [address] [place] [phone] Jack Galvez M.D. [address] [place] [phone] documented as of this encounter Visit Diagnoses Diagnosis Pain Thumb Right documented in this encounter Additional Health Concerns Assessment Noted Time PHQ-9 Depression Total Score: 9 07/19/19 23 11:57 AM GREENHOUSE SPECIALIST documented as of this encounter Care Teams Dental Prosthetist Relationship Specialty Start Date End Date Lula Ruiz M.D. [address] [place] [phone] PCP - General 10/31/23 documented as of this encounter
--- OUTSIDE RECORDS SUMMARY | 2024-06-12 18:16 | XMS_ITS | Encounter Summary ---
Author Organization [facility] Address [address] [place] [address] Care Team Providers Care Horse Wrangler Name Role Phone Lula Ruiz M.D. Primary Care Provider + Reason for Visit * Reason Comments Pre-op Exam Eye surgery - left e ye 06/08, right 06/15 * Appointment Request (Routine) - Closed Specialty Diagnoses / Procedures Referred By Hina dillon Referred To Contact Family Medicine Referral ID Status Reason Start Date Expiration Date Visits Re quested Visits Authorized [id number] Closed 04/29/2024 04/29/2025 1 1 Encounter Details Date Type Department Care Team (Late st Contact Info) Description 05/31/2024 9:30 AM SAP HANA ARCHITECT Office Visit Department of Family Medicine, [facility], in [place], [place] [address] [phone] Trish Cardoso, ROSA, C.N.P. [address] [phone] Preoperative Exam (Primary Dx) Social History Tobacco Use Types Packs/Day Years Used Date Smoking Tobacco: Every Day Cigarettes 0.8 25 Passive Smoke Exposure: Current Smokeless Tobacco: Never Tobacco Cessation:Ready to Q uit: Not Asked; Counseling Given: Not Answered Alcohol Use Standard Drinks/Week Comments Yes 2 (1 standard drink = 0.6 oz pur e alcohol) Daily caffeine C Utilities Answer Date Recorded In the past 12 months has [employer], gas, oil, or water [employer] threatened to shut off services in your [...] often do you attend chur ch or hindu services? Never 07/13/2022 Do you belong to [...] Answer Date Recorded PHQ-2 Score 2 05/25/2024 [facility] - Occupational Stress [...] your living situation today? I have a [facility] place to live 07/22/2023 Education Answer [...] on file documented as of this encounter Last Filed Vital Signs Vital Sign Reading Time Taken Comments Blood Pressure 102/65 05/31/2024 9:07 AM SAP HANA ARCHITECT Pulse 80 05/31/2024 9:07 AM SAP HANA ARCHITECT Temperature 37.3 C (99.1 F) 05/31/2024 9:07 AM SAP HANA ARCHITECT Respiratory Rate - - Oxygen Saturation - - Inhaled Oxygen Concentration - - Weight 65.6 kg (144 lb 10 oz) 05/31/2024 9:07 AM SAP HANA ARCHITECT Height 177 cm (5' 9.69) 05/31/2024 9:07 AM SAP HANA ARCHITECT Body Mass Index 20.94 05/31/2024 9:07 AM SAP HANA ARCHITECT documented in this encounter H&P Notes * Trish Cardoso, ROSA, C.N.P. - 05/31/2024 9:30 AM CST SUBJECTIVE CHIEF COMPLAINT/REASON FOR CONSULT Chief Complaint Patient presents with Pre-op Exam Eye surgery - left eye 06/08, right 06/15 HISTORY OF PRESENT ILLNESS Vahid Young is a 64 y.o. male who presents today for a pre-operative consultation at the request [facility] who plans on performing Cataract surgery on the following date: 06/08/24 left eye and 06/15/[address] [facility]. Based on information from the patient, the surgery has minimal risk. Procedure is Low Risk (cardiac risk >1%): Superficial procedures, endoscopy, cataracts, breast surgery. RISK STRATIFICATION Functional Status: Functional Class I: Able to perform >7 METS. REVISED [HARRIS] CARDIAC RISK INDEX (RCRI): History of Ischemic Heart Disease: no (History of myocardial infarction, history of positive exercise test, current complaint of chest pain consistent with myocardial ischemia, use of nitrate therapy, or ECG with pathological Q waves). (Do not count prior coronary revascularization procedure unless one of the other criteria for ischemic heart disease is present). History of Heart Failure: no. (History of congestive heart failure, pulmonary edema, paroxysmal nocturnal dyspnea, bilateral rales, S3 gallop, or chest x-ray with pulmonary vascular redistribution). History of Cerebrovascular Disease (stroke or transient ischemic attack): no. Diabetes Requiring Perioperative Insulin Use: no. Chronic Kidney Disease (stage 3 or creatinine >2.0): no. High-risk Surgery Type: no. (e.g., suprainguinal vascular surgery, intraperitoneal surgery, or intrathoracic surgery). RCRI Score = 0. RCRI ESTIMATED RISK OF GIOVANI-OPERATIVE CARDIAC , NON-FATAL VA, OR NON-FATAL CARDIAC ARREST: 0 Predictors (0.4% risk of major cardiac event). MEMPHIS ABCDEFGHINO CHECKLIST: A (Allergies): no. B (Bleeding Tendency, personal or family): no. Recent Aspirin, Plavix or Warfarin Use: no. C (Cardiac History, Recent Corticosteroids, Cervical Spine Problems): no. D (Diabetes): no. E (Embolic/Stroke or Clotting History): no. F (Family History of Anesthesia Complications, personal or family): no. G (Glaucoma, GERD): no. H (Hepatitis or HIV Risk): no. I (Intubation Difficulties) Mallampati Score (seated, neck in neutral position, tongue fully protruded without phonation): I (soft palate, uvula, fauces, and tonsillar pillars visible). N (Pre-existing Neurologic Deficits): no. O (Obstructive Sleep Apnea): no. CARDIOVASCULAR HISTORY: Cardiovascular History: hypertension on treatment . Hyperlipidemia on treatment Stent in the Past 12 Months: no. History of Bacterial Endocarditis: no. History of Heart Valve Replacement: no. PULMONARY HISTORY: Pulmonary History: COPD - and Smoking history - current every day smoker 1/2 pack per day . Oxygen Use: no. OTHER HISTORY: Other Medical History: Gout, will hold colchicine and indomethacin prior to proceed . History of Joint Replacement: no. Needs Antibiotics Prior to Surgery or Dental Procedures: no. Recent Illnesses: no. Recent Antibiotic Use: no. History of MRSA Skin Infections: no. Smoker: yes. Alcohol Use: no. Illicit Drug Use: no. : no. Glasses/Contacts: yes. Hearing Aids: no. Dentures/Dental Issues: yes. REVIEW OF SYSTEMS A focused Review of Systems was performed with pertinent information listed in the History of Present Illness, all other negative. 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 Level With Radiculopathy Pain Hip Right Pain Foot Right Gout Tumor Warthin's Primary Osteoarthritis Wrist Left SURGICAL HISTORY Past Surgical History: Procedure Laterality Date APPENDECTOMY ESOPHAGOGASTRODUODENOSCOPY N/A 06/04/2020 Procedure: Esophagogastroduodenoscopy; Surgeon: Estelle Berger M.D.; Location: [facility] OR EXPLORATORY LAPAROTOMY N/A 06/04/2020 Procedure: EXPLORATORY LAPAROTOMY; Surgeon: Estelle Berger M.D.; Location: [facility] OR HAND-ASSISTED LAPAROSCOPIC EXTENDED COLECTOMY RIGHT WITH ANASTOMOSIS Right 06/01/2020 Procedure: HAND-ASSISTED LAPAROSCOPIC EXTENDED COLECTOMY RIGHT WITH ANASTOMOSIS.; Surgeon: Narayan Phan M.D.; Location: [facility] OR MONITORING FACIAL NERVE Left 08/29/2022 Procedure: MONITORING FACIAL NERVE.; Surgeon: Ángel aPck M.D.; Location: [facility] OR OTHER SURGICAL HISTORY PAROTIDECTOMY SUPERFICIAL Left 08/29/2022 Procedure: PAROTIDECTOMY SUPERFICIAL.; Surgeon: Ángel Pack M.D.; Location: [facility] OR RADICAL ORCHIECTOMY 07/10/2020 TONSILLECTOMY FAMILY HISTORY Family History Problem Relation Name Age of Onset Hypertension Mother No Known Problems Father No Known Problems Sister No Known Problems Brother SOCIAL HISTORY Social History Tobacco Use Smoking status: Every Day Current packs/day: 0.75 Average packs/day: 0.8 packs/day for 25.0 years (18.8 ttl pk-yrs) Types: Cigarettes Passive exposure: Current Smokeless tobacco: Never Vaping Use Vaping status: former use Devices: [employer] Substance Use Topics Alcohol use: Yes Alcohol/week: 2.0 standard drinks of alcohol Types: 2 Cans of beer per week Comment: Daily caffeine Drug use: Never CURRENT MEDICATIONS Current Outpatient Medications Medication Sig acetaminophen (TYLENOL) 500 mg tablet Take 500 mg by mouth every 6 (six) hours as needed for pain. allopurinoL (Zyloprim) 100 mg tablet TAKE 1 TABLET(100 MG) BY MOUTH DAILY colchicine (Colcrys) 0.6 mg tablet Take 2 tablets (1.2 mg) once, then in 1 hour take 1 tablet (0.6 mg). indapamide (LozoL) 2.5 mg tablet TAKE 1 TABLET(2.5 MG) BY MOUTH DAILY indomethacin (Indocin) 50 mg capsule Take 1 capsule (50 mg total) by mouth 2 (two) times a day withmeals. lisinopriL (PRINIVIL,ZESTRIL) 20 mg tablet TAKE 1 TABLET(20 MG) BY MOUTH DAILY nicotine (Nicoderm CQ) 14 mg/[address] 1 patch on the skin daily. Apply 28 mg (1 x 21 mg patch and 1 x 7 mg patch) daily for 4-6 weeks, then taper in 7- 14 mg steps every 2-6 weeks until off. Pharmacy - Place on file nicotine (Nicoderm CQ) 21 mg/[address] 1 patch on the skin daily. Apply 28 mg (1 x 21 mg patch and 1 x 7 mg patch) daily for 4-6 weeks, then taper in 7- 14 mg steps every 2-6 weeks until off. nicotine (Nicoderm CQ) 7 mg/[address] 1 patch on the skin daily. Apply 28 mg (1 x 21 mg patch and 1 x 7 mg patch) daily for 4-6 weeks, then taper in 7- 14 mg steps every 2-6 weeks until off. NIFEdipine (ADALAT CC) 30 mg ER tablet Take 1 tablet (30 mg total) by mouth daily. rosuvastatin (Crestor) 10 mg tablet Take 1 tablet (10 mg total) by mouth at bedtime. tamsulosin (Flomax) 0.4 mg 24 hr capsule Take 1 capsule (0.4 mg total) by mouth 2 (two) times a day. ALLERGIES/CONTRAINDICATIONS No Known Allergies OBJECTIVE VITAL SIGNS BP 102/65 (BP Location: Right arm, Patient Position: Sitting, Cuff Size: Regular) Pulse 80 Temp37.3 ??C (Temporal) Ht 177 cm Wt 65.6 kg BMI 20.94 kg/m?? PHYSICAL EXAMINATION Constitutional General: He is not in acute distress. Appearance: Normal appearance. He is well-groomed and normal weight. He is not ill-appearing. HENT Right Ear: Tympanic membrane, ear canal and external ear normal. Left Ear: Tympanic membrane, ear canal and external ear normal. Nose: Nose normal. Mouth/Throat: Mouth: Mucous membranes are moist. Pharynx: Oropharynx is clear. Eyes Conjunctiva/sclera: Conjunctivae normal. Pupils: Pupils are equal, round, and reactive to light. Neck Thyroid: No thyromegaly. Vascular: No carotid bruit. Trachea: Trachea normal. Cardiovascular Rate and Rhythm: Normal rate and regular rhythm. Pulses: Normal pulses. Heart sounds: Normal heart sounds, S1 normal and S2 normal. No murmur heard. No friction rub. No gallop. No S3 or S4 sounds. Pulmonary Effort: Pulmonary effort is normal. Breath sounds: Normal breath sounds. No decreased breath sounds, wheezing, rhonchi or rales. Abdominal General: Abdomen is flat. Bowel sounds are normal. Palpations: Abdomen is soft. There is no hepatomegaly, splenomegaly or mass. Tenderness: There is no abdominal tenderness. Musculoskeletal General: Normal range of motion. Cervical back: Normal range of motion and neck supple. No muscular tenderness. Right lower leg: No edema. Left lower leg: No edema. Lymphadenopathy Cervical: No cervical adenopathy. Skin General: Skin is warm and dry. Neurological General: No focal deficit present. Mental Status: He is alert and oriented to person, place, and time. Cranial Nerves: Cranial nerves 2-12 are intact. Motor: Motor function is intact. Psychiatric Attention and Perception: Attention normal. Mood and Affect: Mood and affect normal. Speech: Speech normal. Behavior: Behavior normal. Behavior is cooperative. Thought Content: Thought content normal. Cognition and Memory: Cognition normal. Judgment: Judgment normal. DIAGNOSTICS none indicated at this time. ASSESSMENT / PLAN 1. Preoperative Exam (Primary) PLAN: Patient medically acceptable for planned procedure - See RAHAT in HPI above. The patient is deemed to have a medically satisfactory risk profile for the planned surgical procedure, and of low risk of a giovani-operative cardiac event. Patient is capable of >4 METS activity without unusual dyspnea orchest pain, no additional cardiac testing is needed.. We reviewed medications to avoid taking priorto the procedure including avoiding aspirin, NSAIDs, and herbal medications for at least 1 week prior to surgery. The patient knows to be fasting after midnight the day of surgery. Further pre-operative and post-operative recommendations will be given prior to surgery by surgeon. Patient will followup as needed. PATIENT EDUCATION: Ready to learn, no apparent learning barriers were identified; learning preferences include listening. Explained diagnosis and treatment plan; patient expressed understanding of the content, discussed at length. All questions answered. Trish Cardoso APRN, C.N.P. HANA ARCHITECT documented in this encounter Plan of Treatment Upcoming Encounters Date Type Department Care Team (Late st Contact Info) Description 06/14/2024 9:30 AM SAP HANA ARCHITECT Comprehensive Visit Department of Orthopedic Surgery in [place], [place] [address] [place] [phone] Jake Rahman M.B.BTrentSTrent [address] [place] [phone] 06/21/2024 9:15 AM SAP HANA ARCHITECT Procedure visit Department of Urology in [place], [place] [address] [phone] Jack Galvez M.D. [address] [phone] documented as of this encounter Visit Diagnoses Diagnosis Preoperative Exam- Primary documented in this encounter Additional Health Concerns Assessment Noted Time PHQ-9 Depression Total Score: 9 07/19/19 23 11:57 AM SAP HANA ARCHITECT documented as of this encounter Care Teams Horse Wrangler Relationship Specialty Start Date End Date Lula Ruiz M.D. [address] [phone] PCP - General 10/31/23 documented as of this encounter
--- OUTSIDE RECORDS SUMMARY | 2024-06-12 18:16 | XMS_ITS | Encounter Summary ---
Author Organization [facility] Address [address] [place] [id number] Care Team Providers Care Info Print Press Operator Name Role Phone Lula Ruiz M.D. Primary Care Provider + Reason for Referral * Outpatient (Routine) - Authorized Specialty Diagnoses / Procedures Referred By Hina dillon Referred To Contact Diagnoses Benign Prostatic Hyperplasia Hypertrophy With Obstruction Procedures Cystoscopy (specific provider) Jack Galvez M.D. [address] [place] [phone] Phone: tel: fax: Jack Galvez M.D. [address] [place] [phone] Phone: tel: fax: Referral ID Status Reason Start Date Expiration Date V isits Requested Visits Authorized [id number] Authorized 05/31/2024 05/31/2025 1 1 DEPARTMENT HELPER Reason for Visit * Reason Comments Benign Prostatic Hypertrophy * Appointment Request (Routine) - Closed Specialty Diagnoses / Procedures Referred By Contac t Referred To Contact Urology Referral ID Status Reason Start Date Expiration Date Visits Re quested Visits Authorized [id number] Closed 05/24/2024 05/24/2025 1 1 Encounter Details Date Type Department Care Team (Late st Contact Info) Description 05/31/2024 8:45 AM TEST DEPARTMENT HELPER Office Visit Department of Urology in [place], [place] [address] [place] [phone] Jack Galvez M.D. [address] [place] [phone] Benign Prostatic Hyperplasia Hypertrophy With Obstruction (Primary Dx); Dysfunction Erectile Due To Other Diseases Social History Tobacco Use Types Packs/Day Years Used Date Smoking Tobacco: Every Day Cigarettes 0.8 25 Passive Smoke Exposure: Current Smokeless Tobacco: Never Tobacco Cessation:Ready to Q uit: No; Counseling Given: Not Answered Alcohol Use Standard Drinks/Week Comments Yes 2 (1 standard drink = 0.6 oz pur e alcohol) Daily caffeine [facility] Utilities Answer Date Recorded In the past 12 months has e [employer], gas, oil, or water [employer] threatened to shut off services in your [...] often do you attend chur ch or confucianism services? Never 07/13/2022 Do you belong to any clubs o r organizations such as bahai groups, unions, fraternal or athletic groups, or [...] Answer Date Recorded PHQ-2 Score 2 05/25/2024 [facility]ational Stress Questionnaire Answer Date [...] your living situation today? I have a [facility] place to live 07/22/2023 Education Answer Date [...] on file documented as of this encounter Progress Notes * Jack Galvez M.D. - 05/31/2024 8:45 AM CST SUBJECTIVE CHIEF COMPLAINT / REASON FOR VISIT Chief Complaint Patient presents with Benign Prostatic Hypertrophy HISTORY OF PRESENT ILLNESS Vahid Young is a 64 y.o. male who has a lower urinary tract symptoms. He had been on tamsulosin. For reasons that he is unclear about, the medication was discontinued, or simply fell off his list. Regardless he is not taking it anymore. He was doing better with Flomax. He was last seen almost threeyears ago, at which time he was to return for cystoscopy. The reason for that, as the Flomax was less than completely helpful. His symptoms are worse without the Flomax. He also complains about erectile dysfunction. I-PSS Urinary Symptoms Score: (Proxy-Rptd) 23 I-PSS Quality of Life Score: (Proxy-Rptd) 4 The following portions of the patient's history were reviewed and updated as appropriate: allergies, current medications, family history, medical history, social history, surgical history and problemlist. OBJECTIVE Electronic calibrated uroflow is performed. The patient voided 46 mL of urine in 9 seconds. Peak flow is 6 mL/sec with a mean flow of 5 mL/sec. The shape of the curve is round. Bladder scan postvoid residual is estimated to be 0 mL. 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 Refill Flomax. 0.4 mg twice daily. 2. Make arrangements for him to come back in the near future for cystoscopy. At that time we will do a cystoscopy after the uroflow. 3. At this point he is not ready to consider medical management of his erectile dysfunction, he will let us know. I did explain to him that he has multiple comorbidities that would predispose towardserectile dysfunction. This would include his tobacco use, hypertension, elevated cholesterol. Jack Galvez M.D. 05/31/24 8:59 AM TEST DEPARTMENT HELPER DEPARTMENT HELPER documented in this encounter Plan of Treatment Upcoming Encounters Date Type Department Care Team (Late st Contact Info) Description 06/14/2024 9:30 AM TEST DEPARTMENT HELPER Comprehensive Visit Department of Orthopedic Surgery in [place], [place] [address] [place] [phone] Jake Rahman M.B.BTrentS. [address] [place] [phone] 06/21/2024 9:15 AM TEST DEPARTMENT HELPER Procedure visit Department of Urology in [place], [place] [address] [phone] Jack Galvez M.D. [address] [place] [phone] documented as of this encounter Visit Diagnoses Diagnosis Benign Prostatic Hyperplasia Hypertrophy With Obstruction- Primary Dysfunction Erectile Due To Other Diseases documented in this encounter Additional Health Concerns Assessment Noted Time PHQ-9 Depression Total Score: 9 07/19/19 23 11:57 AM TEST DEPARTMENT HELPER documented as of this encounter Care Teams Info Print Press Operator Relationship Specialty Start Date End Date Lula Ruiz M.D. [address] [place] [phone] PCP - General 10/31/23 documented as of this encounter
--- OUTSIDE RECORDS SUMMARY | 2024-06-12 18:16 | XMS_ITS | Encounter Summary ---
Author Organization [facility] Address [address] [place] [address] Care Team Providers Care Solar Electric/Photovoltaic Installer Name Role Phone Lula Ruiz M.D. Primary Care Provider + Reason for Visit * Reason Comments Med Refill Encounter Details Date Type Department Care Team (Late st Contact Info) Description 04/28/2024 Refill Department of Family Medicine, [facility], in [place], [place] [address] [place] [phone] Dottie Pavon M.D. [address] [place] [phone] Med Refill Social History Tobacco Use Types Packs/Day Years Used Date Smoking Tobacco: Every Day Cigarettes 0.8 25 Passive Smoke Exposure: Current Smokeless Tobacco: Never Alcohol Use Standard Drinks/Week Comments Yes 2 (1 standard drink = 0.6 oz pur e alcohol) Daily caffeine [facility] Utilities Answer Date Recorded In the past 12 months has [employer], gas, oil, or water [employer] threatened to shut off services in your [...] often do you attend chur ch or islam services? Never 07/13/2022 Do you belong to any clubs o r organizations such as nondenominational groups, unions, fraternal or athletic groups, or [...] PHQ-2 Answer Date Recorded PHQ-2 Score 2 06/01/2023 [facility] - Occupational [...] your living situation today? I have a [facility] place to live 07/22/2023 Education Answer [...] st Contact Info) Description 06/14/2024 9:30 AM INTERNAL REVENUE AGENT Comprehensive Visit Department of Orthopedic Surgery in [place], [place] [address] [place] [phone] Jake Rahman M.B.B.S. [address] [place] [phone] 06/21/2024 9:15 AM INTERNAL REVENUE AGENT Procedure visit Department of Urology in [place], [place] [address] [phone] Jack Galvez M.D. [address] [phone] documented as of this encounter Visit Diagnoses Diagnosis Gout documented in this encounter Additional Health Concerns Assessment Noted Time PHQ-9 Depression Total Score: 9 07/19/19 23 11:57 AM INTERNAL REVENUE AGENT documented as of this encounter Care Teams Solar Electric/Photovoltaic Installer Relationship Specialty Start Date End Date Lula Ruiz M.D. [address] [phone] PCP - General 10/31/23 documented as of this encounter
--- OUTSIDE RECORDS SUMMARY | 2024-06-12 18:16 | XMS_ITS | Encounter Summary ---
Author Organization [facility] Address [address] [place] [address] Care Team Providers Care Field Representative Name Role Phone Lula Ruiz M.D. Primary Care Provider + Reason for Visit * Reason Onset Date Comments Med Refill 06/01/2024 Encounter Details Date Type Department Care Team (Late st Contact Info) Description 06/01/2024 Refill Department of Family Medicine, [facility], in [place], [place] [address] [address] Lula Ruiz M.D. [address] [address] Med Refill Social History Tobacco Use Types Packs/Day Years Used Date Smoking Tobacco: Every Day Cigarettes 0.8 25 Passive Smoke Exposure: Current Smokeless Tobacco: Never Tobacco Cessation:Ready to Q uit: Not Asked; Counseling Given: Not Answered Alcohol Use Standard Drinks/Week Comments Yes 30 (1 standard drink = 0.6 oz pu re alcohol) Daily caffeine [facility] Utilities Answer Date Recorded In the past 12 months has e [facility] [employer], gas, oil, or water [employer] threatened to shut off services in your [...] often do you attend chur ch or episcopalian services? Never 07/13/2022 Do you belong to any clubs o r organizations such as orthodoxy groups, unions, fraternal or athletic groups, or [...] Answer Date Recorded PHQ-2 Score 2 05/25/2024 [facility] [place] of Occupat ional Health - Occupational Stress [...] your living situation today? I have a [facility] place to live 07/22/2023 Education Answer [...] on file documented as of this encounter Miscellaneous Notes * Telephone Encounter - Licha Anna L.P.NTrent - 06/08/2024 3:49 PM NAILHEAD PUNCHER I called [facility] and they informed me that Vahid's insurance will cover tamsulosin 0.4 mgonce daily for a 30 day supply at a time, but they will not cover it for a 90 day supply. HEAD PUNCHER * Telephone Encounter - Lula Ruiz M.D. 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 It looks like there were two prescriptions sent by Dr. Galvez on the same day for different doses. This one was denied, but we need to see if the other went through. Please find out. HEAD PUNCHER * Telephone Encounter - Jade Moreland - 06/01/2024 11:19 AM CST Images from the original note were not included. Needs Review: Med Refill Team is unable to forward request to provider. Drug Change Request Primary Provider: Lula Ruiz M.D. HEAD PUNCHER documented in this encounter Plan of Treatment Upcoming Encounters Date Type Department Care Team (Late st Contact Info) Description 06/14/2024 9:30 AM NAILHEAD PUNCHER Comprehensive Visit Department of Orthopedic Surgery in [place], [place] [address] [place] [address] Jake Rahman M.B.B.S. [address] [place] [address] 06/21/2024 9:15 AM NAILHEAD PUNCHER Procedure visit Department of Urology in [place], [place] [address], [place] [address] Jack Galvez M.D. [address], [place] [address] documented as of this encounter Visit Diagnoses Not on filedocumented in this encounter Additional Health Concerns Assessment Noted Time PHQ-9 Depression Total Score: 9 07/19/19 23 11:57 AM NAILHEAD PUNCHER documented as of this encounter Care Teams Field Representative Relationship Specialty Start Date End Date Lula Ruiz M.D. [address] [address] PCP - General 10/31/23 documented as of this encounter
--- OUTSIDE RECORDS SUMMARY | 2024-06-12 18:16 | XMS_ITS | Encounter Summary ---
Author Organization [facility] Address [address] [place] [id number] Care Team Providers Care Bundle Packer Name Role Phone Lula Ruiz M.D. Primary Care Provider + Reason for Visit * Reason Comments Med Refill Encounter Details Date Type Department Care Team (Late st Contact Info) Description 05/11/2024 Refill Department of Family Medicine, [facility], in [place], [place] [address] [address] Celeste Romero APRN, C.N.P., D.N.P. [address] [address] Med Refill Social History Tobacco Use Types Packs/Day Years Used Date Smoking Tobacco: Every Day Cigarettes 0.8 25 Passive Smoke Exposure: Current Smokeless Tobacco: Never Alcohol Use Standard Drinks/Week Comments Yes 2 (1 standard drink = 0.6 oz pur e alcohol) Daily caffeine [facility] Utilities Answer Date Recorded In the past 12 months has [email or web address] electric, gas, oil, or water company threatened [...] often do you attend chur ch or nondenominational services? Never 07/13/2022 Do you belong to any clubs o r organizations such as episcopalian groups, unions, fraternal or athletic groups, or [...] Answer Date Recorded PHQ-2 Score 2 06/01/2023 [facility] [place] of Occupat ional Health - Occupational Stress [...] your living situation today? I have a [facility] place to live 07/22/2023 Education Answer Date [...] st Contact Info) Description 06/14/2024 9:30 AM ELEMENTARY ELL TEACHER Comprehensive Visit Department of Orthopedic Surgery in [place], [place] [address] [place] [address] Jake Rahman M.B.BTrentS. [address] [place] [address] 06/21/2024 9:15 AM ELEMENTARY ELL TEACHER Procedure visit Department of Urology in [place], [place] [address] [place] [phone] Jack Galvez M.D. [address] [place] [phone] documented as of this encounter Visit Diagnoses Diagnosis Pain Thumb Right documented in this encounter Additional Health Concerns Assessment Noted Time PHQ-9 Depression Total Score: 9 07/19/19 23 11:57 AM ELEMENTARY ELL TEACHER documented as of this encounter Care Teams Bundle Packer Relationship Specialty Start Date End Date Lula Ruiz M.D. [address] [place] [phone] PCP - General 10/31/23 documented as of this encounter
[2024-06-12 18:47] VITALS: BP 80/44; PULSE 82; RESP 20; TEMP 36.4; O2SAT 99
--- NOTE | 2024-06-12 19:05 | ED_ITS ---
HPI - General Adult General Time Seen by Provider: 19:06 Date Seen: 06/12/24 Chief complaint: Cough Stated complaint: bad cough, hernia, lungs burning Time Seen by Provider: 06/12/24 19:02 Source: patient, RN notes reviewed and old records reviewed Mode of arrival: ambulatory Limitations: no limitations History of Present Illness HPI narrative: 64-year-old male with history of COPD presents today with cough and right groin pain. Patient cough has been going on for days, occasional clear sputum. Also notes a runny nose. Denies chest pain, shortness of breath, nausea, vomiting, has had some loose stools. No fevers. Smokes and has a history of COPD, used his albuterol inhaler with minimal improvement. Also notes right inguinal pain, notes a work injury about a week ago and was told he has a hernia, is not noted any bulging but has pain with this when he moves especially when he coughs. Related Data Home Medications ?Medication ?Instructions ?Recorded ?Confirmed amlodipine 5 mg tablet 5 mg PO QDAY 01/24/22 01/24/22 hydrochlorothiazide 25 mg tablet 25 mg PO QDAY 01/24/22 01/24/22 lisinopril 20 mg tablet 20 mg PO QDAY 01/24/22 01/24/22 nicotine 21 mg/24 hr daily 1 patch topical QDAY 01/24/22 01/24/22 transdermal patch Allergies Allergy/AdvReac Type Severity Reaction Status Date / Time No Known Drug Allergies Allergy Verified 12/28/21 11:41 [facility] Medical History (Updated 06/12/24 @ 20:21 by Kirk Jose MD) Degenerative disc disease Chronic pain syndrome ?G89.4 - Chronic pain syndrome (ICD-10) History of Clostridioides difficile infection (06/16/20) ?Z86.19 - Personal history of other infectious and parasitic diseases (ICD- 10) History of colon polyps ?Z86.010 - Personal history of colonic polyps (ICD-10) Hyperlipidemia ?E78.5 - Hyperlipidemia, unspecified (ICD-10) Hypertension ?I10 - Essential (primary) hypertension (ICD-10) History of gout ?Z87.39 - Personal history of other diseases of the musculoskeletal system and connective tissue (ICD-10) History of diverticulitis (06/01/20) ?Z87.19 - Personal history of other diseases of the digestive system (ICD-10) COPD (chronic obstructive pulmonary disease) ?J44.9 - Chronic obstructive pulmonary disease, unspecified (ICD-10) Surgical History History of temporal artery biopsy (02/05/19) ?Z98.890 - Other specified postprocedural states (ICD-10) History of selective injection of anesthetic agent around lumbar nerve root (09/09/19) ?Z98.890 - Other specified postprocedural states (ICD-10) History of vagotomy (~1970) ?Z98.890 - Other specified postprocedural states (ICD-10) History of exploratory laparotomy (06/04/20) ?Z98.890 - Other specified postprocedural states (ICD-10) History of tonsillectomy ?Z90.89 - Acquired absence of other organs (ICD-10) History of partial colectomy (06/01/20) ?Z90.49 - Acquired absence of other specified parts of digestive tract (ICD- 10) History of unilateral orchiectomy (07/10/20) ?Z90.79 - Acquired absence of other genital organ(s) (ICD-10) History of appendectomy ?Z90.49 - Acquired absence of other specified parts of digestive tract (ICD- 10) Family History (Updated 12/28/21 @ 11:54 by Kinjal Carranza) Mother High blood pressure Father High blood pressure Social History Smoking Status: Current every day smoker Second hand tobacco smoke exposure: Yes How often do you have a drink containing alcohol: never AUDIT-C Alcohol total score: 0 Non-prescribed substance use: denies use Exam Narrative: Exam Narrative: General: Well-developed and well-nourished, no acute distress Head: Atraumatic and normocephalic Eyes: Pupils are equal reactive, extraocular motions intact, conjunctiva clear ENT: External nose and ears are normal, posterior pharynx without erythema or exudate Neck: No midline cervical tenderness, full spontaneous range of motion the neck, trachea midline, no adenopathy Heart: Regular rate and rhythm no murmurs or thrills Lungs: Clear to auscultation bilaterally without wheezes or crackles, frequent dry cough Abdomen: Soft, right inguinal tenderness with no bulge or mass, no palpable abdominal wall defect, nondistended with active bowel sounds Musculoskeletal: No tenderness, deformity, or edema Neurologic: Awake, alert, and oriented x3, no gross focal neurologic deficits, cranial nerves intact as tested Psych: Mood and affect are appropriate Skin: No rashes Const: Vital Signs, click to edit/add: Vital Signs - 24 hr 06/12/24 18:47 06/12/24 19:06 Temperature 97.5 F L 98.0 F Pulse Rate [Pulse Oximeter] 82 75 Respiratory Rate 20 20 Blood Pressure [Ri ght Upper Arm] 80/44 L 109/79 Pulse Oximetry 99 99 Oxygen Delivery Me thod Room Air Room Air Course Course ED Course: Reviewed most recent emergency department evaluation June 08 when patient was seen for the same complaints, CT scan at that time without evidence for hernia, chest x-rays negative for acute findings. Labs with normal BMP, normal lactate, normal CBC, negative urinalysis. Per note at that time, right inguinal hernia was present but it is not clear if any procedures were performed to reduce this, and subsequent CT scan was negative. Patient presents today with cough, this been going on for 4 days. History of COPD and current smoker. Denies associated chest pain or shortness of breath, cough with occasional clear sputum. Also notes right inguinal pain which is been going on for about a week after lifting something heavy at work. On exam here, patient initially was hypotensive but on recheck is stable with no hypoxia, no tachycardia, afebrile. Lungs are clear and no respiratory distress, frequent dry cough. Consider possible COPD exacerbation, possibly from underlying viral illness. Consider also pulmonary embolism. Labs including BNP, D-dimer ordered, patient just had a chest x-ray was negative and so will defer further imaging at this time but consider CT scan for closer evaluation. Patient also with some right inguinal pain, recently diagnosed with a hernia and has follow-up with general surgery next week. patient has no vomiting or evidence for obstruction, and on my exam there is no mass or palpable abdominal wall defect and review of prior CT scan shows no hernia, consider abdominal wall strain or groin strain with continual exacerbation from forceful cough. Outpatient follow-up with surgery is appropriate, no further imaging at this time. Reevaluation(s) Time of Reevaluation #1: 20:17 Reevaluation #1: Labs ordered and independently interpreted by me with negative D-dimer, mild hyponatremia, negative BNP, negative respiratory panel. Given worsening cough with COPD, patient will be started on amoxicillin and doxycycline as well as prednisone and Robitussin with codeine for cough. No further imaging at this time although did consider CT study or repeat chest x-ray. Vital Signs Vital signs: Initial Vital Signs Temperature 97.5 F L 06/12/24 18:47 Temperature Source Temporal Artery Scan 06/12/24 18:47 Pulse Rate 82 06/12/24 18:47 Respiratory Rate 20 06/12/24 18:47 Blood Pressure 80/44 L 06/12/24 18:47 Blood Pressure Mean 56 L 06/12/24 18:47 Blood Pressure Position Sitting 06/12/24 18:47 Pulse Oximetry 99 06/12/24 18:47 Oxygen Delivery Method Room Air 06/12/24 18:47 Vital Signs Temperature 97.5 F L 06/12/24 18:47 Pulse Rate 82 06/12/24 18:47 Respiratory Rate 20 06/12/24 18:47 Blood Pressure 80/44 L 06/12/24 18:47 Pulse Oximetry 99 06/12/24 18:47 Oxygen Delivery Method Room Air 06/12/24 18:47 Temperature 98.0 F 06/12/24 19:06 Pulse Rate 75 06/12/24 19:06 Respiratory Rate 20 06/12/24 19:06 Blood Pressure 109/79 06/12/24 19:06 Pulse Oximetry 99 06/12/24 19:06 Oxygen Delivery Method Room Air 06/12/24 19:06 Medications Administered Medications: Generic Name Dose Route Start Last Admin Trade Name Monae PRN Reason Stop Dose Admin Albuterol/Ipratropium 1 neb 06/12/24 19:25 06/12/24 19:30 Iprat-Albut 0.5-2.5 Mg/3 Ml Neb IH 06/12/24 19:26 1 neb ONCE ONE Administration Methylprednisolone Sodium Succinate 125 mg 06/12/24 19:25 06/12/24 19:31 Methylprednisolone Sod Succ 62.5 Mg/Ml (125) IVP 06/12/24 19:26 125 mg ONCE ONE Administration Medical Decision Making Lab Data Labs: Lab Results 06/12/24 06/12/24 06/12/24 Range/Units 18:52 19:00 19:26 D-Dimer Quant (PE/DVT) 0.39 (0.00-0.50) ug/ml Sodium 128 L (135-149) mmol/L Potassium 3.6 (3.6-5.1) mmol/L Chloride 93 L (96-114) mmol/L Carbon Dioxide 22 (20-32) mmol/L Anion Gap 13 (7-15) mEq/L BUN 8 (7-30) mg/dL Creatinine 0.7 (0.5-1.5) mg/dL Estimated GFR 103 ml/min Glucose 82 (60-115) mg/dL Calcium 9.3 (8.4-10.6) mg/dL Magnesium 2.0 (1.5-2.6) mg/dL NT-Pro-B Natriuret Pep 24 pg/mL SARS-CoV-2 (PCR) Negative SARS-CoV-2 (Negative) Influenza Type A (PCR) Negative PCR FLU A (Negative) Influenza Type B (PCR) Negative PCR FLU B (Negative) RSV (PCR) Negative PCR RSV (Negative) POC Troponin I 0.00 L (0.01-0.04) ng/ml Discharge Plan Discharge Clinical Impression: Acute exacerbation of chronic obstructive pulmonary disease, Right inguinal pain, Acute hyponatremia Patient Disposition: Home, Self-Care Condition: Stable Instructions: Hyponatremia (ED), COPD (Chronic Obstructive Pulmonary Disease) (ED) Additional Instructions: Take prednisone, antibiotics as prescribed. Use your inhaler as needed. Stop taking hydrochlorothiazide for now measure blood pressure is little bit low, and this may be contributing to low sodium Activity Level: No Restrictions Discharge Diet: Regular Prescriptions: No Action nicotine 21 mg/24 hr patch 24 hour 1 patch topical QDAY Patient Comments: APPLY 1 PATCH TOPICALLY TO THE SKIN DAILY hydrochlorothiazide 25 mg tablet 25 mg PO QDAY lisinopril 20 mg tablet 20 mg PO QDAY amlodipine 5 mg tablet 5 mg PO QDAY Follow Up/Referrals: Provider,Not a Local [Primary Care Provider] - Stand Alone Forms: [employer] Info Instructions
[2024-06-12 19:06] VITALS: BP 109/79; PULSE 75; RESP 20; TEMP 36.7; O2SAT 99
[2024-06-12 19:15] VITALS: O2SAT 99
[2024-06-12] MEDS: IPRAT-ALBUT 0.5-2.5 MG/3 ML NEB 1 NEB IH (19:30)
[2024-06-12] MEDS: METHYLPREDNISOLONE SOD SUCC 62.5 MG/ML (125) 125 MG IVP (19:31)
[2024-06-12 19:46] LABS: PCR FLU A Negative PCR FLU A (Negative); PCR FLU B Negative PCR FLU B (Negative); PCR RSV Negative PCR RSV (Negative); SARS PCR* Negative SARS-CoV-2 (Negative)
[2024-06-12 19:49] LABS: Chloride* 93 mmol/L (96-114); Potassium* 3.6 mmol/L (3.6-5.1); Sodium* 128 mmol/L (135-149)
--- OUTSIDE RECORDS SUMMARY | 2024-06-12 19:49 | XMS_ITS | Clinical Summary ---
Author Organization [facility] Address [place], [place] [address] Care Team Providers Care Development Consultant Name Role Phone Pcp, No Primary Care Provider Unavailabl e Allergies No known active allergies Medications lisinopril (PRINIVIL; ZESTRIL) 20 mg tablet Take 20 mg by mouth once daily. In the AM Active amLODIPine (NORVASC) 5 mg tablet Take 5 mg by mouth once daily. Active Multivits,Ca,Mine rlaz-Mzye-MB 9 mg iron-400 mcg tablet Take 1 [...] Team Description 06/11/2024 Travel 06/08/2024 3:22 PM ENVELOPE PRESS OPERATOR - 06/08/2024 6:12 PM [facility] Emergency [facility] [address], [place] [address] Radha River, KIERA Inguinal hernia without obstruction [...] Comments Blood Pressure 128/65 06/08/2024 3:15 PM ENVELOPE PRESS OPERATOR Pulse 64 06/08/2024 3:15 PM ENVELOPE PRESS OPERATOR Temperature 36.5 C (97.7 F) 06/08/2024 3:15 PM ENVELOPE PRESS OPERATOR Respiratory Rate 18 06/08/2024 3:15 PM ENVELOPE PRESS OPERATOR Oxygen Saturation 100% 06/08/2024 3:15 PM ENVELOPE PRESS OPERATOR Inhaled Oxygen Concentration - - Weight 64.9 kg (143 lb) 06/08/2024 3:11 PM ENVELOPE PRESS OPERATOR Height 175.3 cm (5' 9) 06/08/2024 3:11 PM ENVELOPE PRESS OPERATOR Body Mass Index 21.12 06/08/2024 3:11 PM ENVELOPE PRESS OPERATOR Plan of Treatment Upcoming Encounters Date Type Department Care Team (Late st Contact Info) Description 06/15/2024 9:30 AM ENVELOPE PRESS OPERATOR Office Visit [address] [phone] Maurisio Conner MD [address] [place], [place] [phone] Health Maintenance Due Date Last Done Comments [...] series) 2035 Medical Devices Implanted Type Area Health Insurance Sales Agent Device Identifier Shelf Expiration Date Model / Serial / Lot Ancr Sut Mini Tightrope Kit - [id number] Implanted:Qty: 1 on 06/19/2023 by Celio Alanis MD at [facility] Left: Wrist [employer] 03/18/2028 [id number] / / [id number] Procedures Procedure Name Priority Date/Time Associated Diagnosis Comments XR CHEST 2 VIEWS PA AND LATERAL STAT 06/08/2024 5:29 PM ENVELOPE PRESS OPERATOR CT ABDOMEN PELVIS W STAT 06/08/2024 5 :24 PM ENVELOPE PRESS OPERATOR UA W/ SEDIMENT EXAM REFLEXED PER CRITERIA STAT 06/08/2024 4:38 PM ENVELOPE PRESS OPERATOR CBC WITH AUTO DIFFERENTIAL STAT 06/08/2024 4:18 PM ENVELOPE PRESS OPERATOR C-REACTIVE PROTEIN STAT 06/08/2024 4: 18 PM ENVELOPE PRESS OPERATOR BASIC METABOLIC PANEL STAT 06/08/2024 4:18 PM ENVELOPE PRESS OPERATOR CBC WITH AUTO DIFFERENTIAL STAT 06/08/2024 4:18 PM ENVELOPE PRESS OPERATOR LACTATE VENOUS STAT 06/08/2024 4:18 PM ENVELOPE PRESS OPERATOR COLONOSCOPY 01/20/2019 8:17 AM CDT from Last 3 Months or Most Recently Relevant to Health Maintenance Results * XR CHEST 2 VIEWS PA AND LATERAL (06/08/2024 5:29 PM ENVELOPE PRESS OPERATOR) Anatomical Region Laterality Modality CHEST, THORAX, Lung, HEART Digit al Radiography Radha River NP GENERAL IMAGING Fin al Result * CT Abdomen Pelvis w IV (Oral Contrast YES) (06/08/2024 5:24 PM ENVELOPE PRESS OPERATOR) Anatomical Region Laterality Modality Abdomen, Pelvis, AORTA, LIVER, SPLEEN Computed Tomography us Radha River ASSISTANT CASE MANAGER CT Fin al Result * UA W/ SEDIMENT EXAM REFLEXED PER CRITERIA (06/08/2024 4:38 PM ENVELOPE PRESS OPERATOR) COLOR Yellow Yellow Color 06/08/2024 4:47 PM [facility] CLARITY Clear Clear Clarity 06/08/2024 4:47 PM [facility] SPECIFIC GRAVITY,URINE 1.010 1.010, 1.015, 1.020, 1.025 06/08/2024 4:47 PM [facility] PH,URINE 7.0 6.0, 7.0, 8.0, 5.5, 6.5, 7.5, 8.5 06/08/2024 4:47 PM [facility] UROBILINOGEN,Q UALITATIVE Normal Normal EU/dl 06/08/2024 4:47 PM [facility] PROTEIN, URINE Negative Negative mg/dL 06/08/2024 4:47 PM [facility] GLUCOSE, URINE Negative Negative mg/dL 06/08/2024 4:47 PM [facility] KETONES,URINE Negative Negative mg/dL 06/08/2024 4:47 PM [facility] BILIRUBIN,URIN E Negative Negative 06/08/2024 4:47 PM [facility] OCCULT BLOOD,URINE Negative Negative 06/08/2024 4:47 PM [facility] NITRITE Negative Negative 06/08/2024 4:47 PM [facility] LEUKOCYTE ESTERASE Negative Negative 06/08/2024 4:47 PM [facility] Urine URINE SPECIMEN / Unknown Non-Blood / Unknown 06/08/2024 4:38 PM ENVELOPE PRESS OPERATOR 06/08/2024 4:44 PM [facility] us Radha River ASSISTANT CASE MANAGER URINE Fin al Result [facility] [address] [phone] * CBC WITH AUTO DIFFERENTIAL (06/08/2024 4:18 PM [facility]) WHITE BLOOD COUNT 9.5 4.5 - 11.0 thou/cu mm 06/08/2024 4:24 PM [facility] RED BLOOD COUNT 4.40 4.30 - 5.90 mil/cu mm 06/08/2024 4:24 PM [facility] HEMOGLOBIN 13.7 13.5 - 17.5 g/dL 06/08/2024 4:24 PM [facility] HEMATOCRIT 40.3 37.0 - 53.0 % 06/08/2024 4:24 PM [facility] MCV 92 80 - 100 fL 06/08/2024 4:24 PM [facility] MCH 31.1 26.0 - 34.0 pg 06/08/2024 4:24 PM [facility] MCHC 34.0 32.0 - 36.0 g/dL 06/08/2024 4:24 PM [facility] RDW 14.4 11.5 - 15.5 % 06/08/2024 4:24 PM [facility] PLATELET COUNT 319 140 - 440 thou/cu mm 06/08/2024 4:24 PM [facility] MPV 9.2 6.5 - 11.0 fL 06/08/2024 4:24 PM [facility] % NEUT 71.5 % 06/08/2024 4:24 PM [facility] % LYMPH 18.6 % 06/08/2024 4:24 PM [facility] % MONO 7.5 % 06/08/2024 4:24 PM [facility] % EOS 2.1 % 06/08/2024 4:24 PM [facility] % BASO 0.3 % 06/08/2024 4:24 PM [facility] ABSOLUTE NEUTROPHILS 6.8 1.7 - 7.0 thou/cu mm 06/08/2024 4:24 PM [facility] ABSOLUTE LYMPHOCYTES 1.8 0.9 - 2.9 thou/cu mm 06/08/2024 4:24 PM [facility] ABSOLUTE MONOCYTES 0.7 <0.9 thou/cu mm 06/08/2024 4:24 PM [facility] ABSOLUTE EOSINOPHILS 0.2 <0.5 thou/cu mm 06/08/2024 4:24 PM [facility] ABSOLUTE BASOPHILS 0.0 <0.3 thou/cu mm 06/08/2024 4:24 PM ENVELOPE PRESS OPERATOR [facility] Blood BLOOD SPECIMEN / Unknown IV Start / Unknown 06/08/2024 4:18 PM ENVELOPE PRESS OPERATOR 06/08/2024 4:19 PM ENVELOPE PRESS OPERATOR us Radha River ASSISTANT CASE MANAGER HEMATOLOGY Fin al Result Performing Organization Address [facility] Co de Phone Number [facility] [address] [phone] * LACTATE VENOUS (06/08/2024 4:18 PM ENVELOPE PRESS OPERATOR) LACTATE,VENOUS 1.1 0.5 - 2.0 mmol/L 06/08/2024 4:42 PM ENVELOPE PRESS OPERATOR [facility] Blood BLOOD SPECIMEN / Unknown IV Start / Unknown 06/08/2024 4:18 PM ENVELOPE PRESS OPERATOR 06/08/2024 4:19 PM ENVELOPE PRESS OPERATOR us Radha River NP CHEMISTRY Fin al Result Performing Organization Address [facility] Co de Phone Number [facility] [address] [phone] * (ABNORMAL) C-REACTIVE PROTEIN (06/08/2024 4:18 PM ENVELOPE PRESS OPERATOR) C-REACTIVE PROTEIN 1.6(H) <0.5 mg/dL 06/08/2024 4:43 PM ENVELOPE PRESS OPERATOR [facility] Blood BLOOD SPECIMEN / Unknown IV Start / Unknown 06/08/2024 4:18 PM ENVELOPE PRESS OPERATOR 06/08/2024 4:19 PM ENVELOPE PRESS OPERATOR us Radha River NP CHEMISTRY Fin al Result Performing Organization Address [facility] Co de Phone Number [facility] [address] [phone] * (ABNORMAL) BASIC METABOLIC PANEL (06/08/2024 4:18 PM ENVELOPE PRESS OPERATOR) SODIUM 137 136 - 145 mmol/L 06/08/2024 4:43 PM ENVELOPE PRESS OPERATOR [facility] POTASSIUM 4.0 3.5 - 5.1 mmol/L 06/08/2024 4:43 PM [facility] CHLORIDE 97(L) 98 - 107 mmol/L 06/08/2024 4:43 PM [facility] CO2,TOTAL 29 22 - 29 mmol/L 06/08/2024 4:43 PM [facility] ANION GAP 11 5 - 18 06/08/2024 4:43 PM [facility] GLUCOSE 90 70 - 99 mg/dL 06/08/2024 4:43 PM [facility] CALCIUM 9.2 8.8 - 10.4 mg/dL 06/08/2024 4:43 PM [facility] Comment: Reference ranges for this test were updated on 03/23/2024 to reflect our healthy population more accurately. Reference range changes are not retroactively applied to results, but previous results using the same methodology can be interpreted in the context of the new reference range. BUN 8 8 - 23 mg/dL 06/08/2024 4:43 PM [facility] CREATININE 0.76 0.70 - 1.20 mg/dL 06/08/2024 4:43 PM [facility] BUN/CREAT RATIO 11 10 - 20 4:43 PM [facility] eGFR >90 >90 mL/min/1.7 3m2 06/08/2024 4:43 PM [facility] Comment:As of 2021, eG FR is calculated by the CKD-EPI creatinine equation without race adjustment. eGFR can be influenced by muscle mass, exercise, and diet. The reported eGFR is an estimation only and is only applicable if the renal function is stable. Blood BLOOD SPECIMEN / Unknown IV Start / Unknown 06/08/2024 4:18 PM ENVELOPE PRESS OPERATOR 06/08/2024 4:19 PM [facility] us Radha River ASSISTANT CASE MANAGER CHEMISTRY Fin al Result [facility] [address] [phone] * COLONOSCOPY (01/20/2019 8:17 AM CDT) 01/20/2019 8:17 AM CDT Narrative Transcriptions Alejo Prado MD - 01/20/2019 9:12 AM CDT Patient Name: Vahid Young Procedure Date: 01/20/2019 Gender: Male Date of : 1960 Admit Type: Ambulatory Procedure: Colonoscopy Proceduralist: [facility], Trevon Wilcox, Medical Student (Project Architect) Referring MD: Luke Baca Indications/Pre-Op Diagnosis: Weight [...] the bowel preparation was evaluatedusing the BBPS (Valders Bowel Preparation Scale) with scores of: Right [...] 8:17 AM Procedure Code(s): --- Professional --- 06287, Colonoscopy, flexible; with removal of tumor(s), polyp(s), or other lesion(s) by snare technique 16510, 59, Colonoscopy, flexible; with biopsy, single or multiple CPT copyright 2018 [employer]. All rights reserved. The codes documented in this report are preliminary and upon chief resource officer reviewmay be revised to meet current compliance requirements. Alejo Prado MD PROCEDURE ORD Final Resul t from Last 3 Months or Most Recently Relevant to Health Maintenance Insurance [facility] [place] [address] Advance Directives * Full Code (Latest Code [...] 6:45 AM 01/20/2019 12:14 PM Care Teams Development Consultant Relationship Specialty Start Date End Date Pcp, No . PCP - General 06/08/24
--- OUTSIDE RECORDS SUMMARY | 2024-06-12 19:49 | XMS_ITS ---
Author Organization [facility] Address [address] [place] [id number] Care Team Providers Care Director Of Sustainability Programs Name Role Phone Unavailable Unavailable Unavailable Surgery Details Not on file Complications Check Surgery Details section. Procedure Estimated Blood Loss Check Surgery Details section. Procedure Findings Check Surgery Details section. Procedure Specimens Taken Check Surgery Details section.
--- OUTSIDE RECORDS SUMMARY | 2024-06-12 19:50 | XMS_ITS | Encounter Summary ---
Author Organization [facility] Address [address] [place] [address] Care Team Providers Care Leaflet Distributor Name Role Phone Lula Ruiz M.D. Primary Care Provider + Reason for Visit * Reason Comments Med Refill Encounter Details Date Type Department Care Team (Late st Contact Info) Description 04/28/2024 Refill Department of Family Medicine, [facility], in [place], [place] [address] [place] [address] Dottie Pavon M.D. [address] [place] [phone] Med Refill Social History Tobacco Use Types Packs/Day Years Used Date Smoking Tobacco: Every Day Cigarettes 0.8 25 Passive Smoke Exposure: Current Smokeless Tobacco: Never Alcohol Use Standard Drinks/Week Comments Yes 2 (1 standard drink = 0.6 oz pur e alcohol) Daily caffeine [facility] Utilities Answer Date Recorded In the past 12 months has [employer], gas, oil, or water [employer] threatened to shut off services in your [...] often do you attend chur ch or voodoo services? Never 07/13/2022 Do you belong to any clubs o r organizations such as restoration groups, unions, fraternal or athletic groups, or [...] Answer Date Recorded PHQ-2 Score 2 06/01/2023 [facility] [place] of Occupat ional Health - Occupational Stress [...] your living situation today? I have a [facility] place to live 07/22/2023 Education Answer [...] st Contact Info) Description 06/14/2024 9:30 AM HOSPICE VOLUNTEER COORDINATOR Comprehensive Visit Department of Orthopedic Surgery in [place], [place] [address] [place] [address] Jake Rahman M.B.B.S. [address] [place] [phone] 06/21/2024 9:15 AM HOSPICE VOLUNTEER COORDINATOR Procedure visit Department of Urology in [place], [place] [address] [phone] Jack Galvez M.D. [address] [phone] documented as of this encounter Visit Diagnoses Diagnosis Gout documented in this encounter Additional Health Concerns Assessment Noted Time PHQ-9 Depression Total Score: 9 07/19/19 23 11:57 AM HOSPICE VOLUNTEER COORDINATOR documented as of this encounter Care Teams Leaflet Distributor Relationship Specialty Start Date End Date Lula Ruiz M.D. [address] [phone] PCP - General 10/31/23 documented as of this encounter
--- OUTSIDE RECORDS SUMMARY | 2024-06-12 19:50 | XMS_ITS | Encounter Summary ---
Author Organization [facility] Address [address] [place] [address] Care Team Providers Care Auto Top Mechanic Name Role Phone Lula Ruiz M.D. Primary Care Provider + Reason for Visit * Reason Comments Med Refill Encounter Details Date Type Department Care Team (Late st Contact Info) Description 06/03/2024 Refill Department of Family Medicine, [facility], in [place], [place] [address] [phone] Celeste Romero APRN, C.N.P., D.N.P. [address] [phone] Med Refill Social History Tobacco Use Types Packs/Day Years Used Date Smoking Tobacco: Every Day Cigarettes 0.8 25 Passive Smoke Exposure: Current Smokeless Tobacco: Never Alcohol Use Standard Drinks/Week Comments Yes 2 (1 standard drink = 0.6 oz pur e alcohol) Daily caffeine [facility] Utilities Answer Date Recorded In the past 12 months has [employer], gas, oil, or water company threatened [...] often do you attend chur ch or latter-day services? Never 07/13/2022 Do you belong to any clubs o r organizations such as hindu groups, unions, fraternal or athletic groups, or [...] Answer Date Recorded PHQ-2 Score 2 05/25/2024 [facility] [place] of Occupat ional Health - Occupational Stress [...] your living situation today? I have a [facility] place to live 07/22/2023 Education Answer [...] st Contact Info) Description 06/14/2024 9:30 AM POLICE CLERK Comprehensive Visit Department of Orthopedic Surgery in [place], [place] [address] [place] [address] Jake Rahman M.B.BTrentS. [address] [place] [address] 06/21/2024 9:15 AM POLICE CLERK Procedure visit Department of Urology in [place], [place] [address] [place] [phone] Jack Galvez M.D. [address] [place] [phone] documented as of this encounter Visit Diagnoses Diagnosis Pain Thumb Right documented in this encounter Additional Health Concerns Assessment Noted Time PHQ-9 Depression Total Score: 9 07/19/19 23 11:57 AM POLICE CLERK documented as of this encounter Care Teams Auto Top Mechanic Relationship Specialty Start Date End Date Lula Ruiz M.D. [address] [place] [phone] PCP - General 10/31/23 documented as of this encounter
--- OUTSIDE RECORDS SUMMARY | 2024-06-12 19:50 | XMS_ITS | Clinical Summary ---
Author Organization [facility] Address [address] [place] [address] Care Team Providers Care Nitriles Lab Technician Name Role Phone Lula Ruiz M.D. Primary Care Provider + Source Comments Patient records contain information from all sites at [facility]. For routine questions regarding patient records, call [phone] during business hours, M-F 8:00 AM - 5:00 PM Central Time. Record requests for emergency care only can be directed to [phone] at any time.[facility] Allergies No known active allergies Medications [...] (08/20/2022): Added automatically from request for surgery [id number] Pain Foot Right 02/22/2022 Gout 02/22/2022 Assessment & Plan (03/23/2024 4:25 PM FITNESS FLOOR ATTENDANT): Uric acid slightly above goal, however he [...] 02/02/2019 Assessment & Plan (03/23/2024 4:29 PM FITNESS FLOOR ATTENDANT): Reviewed labs today. Blood pressure overall is well controlled. Continue on lisinopril 20 mg daily and Lozol 2.5 mg daily. Hyperlipidemia Assessment & Plan (03/23/2024 4:26 PM FITNESS FLOOR ATTENDANT): Cholesterol levels well controlled. LDL at 79. Continue on rosuvastatin 10 mg daily. Chronic Obstructive Pulmonary Disease Abuse Tobacco Smoking Assessment & Plan (03/23/2024 4:28 PM FITNESS FLOOR ATTENDANT): Patient would like to try the nicotine patches again. Will send prescriptions for him to slowly taper due to long smoking history. Resolved Problems Problem Noted Date Diagnosed Date Resolved Date Follow Up Examination Postoperative Visit 09/17/2022 03/06/2023 Callus [place] 07/19/2021 08/21/2022 Need Vaccine Immunization Pneumococcal 07/19/2021 03/18/2022 Peritonitis Unspecified 06/22/202002/18 Sepsis 06/13/2020 03/18/2022 Pain Postoperative 06/02/2020 Preoperative Exam 05/31/2020 03/18/2022 Malignant Neoplasm Of Colon 05/30/2020 07/03/2020 Overview (05/30/2020): Added automatically from request for surgery [id number] Encounters Date Type Department Care Team Description 06/09/2024 Clinical Communication Department of Family Medicine, [facility], in [place], [place] [address] [place] [phone] Cristel Price 06/08/2024 2:34 PM FITNESS FLOOR ATTENDANT - 06/08/2024 11:59 PM FITNESS FLOOR ATTENDANT Emergency [facility] [address] [place] [phone] Hernia Inguinal (Primary Dx) Discharge Disposition: Home or Self Care 06/08/2024 Refill Department of Family Medicine, [facility], in [address] [address] Lula Ruiz M.D. Med Refill 06/03/2024 Refill Department of [facility], [facility], in [address] [address] Celeste Romero APRN, C.N.P., D.N.P. Med Refill 06/01/2024 Refill Department of [facility], [facility], in [address] [address] Lula Ruiz M.D. Med Refill 05/31/2024 9:30 AM FITNESS FLOOR ATTENDANT Office Visit Department of Family [facility], [facility], in [address] [address] Trish Cardoso APRN, C.N.P. Preoperative Exam (Primary Dx) 05/31/2024 8:45 AM FITNESS FLOOR ATTENDANT Office Visit Department of Urology in [address] [address] Jack Galvez M.D. 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 Med Refill 04/28/2024 Refill Department of Family Medicine, [facility], in [address] [address] Dottie Pavon M.D. Med Refill 04/13/2024 4:19 PM FITNESS FLOOR ATTENDANT - 04/13/2024 11:59 PM FITNESS FLOOR ATTENDANT Hospital Encounter Department of Radiology in [address] [address] Celeste Romero APRN C.N.PTrent, D.N.P. Pain Thumb Right Discharge Disposition: Home or Self Care 04/07/2024 Refill Department of Family Medicine, [facility], in [address] [address] Lula Ruiz M.D. Med Refill 04/06/2024 Refill Department of Family Medicine, [facility], in [address] [address] Celeste Romero APRN C.N.P., D.N.P. Med Refill 03/31/2024 Refill Department of Family Medicine, [facility], in [address] [place] [address] Dottie Pavon M.D. Med Refill 03/24/2024 Refill Department of Family Medicine, [facility], in [address] [address] Lula Ruiz M.D. Med Refill 03/23/2024 3:30 PM FITNESS FLOOR ATTENDANT Comprehensive Visit Department of Family Medicine, [facility], in [address] [address] Celeste Romero APRN, C.N.P., D.N.P. Pain Thumb Right (Primary Dx); Gout; Abuse Tobacco Smoking; Malnutrition Severe Protein-Calorie (HCC); Hyperlipidemia; Hypertension Essential Primary 03/21/2024 12:47 PM FITNESS FLOOR ATTENDANT - 03/21/2024 11:59 PM FITNESS FLOOR ATTENDANT Hospital Encounter Department of Laboratory Medicine in [place], [place] [address] [place] [address] Lula Riuz M.D. Hypertension Essential Primary; Malnutrition Severe Protein-Calorie [...] 0.6 oz pu re alcohol) Daily caffeine [facility] Utilities Answer Date Recorded In the past 12 months has [facility] [employer], [employer], or water [employer] threatened to shut off services in your [...] often do you attend chur ch or jewish services? Never 07/13/2022 Do you belong to [...] your living situation today? I have a [facility] place to live 07/22/2023 Education Answer [...] Comments Blood Pressure 102/65 05/31/2024 9:07 AM FITNESS FLOOR ATTENDANT Pulse 80 05/31/2024 9:07 AM FITNESS FLOOR ATTENDANT Temperature 37.3 C (99.1 F) 05/31/2024 9:07 AM FITNESS FLOOR ATTENDANT Respiratory Rate 26 05/24/2023 10:46 PM FITNESS FLOOR ATTENDANT Oxygen Saturation 100% 05/25/2023 12:15 AM FITNESS FLOOR ATTENDANT Inhaled Oxygen Concentration - - Weight 65.6 kg (144 lb 10 oz) 05/31/2024 9:07 AM FITNESS FLOOR ATTENDANT Height 177 cm (5' 9.69) 05/31/2024 9:07 AM FITNESS FLOOR ATTENDANT Body Mass Index 20.94 05/31/2024 9:07 AM FITNESS FLOOR ATTENDANT Plan of Treatment Upcoming Encounters Date Type Department Care Team (Late st Contact Info) Description 06/14/2024 9:30 AM FITNESS FLOOR ATTENDANT Comprehensive Visit Department of Orthopedic Surgery in [place], [place] [address] [place] [address] Jake Rahman M.B.B.S. [address] [place] [address] 06/21/2024 9:15 AM FITNESS FLOOR ATTENDANT Procedure visit Department of Urology in [place], [place] [address], [place] [address] Jack Galvez M.D. [address], [place] [address] Health Maintenance Due Date Last [...] this topic Medical Devices Implanted Type Area Grain Combine Driver Device Identifier Shelf Expiration Date Model / Serial / Lot [facility]p [facility] - [id number] Implanted:Qty : 1 on 08/29/2022 by Ángel Pack M.D. at [facility] Hardware e.g. pins/screws/ rods Left: Neck Ethicon [id number] / / Mitchell [employer]hn Seprafilm 5x6 - [id number] Implanted:Qty : 1 on 06/01/2020 by Narayan Phan M.D. at [facility] Mesh or Patch Right: Abdomen Lewis 10/21/2022 [id number] / / [id number] Mitchell [employer]hn Seprafilm 5x6 - [id number] Implanted:Qty : 1 on 06/04/2020 by Estelle Berger M.D. at [facility] Mesh or Patch Lewis 11/01/2022 [id number] / / [id number] Procedures Procedure Name Priority Date/Time Associated Diagnosis Comments DX CHEST AP OR PA AND LATERAL 2 VIEWS RAD - Semiurgent (Fast; most ED patients; some inpatients) 06/08/2024 5:24 PM FITNESS FLOOR ATTENDANT CT ABDOMEN PELVIS WITH IV CONTRAST RAD - Semiurgent (Fast; most ED patients; some inpatients) 06/08/2024 5:23 PM FITNESS FLOOR ATTENDANT DX THUMB RIGHT RAD - Routine (most inpatients and all outpatients) 04/13/2024 4:41 PM FITNESS FLOOR ATTENDANT Pain Thumb Right HEMOGLOBIN A1C, B Routine 03/21/2024 12:58 PM FITNESS FLOOR ATTENDANT Screening Examination Diabetes Mellitus LIPID PANEL, S Routine 03/21/2024 12:58 PM FITNESS FLOOR ATTENDANT Hyperlipidemia URIC ACID, S/P Routine 03/21/2024 12:58 PM FITNESS FLOOR ATTENDANT Gout COMPREHENSIVE METABOLIC PANEL, S/P Routine 03/21/2024 12:58 PM FITNESS FLOOR ATTENDANT Hypertension Essential Primary Malnutrition Severe Protein-Calorie (HCC) COLONOSCOPY Routine 03/26/2022 8:31 AM FITNESS FLOOR ATTENDANT Blood In Stool HCV AB SCRN W/REFLEX TO HCV PCR, S Routine 12/31/2018 5:21 PM CDT Screening Test Laboratory from Last 3 Months or Most Recently Relevant to Health Maintenance Results * DX Chest AP or PA and Lateral 2 Views (06/08/2024 5:24 PM FITNESS FLOOR ATTENDANT) Anatomical Region Laterality Modality Chest, Thoracic RST LOS, Tho racic ARZ LOS, Thoracic FLA LOS N/A Digital Radiography Impressions 06/08/2024 5:49 PM FITNESS FLOOR ATTENDANT Comparison 03/13/2023. Normal heart size and cardiomediastinal silhouette. No focal consolidation, pleural effusions, or appreciable pneumothorax. Small nodular opacity within the right mid lung, unchanged since 06/05/2021 and may represent nipple shadow versus a small pulmonary nodule (likely benign given stability over time). Narrative 06/08/2024 5:49 PM FITNESS FLOOR ATTENDANT EXAM: DX CHEST AP OR PA AND [...] Pelvis with IV Contrast (06/08/2024 5:23 PM FITNESS FLOOR ATTENDANT) Anatomical Region Laterality Modality Abdomen, Pelvis, Abdominal R ST LOS, Abdominal ARZ LOS, Abdominal FLA LOS N/A Computed Tomography 06/08/2024 5:21 PM FITNESS FLOOR ATTENDANT Impressions 06/08/2024 5:47 PM FITNESS FLOOR ATTENDANT 1. No ventral abdominal wall or significant inguinal hernias. 2. Mild nonspecific urinary bladder wall thickening versus underdistention, potentially on the basis of chronic outlet obstruction given prostatomegaly measuring 5.4 cm transverse. 3. Possible mild nonspecific enteritis. Narrative 06/08/2024 5:47 PM FITNESS FLOOR ATTENDANT EXAM: CT ABDOMEN PELVIS WITH IV CONTRAST [...] * DX Thumb Right (04/13/2024 4:41 PM FITNESS FLOOR ATTENDANT) Anatomical Region Laterality Modality Upper Extremity, Fingers, Mu sculoskeletal RST LOS, Musculoskeletal ARZ LOS, Muskuloskeletal FLA LOS Right Digit al Radiography Impressions 04/13/2024 4:58 PM FITNESS FLOOR ATTENDANT Right thumb: Moderate chronic degenerative changes of the first CMC joint. Mild degenerative changes in the IP joint. Negative for acute fracture or dislocation. No cortical erosions. No radiopaque foreign bodies. Comparison, 03/13/2023. Narrative 04/13/2024 4:58 PM FITNESS FLOOR ATTENDANT EXAM: DX THUMB RIGHT Procedure Note Arslan Orozco M.B., Larry, MTed. - 04/13/2024 EXAM: DX THUMB RIGHT IMPRESSION: Right thumb: Moderate chronic degenerative changes of the first CMC joint.Mild degenerative changes in the IP joint. Negative for acute fracture ordislocation. No cortical erosions. No radiopaque foreign bodies.Comparison, 03/13/2023. Celeste Romero APRN, C.N.P., D.N.P. IMG DIAGNO STIC IMAGING PROCEDURES Final Result * Lipid Panel (03/21/2024 12:58 PM FITNESS FLOOR ATTENDANT) Pathologist [facility] Triglycerides 102 mg/dL 03/22/2024 8:39 AM FITNESS FLOOR ATTENDANT OWAT Comment: ----REFERENCE VALUE---- Normal: <150 mg/dL Borderline High: 150-199 mg/dL High: 200-499 mg/dL Very High: > or =500 mg/dL Cholesterol, Total 155 mg/dL 2023 8:39 AM FITNESS FLOOR ATTENDANT OWAT Comment: ----REFERENCE VALUE---- Desirable: < 200 mg/dL Borderline High: 200 - 239 mg/dL High: > or = 240 mg/dL Cholesterol, LDL, Calculated 79 mg/dL 03/22/2024 8:39 AM FITNESS FLOOR ATTENDANT OWAT Comment: ----REFERENCE VALUE---- Desirable: <100 mg/dL Above Desirable: 100-129 mg/dL Borderline High: 130-159 mg/dL High: 160-189 mg/dL Very High: >=190 mg/dL ----ADDITIONAL INFORMATION---- LDL cholesterol calculated using the Schmidt/NIH equation. Cholesterol, HDL 57 >=40 mg/dL 03/22/20 8:39 AM FITNESS FLOOR ATTENDANT OWAT Cholesterol, Non-HDL, Calculated 98 mg/dL 03/22/2024 8:39 AM FITNESS FLOOR ATTENDANT OWAT Comment: ----REFERENCE VALUE---- Desirable: <130 mg/dL Above Desirable: 130-159 mg/dL Borderline High: 160-189 mg/dL High: 190-219 mg/dL Very High: > or =220 mg/dL Fasting (8 HR or more) Yes 03/21/2024 12:58 PM FITNESS FLOOR ATTENDANT OWAT Blood (Blood, Venous) 03/21/2024 12:58 PM FITNESS FLOOR ATTENDANT 03/21/2024 1:29 PM FITNESS FLOOR ATTENDANT us Lula Ruiz M.D. LAB BLOOD ADD-ON Final R esult Performing Organization Address City/[facility]/ZIP Co de Phone Number [facility] [address] [place] [address], [facility] OWAT [facility] [place] [address] [place] [address] * Uric Acid (03/21/2024 12:58 PM FITNESS FLOOR ATTENDANT) Uric Acid, P 6.1 3.7 - 8.0 mg/dL 03/21/2024 7:25 PM FITNESS FLOOR ATTENDANT AUST Blood (Blood, Venous) 03/21/2024 12:58 PM FITNESS FLOOR ATTENDANT 03/21/2024 7:12 PM FITNESS FLOOR ATTENDANT us Lula Ruiz M.D. LAB BLOOD ADD-ON Final R esult [facility] [address] [place] [address], [facility] AUST [facility] [address] [place] [address] * Hemoglobin A1c (03/21/2024 12:58 PM FITNESS FLOOR ATTENDANT) Hemoglobin A1c, B 5.5 4.2 - 5.6 % 03/22/2024 8:43 AM FITNESS FLOOR ATTENDANT OWAT Blood (Blood, Venous) 03/21/2024 12:58 PM FITNESS FLOOR ATTENDANT 03/21/2024 1:29 PM FITNESS FLOOR ATTENDANT us Lula Ruiz M.D. LAB BLOOD ADD-ON Final R esult [facility] [address] [place] [address], [facility] OWAT [facility] in [place] [address] [place] [address] * (ABNORMAL) Comprehensive Metabolic Panel (03/21/2024 12:58 PM FITNESS FLOOR ATTENDANT) Potassium, P 3.9 3.6 - 5.2 mmol/L 03/22/2024 8:39 AM FITNESS FLOOR ATTENDANT OWAT Sodium, P 137 135 - 145 mmol/L 03/22/2024 8:39 AM FITNESS FLOOR ATTENDANT OWAT Chloride, P 96(L) 98 - 107 mmol/L 03/22/2024 8:39 AM FITNESS FLOOR ATTENDANT OWAT Bicarbonate, P 28 22 - 29 mmol/L 03/22/2024 8:39 AM FITNESS FLOOR ATTENDANT OWAT Anion Gap, P 13 7 - 15 03/22/2024 8:39 AM FITNESS FLOOR ATTENDANT OWAT BUN (Blood Urea Nitrogen), P 11 8 - 24 mg/dL 03/22/2024 8:39 AM FITNESS FLOOR ATTENDANT OWAT Creatinine 0.83 0.74 - 1.35 mg/dL 03/22/2024 8:39 AM FITNESS FLOOR ATTENDANT OWAT Estimated GFR (eGFR) >90 >=60 mL/min/BS A 03/22/2024 8:39 AM FITNESS FLOOR ATTENDANT OWAT Comment: Estimated GFR calculated using the 2020 CKD_EPI creatinine equation. Calcium, Total, P 9.6 8.8 - 10.2 mg/dL 03/22/2024 8:39 AM FITNESS FLOOR ATTENDANT OWAT Glucose, P 89 70 - 140 mg/dL 03/22/2024 8:39 AM FITNESS FLOOR ATTENDANT OWAT Protein, Total, P 7.5 6.3 - 7.9 g/dL 03/22/2024 8:39 AM FITNESS FLOOR ATTENDANT OWAT Albumin, P 4.7 3.5 - 5.0 g/dL 03/22/2024 8:39 AM FITNESS FLOOR ATTENDANT OWAT Aspartate Aminotransferase (AST), P 28 8 - 48 U/L 03/22/2024 8:39 AM FITNESS FLOOR ATTENDANT OWAT Alkaline Phosphatase, P 118 40 - 129 U/L 03/22/2024 8:39 AM FITNESS FLOOR ATTENDANT OWAT Alanine Aminotransferase (ALT), P 22 7 - 55 U/L 03/22/2024 8:39 AM FITNESS FLOOR ATTENDANT OWAT Bilirubin, Total, P 0.4 0.0 - 1.2 mg/dL 03/22/2024 8:39 AM FITNESS FLOOR ATTENDANT OWAT Blood (Blood, Venous) 03/21/2024 12:58 PM FITNESS FLOOR ATTENDANT 03/21/2024 1:29 PM FITNESS FLOOR ATTENDANT us Lula Ruiz M.D. LAB BLOOD ADD-ON Final R esult [facility] [address] [place] [address], [place] OWAT [facility] [place] [address] [place] [address] * HCV Ab Scrn w/Reflex to HCV PCR, Serum (12/31/2018 5:21 PM CDT) HCV Ab Screen, S Negative Negative 01/01/2019 8:23 AM CDT Comment:Xcgupl-za-[id number] rat io is <1.00. Blood (Blood, Venous) 12/31/2018 5:21 PM CDT 01/01/2019 7:00 AM CDT us Luke Baca M.D. LAB MICROBIOLOGY - BLOOD ORDERA BLES Final Result [facility] [address] [place] [id number] from Last 3 Months or Most Recently Relevant to Health Maintenance Insurance [employer] [place] [address] Advance Directives For more information, please contact: [phone] * Full Code (Latest Code Status on [...] Answer Comments Full Code: Discussed Care Teams Nitriles Lab Technician Relationship Specialty Start Date End Date Lula Ruiz M.D. [address] [place] [phone] PCP - General 10/31/23
--- OUTSIDE RECORDS SUMMARY | 2024-06-12 19:50 | XMS_ITS | Encounter Summary ---
Author Organization [facility] Address [address] [place] [address] Care Team Providers Care Pharmacy Salesperson Name Role Phone Lula Ruiz M.D. Primary Care Provider + Encounter Details Date Type Department Care Team (Late st Contact Info) Description 06/09/2024 Clinical Communication Department of Family Medicine, [facility], in [place], [place] [address] [place] [phone] Cristel Price Social History Tobacco Use Types Packs/Day Years Used Date Smoking Tobacco: Every Day Cigarettes 0.8 25 Passive Smoke Exposure: Current Smokeless Tobacco: Never Alcohol Use Standard Drinks/Week Comments Yes 30 (1 standard drink = 0.6 oz pu re alcohol) Daily caffeine [facility] Utilities Answer Date Recorded In the past 12 months has [facility] [employer], [employer], oil, or water [employer] threatened to shut off services in your [...] often do you attend chur ch or caodaism services? Never 07/13/2022 Do you belong to any clubs o r organizations such as zoroastrian groups, unions, fraternal or athletic groups, or [...] Answer Date Recorded PHQ-2 Score 2 05/25/2024 [facility] of Occupat ional Health - Occupational Stress [...] your living situation today? I have a [facility] place to live 07/22/2023 Education Answer [...] st Contact Info) Description 06/14/2024 9:30 AM PROPERTY MANAGEMENT ASSISTANT Comprehensive Visit Department of Orthopedic Surgery in [place], [place] [address] [place] [address] Jake Rahman M.B.B.S. [address] [place] [address] 06/21/2024 9:15 AM PROPERTY MANAGEMENT ASSISTANT Procedure visit Department of Urology in [place], [place] [address] [place] [phone] Jack Galvez M.D. [address] [place] [address] documented as of this encounter Visit Diagnoses Not on filedocumented in this encounter Additional Health Concerns Assessment Noted Time PHQ-9 Depression Total Score: 9 07/19/19 23 11:57 AM PROPERTY MANAGEMENT ASSISTANT documented as of this encounter Care Teams Pharmacy Salesperson Relationship Specialty Start Date End Date Lula Ruiz M.D. [address] [phone] PCP - General 10/31/23 documented as of this encounter
--- OUTSIDE RECORDS SUMMARY | 2024-06-12 19:50 | XMS_ITS | Encounter Summary ---
Author Organization [facility] Address [address] [place] [address] Care Team Providers Care Employee Communications Specialist Name Role Phone Lula Ruiz M.D. Primary Care Provider + Reason for Visit * Reason Onset Date Comments Med Refill 06/01/2024 Encounter Details Date Type Department Care Team (Late st Contact Info) Description 06/01/2024 Refill Department of Family Medicine, [facility], in [place], [place] [address] [address] Lula Ruiz M.D. [address] [place] [address] [address] Med Refill Social History Tobacco Use Types Packs/Day Years Used Date Smoking Tobacco: Every Day Cigarettes 0.8 25 Passive Smoke Exposure: Current Smokeless Tobacco: Never Tobacco Cessation:Ready to Q uit: Not Asked; Counseling Given: Not Answered Alcohol Use Standard Drinks/Week Comments Yes 30 (1 standard drink = 0.6 oz pu re alcohol) Daily caffeine [facility] Utilities Answer Date Recorded In the past 12 months has [employer], gas, oil, or water [employer] threatened to shut off services in your [...] often do you attend chur ch or mosque services? Never 07/13/2022 Do you belong to any clubs o r organizations such as yarsani groups, unions, fraternal or athletic groups, or [...] Answer Date Recorded PHQ-2 Score 2 05/25/2024 [facility] of Occupat ional Health - Occupational Stress [...] your living situation today? I have a [facility] place to live 07/22/2023 Education Answer [...] Licha Anna L.P.NTrent - 06/08/2024 3:49 PM CENTREX RADIO OPERATOR I called [facility] and they informed me that Vahid's insurance will cover tamsulosin 0.4 mgonce daily for a 30 day supply at a time, but they will not cover it for a 90 day supply. REX RADIO OPERATOR * Telephone Encounter - Lula Ruiz M.D. - 06/06/2024 11:25 AM CENTREX RADIO OPERATOR Please call the patient and verify whether he was able to brass pickler the Rx for tamsulosin 0.4 mg twice daily. It looks like there were two prescriptions sent by Dr. Galvez on the same day for different doses. This one was denied, but we need to see if the other went through. Please find out. REX RADIO OPERATOR * Telephone Encounter - Jade Moreland - 06/01/2024 11:19 AM CST Images from the original note were not included. Needs Review: Med Refill Team is unable to forward request to provider. Drug Change Request Primary Provider: Lula Ruiz M.D. REX RADIO OPERATOR documented in this encounter Plan of Treatment Upcoming Encounters Date Type Department Care Team (Late st Contact Info) Description 06/14/2024 9:30 AM CENTREX RADIO OPERATOR Comprehensive Visit Department of Orthopedic Surgery in [place], [place] [address] [place] [address] Jake Rahman M.B.B.S. [address] [place] [address] 06/21/2024 9:15 AM CENTREX RADIO OPERATOR Procedure visit Department of Urology in [place], [place] [address] [place] [address] Jack Galvez M.D. [address], [place] [address] documented as of this encounter Visit Diagnoses Not on filedocumented in this encounter Additional Health Concerns Assessment Noted Time PHQ-9 Depression Total Score: 9 07/19/19 23 11:57 AM CENTREX RADIO OPERATOR documented as of this encounter Care Teams Employee Communications Specialist Relationship Specialty Start Date End Date Lula Ruiz M.D. [address] [place] [address] [address] PCP - General 10/31/23 documented as of this encounter
--- OUTSIDE RECORDS SUMMARY | 2024-06-12 19:50 | XMS_ITS ---
Author Organization [facility] Address [address] [place] [address] Care Team Providers Care Diagram Clerk Name Role Phone Lula Ruiz M.D. Primary Care Provider + Active Problems * This document contains information received from the source organization and may not represent a complete record from that organization. Problem Noted Date Diagnosed Date Primary Osteoarthritis Wrist Left 06/17/2023 Tumor Warthin's 08/20/2022 Overview (08/20/2022): Added automatically from request for surgery [id number] Pain Foot Right 02/22/2022 Gout 02/22/2022 Assessment & Plan (03/23/2024 4:25 PM CONTRACT RECRUITER): Uric acid slightly above goal, however he [...] 02/02/2019 Assessment & Plan (03/23/2024 4:29 PM CONTRACT RECRUITER): Reviewed labs today. Blood pressure overall is well controlled. Continue on lisinopril 20 mg daily and Lozol 2.5 mg daily. Hyperlipidemia Assessment & Plan (03/23/2024 4:26 PM CONTRACT RECRUITER): Cholesterol levels well controlled. LDL at 79. Continue on rosuvastatin 10 mg daily. Chronic Obstructive Pulmonary Disease Abuse Tobacco Smoking Assessment & Plan (03/23/2024 4:28 PM CONTRACT RECRUITER): Patient would like to try the nicotine [...] Up Examination Postoperative Visit 09/17/2022 03/06/2023 Callus [place] 07/19/2021 08/21/2022 Need Vaccine Immunization Pneumococcal 07/19/2021 03/18/2022 Peritonitis Unspecified 06/22/2020 1005/2021 Sepsis 06/13/2020 03/18/2022 Pain Postoperative 06/02/2020 Preoperative Exam 05/31/2020 03/18/2022 Malignant Neoplasm Of Colon 05/30/2020 07/03/2020 Overview (05/30/2020): Added automatically from request for surgery [id number]
--- OUTSIDE RECORDS SUMMARY | 2024-06-12 19:50 | XMS_ITS | Referral Summary ---
Author Organization [facility] Address [address] [place] [address] Care Team Providers Care Clinical Therapist Name Role Phone Lula Ruiz M.D. Primary Care Provider + Source Comments Patient records contain information from all sites at [facility]. For routine questions regarding patient records, call [phone] during business hours, M-F 8:00 AM - 5:00 PM Central Time. Record requests for emergency care only can be directed to [phone] at any time.[facility] Encounters Date Type Department Care Team Description 06/09/2024 Clinical Communication Department of Family Medicine, [facility], in [place], [place] [address] [phone] Cristel Price 06/08/2024 Refill Department of Family Medicine, [facility], in [place], [place] [address] [phone] Lula Ruiz M.D. Med Refill 06/08/2024 2:34 PM RESPIRATORY TECHNICIAN - 06/08/2024 11:59 PM RESPIRATORY TECHNICIAN Emergency [facility] [address] [place] [phone] Hernia Inguinal (Primary Dx) Discharge Disposition: Home or Self Care 06/03/2024 Refill Department of Family Medicine, [facility], in [place], [place] [address] [phone] Celeste Romero APRN C.N.P., D.N.P. Med Refill 06/01/2024 Refill Department of Family Medicine, [facility], in [address] [address] Lula Ruiz M.D. Med Refill 05/31/2024 8:45 AM RESPIRATORY TECHNICIAN Office Visit Department of Urology in [address] [address] Jack Galvez M.D. 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 Preoperative Exam (Primary Dx) 05/11/2024 Refill Department of Family Medicine, [facility], in [address] [address] Celeste Romero APRN C.N.P., D.N.P. Med Refill 04/28/2024 Refill Department of Family [facility], [facility], in [address] [address] Dottie Pavon M.D. Med Refill 04/13/2024 4:19 PM RESPIRATORY TECHNICIAN - 04/13/2024 11:59 PM RESPIRATORY TECHNICIAN Hospital Encounter Department of Radiology in [address] [address] Celeste Romero APRN, C.N.P., D.N.P. Pain Thumb Right Discharge Disposition: Home or Self Care 04/07/2024 Refill Department of Family Medicine, [facility], in [address] [address] Lula Ruiz M.D. Med Refill 04/06/2024 Refill Department of Family Medicine, [facility], in [address] [address] Celeste Romero APRN C.N.PTrent, D.N.P. Med Refill 03/31/2024 Refill Department of Family Medicine, [facility], in [address] [address] Dottie Pavon M.D. Med Refill 03/24/2024 Refill Department of Family [facility], [facility], in [address] [address] Lula Ruiz M.D. Med Refill 03/23/2024 3:30 PM RESPIRATORY TECHNICIAN Comprehensive Visit Department of [facility], [facility], in [address] [address] Celeste Romero APRN, C.N.P., D.N.P. Pain Thumb Right (Primary Dx); Gout; Abuse Tobacco Smoking; Malnutrition Severe Protein-Calorie (HCC); Hyperlipidemia; Hypertension Essential Primary 03/21/2024 12:47 PM RESPIRATORY TECHNICIAN - 03/21/2024 11:59 PM RESPIRATORY TECHNICIAN Hospital Encounter Department of Laboratory Medicine in [address] [phone] Lula Ruiz M.D. Hypertension Essential Primary; Malnutrition [...] (08/20/2022): Added automatically from request for surgery [id number] Pain Foot Right 02/22/2022 Gout 02/22/2022 Assessment & Plan (03/23/2024 4:25 PM RESPIRATORY TECHNICIAN): Uric acid slightly above goal, however he [...] 02/02/2019 Assessment & Plan (03/23/2024 4:29 PM RESPIRATORY TECHNICIAN): Reviewed labs today. Blood pressure overall is well controlled. Continue on lisinopril 20 mg daily and Lozol 2.5 mg daily. Hyperlipidemia Assessment & Plan (03/23/2024 4:26 PM RESPIRATORY TECHNICIAN): Cholesterol levels well controlled. LDL at 79. Continue on rosuvastatin 10 mg daily. Chronic Obstructive Pulmonary Disease Abuse Tobacco Smoking Assessment & Plan (03/23/2024 4:28 PM RESPIRATORY TECHNICIAN): Patient would like to try the nicotine patches again. Will send prescriptions for him to slowly taper due to long smoking history. Resolved Problems Problem Noted Date Diagnosed Date Resolved Date Follow Up Examination Postoperative Visit 09/17/2022 03/06/2023 Callus Hope 07/19/2021 08/21/2022 Need Vaccine Immunization Pneumococcal 07/19/2021 03/18/2022 Peritonitis Unspecified 06/22/2020 103 05/2021 Sepsis 06/13/2020 03/18/2022 Pain Postoperative 06/02/2020 3 Preoperative Exam 05/31/2020 03/18/2022 Malignant Neoplasm Of Colon 05/30/2020 07/03/2020 Overview (05/30/2020): Added automatically from request for surgery [id number] Immunizations Immunization Administration Dates Next Due RZV [...] 0.6 oz pu re alcohol) Daily caffeine [employer] Utilities Answer Date Recorded In the past 12 months has [employer], gas, oil, or water [employer] threatened to shut off services in your [...] any clubs o r organizations such as druze groups, unions, fraternal or athletic groups, or [...] Answer Date Recorded PHQ-2 Score 2 05/25/2024 [facility]at [facility] - Occupational Stress Questionnaire Answer Date Recorded [...] your living situation today? I have a [facility] to live 07/22/2023 Education Answer Date [...] Comments Blood Pressure 102/65 05/31/2024 9:07 AM RESPIRATORY TECHNICIAN Pulse 80 05/31/2024 9:07 AM RESPIRATORY TECHNICIAN Temperature 37.3 C (99.1 F) 05/31/2024 9:07 AM RESPIRATORY TECHNICIAN Respiratory Rate 26 05/24/2023 10:46 PM RESPIRATORY TECHNICIAN Oxygen Saturation 100% 05/25/2023 12:15 AM RESPIRATORY TECHNICIAN Inhaled Oxygen Concentration - - Weight 65.6 kg (144 lb 10 oz) 05/31/2024 9:07 AM RESPIRATORY TECHNICIAN Height 177 cm (5' 9.69) 05/31/2024 9:07 AM RESPIRATORY TECHNICIAN Body Mass Index 20.94 05/31/2024 9:07 AM RESPIRATORY TECHNICIAN Plan of Treatment Upcoming Encounters Date Type Department Care Team (Late st Contact Info) Description 06/14/2024 9:30 AM RESPIRATORY TECHNICIAN Comprehensive Visit Department of Orthopedic Surgery in [place], [place] [address] [place] [phone] Jake Rahman M.B.BTrentS. 200 [place] [phone] 06/21/2024 9:15 AM RESPIRATORY TECHNICIAN Procedure visit Department of Urology in [place], [place] [address] [place] [address] Jack Galvez M.D. [address] [place] [address] Medical Devices Implanted Type Area Associate Account Executive Device Identifier Shelf Expiration Date Model / Serial / Lot Aug Lgs Intnl 9.0 - [id number] Implanted:Qty : 1 on 08/29/2022 by Ángel Pack M.D. at [facility] Hardware e.g. pins/screws/ rods Left: Neck [employer]icon [id number] / / Mitchell [employer]hn Seprafilm 5x6 - [id number] Implanted:Qty : 1 on 06/01/2020 by Narayan Phan M.D. at [facility] Mesh or Patch Right: Abdomen Lewis 10/21/2022 [id number] / / [id number] [employer]ra[employer] 5x6 - [id number] Implanted:Qty : 1 on 06/04/2020 by Estelle Berger M.D. at [facility] Mesh or Patch Lewis 11/01/2022 [id number] / / [id number] Procedures Procedure Name Priority Date/Time Associated Diagnosis Comments DX CHEST AP OR PA AND LATERAL 2 VIEWS RAD - Semiurgent (Fast; most ED patients; some inpatients) 06/08/2024 5:[address] ABDOMEN PELVIS WITH IV CONTRAST RAD - Semiurgent (Fast; most ED patients; some inpatients) 06/08/2024 5:23 PM RESPIRATORY TECHNICIAN DX THUMB RIGHT RAD - Routine (most inpatients and all outpatients) 04/13/2024 4:41 PM RESPIRATORY TECHNICIAN Pain Thumb Right HEMOGLOBIN A1C, B Routine 03/21/2024 12:58 PM RESPIRATORY TECHNICIAN Screening Examination Diabetes Mellitus LIPID PANEL, S Routine 03/21/2024 12:58 PM RESPIRATORY TECHNICIAN Hyperlipidemia URIC ACID, S/P Routine 03/21/2024 12:58 PM RESPIRATORY TECHNICIAN Gout COMPREHENSIVE METABOLIC PANEL, S/P Routine 03/21/2024 12:58 PM RESPIRATORY TECHNICIAN Hypertension Essential Primary Malnutrition Severe Protein-Calorie (HCC) COLONOSCOPY Routine 03/26/2022 8:31 AM RESPIRATORY TECHNICIAN Blood In Stool HCV AB SCRN W/REFLEX TO HCV PCR, S Routine 12/31/2018 5:21 PM CDT Screening Test Laboratory from Last 3 Months or Most Recently Relevant to Health Maintenance Results * DX Chest AP or PA and Lateral 2 Views (06/08/2024 5:24 PM RESPIRATORY TECHNICIAN) Anatomical Region Laterality Modality Chest, Thoracic RST LOS, Tho racic ARZ LOS, Thoracic FLA LOS N/A Digital Radiography Impressions 06/08/2024 5:49 PM RESPIRATORY TECHNICIAN Comparison 03/13/2023. Normal heart size and cardiomediastinal silhouette. No focal consolidation, pleural effusions, or appreciable pneumothorax. Small nodular opacity within the right mid lung, unchanged since 06/05/2021 and may represent nipple shadow versus a small pulmonary nodule (likely benign given stability over time). Narrative 06/08/2024 5:49 PM RESPIRATORY TECHNICIAN EXAM: DX CHEST AP OR PA AND [...] Pelvis with IV Contrast (06/08/2024 5:23 PM RESPIRATORY TECHNICIAN) Anatomical Region Laterality Modality Abdomen, Pelvis, Abdominal R ST LOS, Abdominal ARZ LOS, Abdominal FLA LOS N/A Computed Tomography 06/08/2024 5:21 PM RESPIRATORY TECHNICIAN Impressions 06/08/2024 5:47 PM RESPIRATORY TECHNICIAN 1. No ventral abdominal wall or significant inguinal hernias. 2. Mild nonspecific urinary bladder wall thickening versus underdistention, potentially on the basis of chronic outlet obstruction given prostatomegaly measuring 5.4 cm transverse. 3. Possible mild nonspecific enteritis. Narrative 06/08/2024 5:47 PM RESPIRATORY TECHNICIAN EXAM: CT ABDOMEN PELVIS WITH IV CONTRAST [...] * DX Thumb Right (04/13/2024 4:41 PM RESPIRATORY TECHNICIAN) Anatomical Region Laterality Modality Upper Extremity, Fingers, Mu sculoskeletal RST LOS, Musculoskeletal ARZ LOS, Muskuloskeletal FLA LOS Right Digit al Radiography Impressions 04/13/2024 4:58 PM RESPIRATORY TECHNICIAN Right thumb: Moderate chronic degenerative changes of the first CMC joint. Mild degenerative changes in the IP joint. Negative for acute fracture or dislocation. No cortical erosions. No radiopaque foreign bodies. Comparison, 03/13/2023. Narrative 04/13/2024 4:58 PM RESPIRATORY TECHNICIAN EXAM: DX THUMB RIGHT Procedure Note Arslan [...] Result * Lipid Panel (03/21/2024 12:58 PM RESPIRATORY TECHNICIAN) Triglycerides 102 mg/dL 03/22/2024 8:39 AM RESPIRATORY TECHNICIAN OWAT Comment: ----REFERENCE VALUE---- Normal: <150 mg/dL Borderline High: 150-199 mg/dL High: 200-499 mg/dL Very High: > or =500 mg/dL Cholesterol, Total 155 mg/dL 2023 8:39 AM RESPIRATORY TECHNICIAN OWAT Comment: ----REFERENCE VALUE---- Desirable: < 200 mg/dL Borderline High: 200 - 239 mg/dL High: > or = 240 mg/dL Cholesterol, LDL, Calculated 79 mg/dL 03/22/2024 8:39 AM RESPIRATORY TECHNICIAN OWAT Comment: ----REFERENCE VALUE---- Desirable: <100 mg/dL Above Desirable: 100-129 mg/dL Borderline High: 130-159 mg/dL High: 160-189 mg/dL Very High: >=190 mg/dL ----ADDITIONAL INFORMATION---- LDL cholesterol calculated using the Schmidt/NIH equation. Cholesterol, HDL 57 >=40 mg/dL 03/22/20 8:39 AM RESPIRATORY TECHNICIAN OWAT Cholesterol, Non-HDL, Calculated 98 mg/dL 03/22/2024 8:39 AM RESPIRATORY TECHNICIAN OWAT Comment: ----REFERENCE VALUE---- Desirable: <130 mg/dL Above Desirable: 130-159 mg/dL Borderline High: 160-189 mg/dL High: 190-219 mg/dL Very High: > or =220 mg/dL Fasting (8 HR or more) Yes 03/21/2024 12:58 PM RESPIRATORY TECHNICIAN OWAT Blood (Blood, Venous) 03/21/2024 12:58 PM RESPIRATORY TECHNICIAN 03/21/2024 1:29 PM RESPIRATORY TECHNICIAN us Lula Ruiz M.D. LAB BLOOD ADD-ON Final R esult Performing Organization Address City/[facility]/ZIP Co de Phone Number [facility] [address] [place] [address], [place] OWAT [facility] in [place] [address] [place] [address] * Uric Acid (03/21/2024 12:58 PM RESPIRATORY TECHNICIAN) Pathologist [facility] Uric Acid, P 6.1 3.7 - 8.0 mg/dL 03/21/2024 7:25 PM RESPIRATORY TECHNICIAN AUST Blood (Blood, Venous) 03/21/2024 12:58 PM RESPIRATORY TECHNICIAN 03/21/2024 7:12 PM RESPIRATORY TECHNICIAN us Lula Ruiz M.D. LAB BLOOD ADD-ON Final R esult [facility] [address] [place] [address], [place] AUST [facility] [address] [place] [address] * Hemoglobin A1c (03/21/2024 12:58 PM RESPIRATORY TECHNICIAN) Pathologist [facility] Hemoglobin A1c, B 5.5 4.2 - 5.6 % 03/22/2024 8:43 AM RESPIRATORY TECHNICIAN OWAT Blood (Blood, Venous) 03/21/2024 12:58 PM RESPIRATORY TECHNICIAN 03/21/2024 1:29 PM RESPIRATORY TECHNICIAN us Lula Ruiz M.D. LAB BLOOD ADD-ON Final R esult [facility] [address] [place] [address], [place] OWAT [facility] [place] [address] [place] [address] * (ABNORMAL) Comprehensive Metabolic Panel (03/21/2024 12:58 PM RESPIRATORY TECHNICIAN) Potassium, P 3.9 3.6 - 5.2 mmol/L 03/22/2024 8:39 AM RESPIRATORY TECHNICIAN OWAT Sodium, P 137 135 - 145 mmol/L 03/22/2024 8:39 AM RESPIRATORY TECHNICIAN OWAT Chloride, P 96(L) 98 - 107 mmol/L 03/22/2024 8:39 AM RESPIRATORY TECHNICIAN OWAT Bicarbonate, P 28 22 - 29 mmol/L 03/22/2024 8:39 AM RESPIRATORY TECHNICIAN OWAT Anion Gap, P 13 7 - 15 03/22/2024 8:39 AM RESPIRATORY TECHNICIAN OWAT BUN (Blood Urea Nitrogen), P 11 8 - 24 mg/dL 03/22/2024 8:39 AM RESPIRATORY TECHNICIAN OWAT Creatinine 0.83 0.74 - 1.35 mg/dL 03/22/2024 8:39 AM RESPIRATORY TECHNICIAN OWAT Estimated GFR (eGFR) >90 >=60 mL/min/BS A 03/22/2024 8:39 AM RESPIRATORY TECHNICIAN OWAT Comment: Estimated GFR calculated using the 2020 CKD_EPI creatinine equation. Calcium, Total, P 9.6 8.8 - 10.2 mg/dL 03/22/2024 8:39 AM RESPIRATORY TECHNICIAN OWAT Glucose, P 89 70 - 140 mg/dL 03/22/2024 8:39 AM RESPIRATORY TECHNICIAN OWAT Protein, Total, P 7.5 6.3 - 7.9 g/dL 03/22/2024 8:39 AM RESPIRATORY TECHNICIAN OWAT Albumin, P 4.7 3.5 - 5.0 g/dL 03/22/2024 8:39 AM RESPIRATORY TECHNICIAN OWAT Aspartate Aminotransferase (AST), P 28 8 - 48 U/L 03/22/2024 8:39 AM RESPIRATORY TECHNICIAN OWAT Alkaline Phosphatase, P 118 40 - 129 U/L 03/22/2024 8:39 AM RESPIRATORY TECHNICIAN OWAT Alanine Aminotransferase (ALT), P 22 7 - 55 U/L 03/22/2024 8:39 AM RESPIRATORY TECHNICIAN OWAT Bilirubin, Total, P 0.4 0.0 - 1.2 mg/dL 03/22/2024 8:39 AM RESPIRATORY TECHNICIAN OWAT Blood (Blood, Venous) 03/21/2024 12:58 PM RESPIRATORY TECHNICIAN 03/21/2024 1:29 PM RESPIRATORY TECHNICIAN us Lula Ruiz M.D. LAB BLOOD ADD-ON Final R esult Performing Organization Address City/[facility]/ZIP Co de Phone Number [facility] [address] [place] [phone], [facility] OWAT [facility] [place] [address] [place] [address] * HCV Ab Scrn w/Reflex to HCV PCR, Serum (12/31/2018 5:21 PM CDT) HCV Ab Screen, S Negative Negative 01/01/2019 8:23 AM CDT Comment:Ejsobn-px-seiacj rat io is <1.00. Blood (Blood, Venous) 12/31/2018 5:21 PM CDT 01/01/2019 7:00 AM CDT us Luke Baca M.D. LAB MICROBIOLOGY - BLOOD ORDERA BLES Final Result [facility] [address] [place] [address] from Last 3 Months or Most Recently Relevant to Health Maintenance Insurance [facility] [employer] Advance Directives For more information, please contact: [phone] * Full Code (Latest Code Status on [...] Answer Comments Full Code: Discussed Care Teams Clinical Therapist Relationship Specialty Start Date End Date Lula Ruiz M.D. [address] [facility] [place] [phone] PCP - General 10/31/23
--- OUTSIDE RECORDS SUMMARY | 2024-06-12 19:50 | XMS_ITS | Encounter Summary ---
Author Organization [facility] Address [address] [place] [address] Care Team Providers Care Tmd Teacher Assistant Name Role Phone Lula Ruiz M.D. Primary Care Provider + Reason for Visit * Reason Comments Med Refill Encounter Details Date Type Department Care Team (Late st Contact Info) Description 05/11/2024 Refill Department of Family Medicine, [facility], in [place], [place] [address] [phone] Celeste Romero APRN, C.N.P., D.N.P. [address] [phone] Med Refill Social History Tobacco Use Types Packs/Day Years Used Date Smoking Tobacco: Every Day Cigarettes 0.8 25 Passive Smoke Exposure: Current Smokeless Tobacco: Never Alcohol Use Standard Drinks/Week Comments Yes 2 (1 standard drink = 0.6 oz pur e alcohol) Daily caffeine [facility] Utilities Answer Date Recorded In the past 12 months has [employer] electric, gas, oil, or water company threatened [...] often do you attend chur ch or presybeterian services? Never 07/13/2022 Do you belong to any clubs o r organizations such as rastafari groups, unions, fraternal or athletic groups, or [...] Answer Date Recorded PHQ-2 Score 2 06/01/2023 [facility] of Occupat ional Health - Occupational Stress [...] your living situation today? I have a [facility] place to live 07/22/2023 Education Answer Date [...] st Contact Info) Description 06/14/2024 9:30 AM ASSOCIATE PRODUCER Comprehensive Visit Department of Orthopedic Surgery in [place], [place] [address] [place] [address] Jake Rahman M.B.BTrentS. [address] [place] [address] 06/21/2024 9:15 AM ASSOCIATE PRODUCER Procedure visit Department of Urology in [place], [place] [address] [place] [phone] Jack Galvez M.D. [address] [place] [phone] documented as of this encounter Visit Diagnoses Diagnosis Pain Thumb Right documented in this encounter Additional Health Concerns Assessment Noted Time PHQ-9 Depression Total Score: 9 07/19/19 23 11:57 AM ASSOCIATE PRODUCER documented as of this encounter Care Teams Tmd Teacher Assistant Relationship Specialty Start Date End Date Lula Ruiz M.D. [address] [place] [phone] PCP - General 10/31/23 documented as of this encounter
--- OUTSIDE RECORDS SUMMARY | 2024-06-12 19:50 | XMS_ITS | Encounter Summary ---
Author Organization [facility] Address [address] [place] [address] Care Team Providers Care Wastewater Project Engineer Name Role Phone Lula Ruiz M.D. Primary Care Provider + Reason for Visit * Reason Comments HERNIA Encounter Details Date Type Department Care Team ([facility] st Contact Info) Description 06/08/2024 2:34 PM MANAGER EXPRESS - 06/08/2024 11:59 PM MANAGER EXPRESS Emergency [facility] [address] [place] [phone] Hernia Inguinal (Primary Dx) Discharge Disposition: Home or Self Care Social History Tobacco Use Types Packs/Day Years Used Date Smoking Tobacco: Every Day Cigarettes 0.8 25 Passive Smoke Exposure: Current Smokeless Tobacco: Never Alcohol Use Standard Drinks/Week Comments Yes 30 (1 standard drink = 0.6 oz pu re alcohol) Daily caffeine [facility] Utilities Answer Date Recorded In the past 12 months has [facility] [employer], oil, or water [employer] threatened to shut off services in your [...] How often do you attend chur or sabianist services? Never 07/13/2022 Do you belong to any clubs o r organizations such as gnosticism groups, unions, fraternal or athletic groups, or [...] Date Recorded PHQ-2 Score 2 05/25/2024 [facility] of Occupat ional Health - Occupational Stress [...] your living situation today? I have a [facility] place to live 07/22/2023 Education [...] st Contact Info) Description 06/14/2024 9:30 AM MANAGER EXPRESS Comprehensive Visit Department of Orthopedic Surgery in [place], [place] [address] [place] [address] Jake Rahman M.B.B.S. [address] [place] [address] 06/21/2024 9:15 AM MANAGER EXPRESS Procedure visit Department of Urology in [place], [place] [address] [place] [address] Jack Galvez M.D. [address] [place] [address] documented as of this encounter Procedures Procedure Name Priority Date/Time Associated Diagnosis Comments DX CHEST AP OR PA AND LATERAL 2 VIEWS RAD - Semiurgent (Fast; most ED patients; some inpatients) 06/08/2024 5:[address] ABDOMEN PELVIS WITH IV CONTRAST RAD - Semiurgent (Fast; most ED patients; some inpatients) 06/08/2024 5:23 PM MANAGER EXPRESS documented in this encounter Results * DX Chest AP or PA and Lateral 2 Views (06/08/2024 5:24 PM MANAGER EXPRESS) Anatomical Region Laterality Modality Chest, Thoracic RST LOS, Tho racic ARZ LOS, Thoracic FLA LOS N/A Digital Radiography Impressions 06/08/2024 5:49 PM MANAGER EXPRESS Comparison 03/13/2023. Normal heart size and cardiomediastinal silhouette. No focal consolidation, pleural effusions, or appreciable pneumothorax. Small nodular opacity within the right mid lung, unchanged since 06/05/2021 and may represent nipple shadow versus a small pulmonary nodule (likely benign given stability over time). Narrative 06/08/2024 5:49 PM MANAGER EXPRESS EXAM: DX CHEST AP OR PA AND [...] Pelvis with IV Contrast (06/08/2024 5:23 PM MANAGER EXPRESS) Anatomical Region Laterality Modality Abdomen, Pelvis, Abdominal R ST LOS, Abdominal ARZ LOS, Abdominal FLA LOS N/A Computed Tomography 06/08/2024 5:21 PM MANAGER EXPRESS Impressions 06/08/2024 5:47 PM MANAGER EXPRESS 1. No ventral abdominal wall or significant inguinal hernias. 2. Mild nonspecific urinary bladder wall thickening versus underdistention, potentially on the basis of chronic outlet obstruction given prostatomegaly measuring 5.4 cm transverse. 3. Possible mild nonspecific enteritis. Narrative 06/08/2024 5:47 PM MANAGER EXPRESS EXAM: CT ABDOMEN PELVIS WITH IV CONTRAST [...] 900 mL water Given 06/08/2024 5:14 PM MANAGER EXPRESS 100 mL Right Upper Arm sodium chloride 0.9 % flush 100 mL 100 mL, intravenous, Once, On Fri06/08/24 at 1730, For 1 dose Given 06/08/2024 5:14 PM MANAGER EXPRESS 75 mL Right Upper Arm sodium chloride 0.9 % injection 10 mL 10 mL, intravenous, As needed, line care, Starting on Fri06/08/24 at 1721 Given 06/08/2024 5:10 PM MANAGER EXPRESS 10 mL Right Upper Arm documented in this encounter Active and Recently Administered Medications Times are shown in MANAGER EXPRESS. Scheduled Medication Order 06/06/2024 06/07/2024 06/08/2024 sodium [...] Total Score: 9 07/19/19 23 11:57 AM MANAGER EXPRESS documented as of this encounter Care Teams Wastewater Project Engineer Relationship Specialty Start Date End Date Lula Ruiz M.D. [address] [phone] PCP - General 10/31/23 documented as of this encounter
--- OUTSIDE RECORDS SUMMARY | 2024-06-12 19:50 | XMS_ITS | Encounter Summary ---
Author Organization [facility] Address [address] [place] [address] Care Team Providers Care Rn Peritoneal Dialysis Name Role Phone Lula Ruiz M.D. Primary Care Provider + Reason for Visit * Reason Comments Med Refill Encounter Details Date Type Department Care Team (Late st Contact Info) Description 06/08/2024 Refill Department of Family Medicine, [facility], in [place], [place] [address] [place] [phone] Lula Ruiz M.D. [address] [place] [phone] Med Refill Social History Tobacco Use Types Packs/Day Years Used Date Smoking Tobacco: Every Day Cigarettes 0.8 25 Passive Smoke Exposure: Current Smokeless Tobacco: Never Alcohol Use Standard Drinks/Week Comments Yes 30 (1 standard drink = 0.6 oz pu re alcohol) Daily caffeine [facility] Utilities Answer Date Recorded In the past 12 months has [facility] [employer], gas, oil, or water [employer] threatened to shut off services in your [...] often do you attend chur ch or denominational services? Never 07/13/2022 Do you belong to any clubs o r organizations such as religious groups, unions, fraternal or athletic groups, or [...] Answer Date Recorded PHQ-2 Score 2 05/25/2024 [facility] - Occupational Stress Questionnaire Answer Date [...] your living situation today? I have a [facility] place to live 07/22/2023 Education Answer [...] st Contact Info) Description 06/14/2024 9:30 AM HEALTHCARE RECEPTIONIST Comprehensive Visit Department of Orthopedic Surgery in [place], [place] [address] [place] [phone] Jake Rahman M.B.B.S. [address] [place] [phone] 06/21/2024 9:15 AM HEALTHCARE RECEPTIONIST Procedure visit Department of Urology in [place], [place] [address] [place] [phone] Jack Galvez M.D. [address] [place] [phone] documented as of this encounter Visit Diagnoses Not on filedocumented in this encounter Additional Health Concerns Assessment Noted Time PHQ-9 Depression Total Score: 9 07/19/19 23 11:57 AM HEALTHCARE RECEPTIONIST documented as of this encounter Care Teams Rn Peritoneal Dialysis Relationship Specialty Start Date End Date Lula Ruiz M.D. [address] [phone] PCP - General 10/31/23 documented as of this encounter
--- OUTSIDE RECORDS SUMMARY | 2024-06-12 19:50 | XMS_ITS | Encounter Summary ---
Author Organization [facility] Address [address] [place] [address] Care Team Providers Care Rn Visiting Name Role Phone Lula Ruiz M.D. Primary Care Provider + Reason for Visit * Reason Comments Pre-op Exam Eye surgery - left e ye 06/08, right 06/15 * Appointment Request (Routine) - Closed Specialty Diagnoses / Procedures Referred By Hina dillon Referred To Contact Family Medicine Referral ID Status Reason Start Date Expiration Date Visits Re quested Visits Authorized [id number] Closed 04/29/2024 04/29/2025 1 1 Encounter Details Date Type Department Care Team (Late st Contact Info) Description 05/31/2024 9:30 AM WEB MERCHANT Office Visit Department of Family Medicine, [facility], in [place], [place] [address] [phone] Trish Cardoso, ROSA, C.N.P. [address] [phone] Preoperative Exam (Primary Dx) Social History Tobacco [...] Recorded In the past 12 months has [employer], gas, oil, or water [employer] threatened to shut off services in your [...] often do you attend chur ch or moravian services? Never 07/13/2022 Do you belong to any clubs o r organizations such as restorationist groups, unions, fraternal or athletic groups, or [...] Answer Date Recorded PHQ-2 Score 2 05/25/2024 [facility] Occupat ional Health - Occupational Stress [...] your living situation today? I have a [facility] place to live 07/22/2023 Education Answer [...] Comments Blood Pressure 102/65 05/31/2024 9:07 AM WEB MERCHANT Pulse 80 05/31/2024 9:07 AM WEB MERCHANT Temperature 37.3 C (99.1 F) 05/31/2024 9:07 AM WEB MERCHANT Respiratory Rate - - Oxygen Saturation - - Inhaled Oxygen Concentration - - Weight 65.6 kg (144 lb 10 oz) 05/31/2024 9:07 AM WEB MERCHANT Height 177 cm (5' 9.69) 05/31/2024 9:07 AM WEB MERCHANT Body Mass Index 20.94 05/31/2024 9:07 AM WEB MERCHANT documented in this encounter H&P Notes * Trish Cardoso, ROSA, C.N.P. - 05/31/2024 9:30 AM CST SUBJECTIVE CHIEF COMPLAINT/REASON FOR CONSULT Chief Complaint Patient presents with Pre-op Exam Eye surgery - left eye 06/08, right 06/15 HISTORY OF PRESENT ILLNESS Vahid Young is a 64 y.o. male who presents today for a pre-operative consultation at the request [employer] who plans on performing Cataract surgery on the following date: 06/08/24 left eye and 06/15/24 right eye at [facility]. Based on information from the patient, the [...] ESTIMATED RISK OF GIOVANI-OPERATIVE CARDIAC , NON-FATAL [place], OR NON-FATAL CARDIAC ARREST: 0 Predictors (0.4% risk of major cardiac event). HASSELL ABCDEFGHINO CHECKLIST: A (Allergies): no. B (Bleeding [...] 08/29/2022 Procedure: MONITORING FACIAL NERVE.; Surgeon: Ángel Pack M.D.; Location: RST ROMB OR OTHER SURGICAL [...] Vaping Use Vaping status: former use Devices: [employer] Substance Use Topics Alcohol use: Yes Alcohol/week: [...] All questions answered. Trish Cardoso APRN, C.N.P. MERCHANT documented in this encounter Plan of Treatment Upcoming Encounters Date Type Department Care Team (Late st Contact Info) Description 06/14/2024 9:30 AM WEB MERCHANT Comprehensive Visit Department of Orthopedic Surgery in [place], [place] [address] [place] [phone] Jake Rahman M.B.BTrentSTrent [address] [place] [phone] 06/21/2024 9:15 AM WEB MERCHANT Procedure visit Department of Urology in [place], [place] [address] [phone] Jack Galvez M.D. [address] [phone] documented as of this encounter Visit Diagnoses Diagnosis Preoperative Exam- Primary documented in this encounter Additional Health Concerns Assessment Noted Time PHQ-9 Depression Total Score: 9 07/19/19 23 11:57 AM WEB MERCHANT documented as of this encounter Care Teams Rn Visiting Relationship Specialty Start Date End Date Lula Ruiz M.D. [address] [phone] PCP - General 10/31/23 documented as of this encounter
--- OUTSIDE RECORDS SUMMARY | 2024-06-12 19:50 | XMS_ITS | Encounter Summary ---
Author Organization [facility] Address [address] [place] [address] Care Team Providers Care Financial Investment Manager Name Role Phone Lula Ruiz M.D. Primary Care Provider + Reason for Referral * Outpatient (Routine) - Authorized Specialty Diagnoses / Procedures Referred By Hina dillon Referred To Contact Diagnoses Benign Prostatic Hyperplasia Hypertrophy With Obstruction Procedures Cystoscopy (specific provider) Jack Galvez M.D. [address] [place] [phone] Phone: tel: fax: Jack Galvez M.D. [address] [place] [phone] Phone: tel: fax: Referral ID Status Reason Start Date Expiration Date V isits Requested Visits Authorized [id number] Authorized 05/31/2024 05/31/2025 1 1 NUT CANDY MAKER Reason for Visit * Reason Comments Benign Prostatic Hypertrophy * Appointment Request (Routine) - Closed Specialty Diagnoses / Procedures Referred By Contac t Referred To Contact Urology Referral ID Status Reason Start Date Expiration Date Visits Re quested Visits Authorized [id number] Closed 05/24/2024 05/24/2025 1 1 Encounter Details Date Type Department Care Team (Late st Contact Info) Description 05/31/2024 8:45 AM COCONUT CANDY MAKER Office Visit Department of Urology in [place], [place] [address] [place] [phone] Jack Galvez M.D. [address] [place] [phone] Benign Prostatic Hyperplasia Hypertrophy With [...] 0.6 oz pur e alcohol) Daily caffeine [facility] Utilities Answer Date Recorded In the past 12 months has e [employer], gas, oil, or water [employer] threatened to shut off services in your [...] any clubs o r organizations such as orthodox groups, unions, fraternal or athletic groups, [...] Answer Date Recorded PHQ-2 Score 2 05/25/2024 [facility] - Occupational Stress Questionnaire Answer Date [...] cholesterol. Jack Galvez M.D. 05/31/24 8:59 AM COCONUT CANDY MAKER NUT CANDY MAKER documented in this encounter Plan of Treatment Upcoming Encounters Date Type Department Care Team (Late st Contact Info) Description 06/14/2024 9:30 AM COCONUT CANDY MAKER Comprehensive Visit Department of Orthopedic Surgery in [place], [place] [address] [place] [phone] Jake Rahman M.B.BTrentS. [address] [place] [phone] 06/21/2024 9:15 AM COCONUT CANDY MAKER Procedure visit Department of Urology in [place], [place] [address] [phone] Jack Galvez M.D. 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 [address] [place] [phone] PCP - General 10/31/23 documented as of this encounter
[2024-06-12 19:52] LABS: Anion Gap 13 mEq/L (7-15); Blood Urea Nitrogen* 8 mg/dL (7-30); Calcium* 9.3 mg/dL (8.4-10.6); Carbon Dioxide* 22 mmol/L (20-32); Creatinine* 0.7 mg/dL (0.5-1.5); Estimated Glomerular Filt Rate 103 ml/min; Glucose* 82 mg/dL (60-115)
[2024-06-12 19:53] LABS: D Dimer Quantitative* 0.39 ug/ml (0.00-0.50)
[2024-06-12 20:02] LABS: NT Pro B Type NatriureticPept* 24 pg/mL
[2024-06-12 20:31] VITALS: BP 106/64; PULSE 79; RESP 20; TEMP 36.7; O2SAT 99
[2024-06-12 20:33] VITALS: BP 106/64; PULSE 79; RESP 20; TEMP 36.7
== END 2024-06-12 20:34 | disposition home or self-care (01) ==
PROVIDERS: Emergency Provider Family Medicine
DX: J44.1 Chronic obstructive pulmonary disease with (acute) exacerbation (principal); E87.1 Hypo-osmolality and hyponatremia; R10.31 Right lower quadrant pain
CPT/HCPCS: 36415; 80048; 83735; 83880; 84484; 85379; 87631; 94761; 96374; 99284; J2919